=== PATIENT | male | born 1980 | race Caucasian/White ===

== ENCOUNTER 2017-11-12 22:11 | Emergency (ER) | payer MEDICAID, SELFPAY ==
[2017-11-12 22:12] VITALS: BP 121/68; PULSE 80; RESP 17; TEMP 36.8; O2SAT 98; BMI 19.0
--- NOTE | 2017-11-12 23:03 | ED.VISSUMM ---
- ER Visit Summary Date of Service: 11/12/17 Chief Complaint: Redness on hand History of Present Illness: The patient is a 36 M presents to the emergency department with redness on left thumb. The patient states that he works third shift. He states he got home and went to sleep. He states he woke at about 2:00 this afternoon. He had severe itching on his left thumb. He had 3 small areas that look like bites. He denies any fevers or chills. He denies any trauma. He states he is allergic to multiple bites and this feels similar. He states he has never really had anything like this on his hands before. He denies any trauma. He has no history of immunosuppression. Physical Examination: Exam is relatively unremarkable. The patient has 3 small circular areas of erythema the lateral border of the left thumb. There is no streaking. There is no paronychia or felon. There is no evidence of cellulitis. There is no excoriation. Cap refill is less than 2 seconds. Test Results: [] Emergency Department Course and Treatment: It does seem almost allergic this redness that the patient is having. However, as it was acute redness I am going to cover him for both allergic inflammation versus infectious process. The patient was started on prednisone and Benadryl. I will also cover him with Bactrim. He is counseled on concerning symptoms and reasons to return. The patient will be discharged home. Treatment Plan: [] Disposition: Charge Impression: 1. Allergic erythema of left thumb This note was generated with [employer] dictation software. It may contain incorrect words, spelling, and punctuation that were not noted in review of the chart prior to signing ED Disposition - Plan for ED Patient: Chief Complaint: Cellulitis Instructions: ED Bite Sting Insect Local Allergic React Prescriptions: Prednisone 10 mg PO UD #33 tab Smz/Tmp Ds [Bactrim Ds] 1 tab PO BID #14 tab Referrals: Care Physician,No Primary [Primary Care Provider] -
--- NOTE | 2017-11-12 23:09 | ED.DCSUM_ITS ---
- ER Visit Summary Date of Service: 11/12/17 Chief Complaint: Redness on hand History of Present Illness: The patient is a 36 M presents to the emergency department with redness on left thumb. The patient states that he works third shift. He states he got home and went to sleep. He states he woke at about 2: 00 this afternoon. He had severe itching on his left thumb. He had 3 small areas that look like bites. He denies any fevers or chills. He denies any trauma. He states he is allergic to multiple bites and this feels similar. He states he has never really had anything like this on his hands before. He denies any trauma. He has no history of immunosuppression. Physical Examination: Exam is relatively unremarkable. The patient has 3 small circular areas of erythema the lateral border of the left thumb. There is no streaking. There is no paronychia or felon. There is no evidence of cellulitis. There is no excoriation. Cap refill is less than 2 seconds. Test Results: [] Emergency Department Course and Treatment: It does seem almost allergic this redness that the patient is having. However, as it was acute redness I am going to cover him for both allergic inflammation versus infectious process. The patient was started on prednisone and Benadryl. I will also cover him with Bactrim. He is counseled on concerning symptoms and reasons to return. The patient will be discharged home. Treatment Plan: [] Disposition: Charge Impression: 1. Allergic erythema of left thumb This note was generated with [employer] dictation software. It may contain incorrect words, spelling, and punctuation that were not noted in review of the chart prior to signing ED Disposition - Plan for ED Patient: Chief Complaint: Cellulitis Instructions: ED Bite Sting Insect Local Allergic React Prescriptions: Prednisone 10 mg PO UD #33 tab Smz/Tmp Ds [Bactrim Ds] 1 tab PO BID #14 tab Referrals: Care Physician,No Primary [Primary Care Provider] -
[2017-11-12] MEDS: Smz/Tmp Ds Tablet 1 TABLET PO (23:18)
[2017-11-12] MEDS: DiphenhydrAMINE 25 MG Capsule 50 MG PO (23:18)
[2017-11-12] MEDS: predniSONE 20 MG Tablet 60 MG PO (23:19)
== END 2017-11-12 23:22 | disposition home or self-care (01) ==
PROVIDERS: Emergency Provider Emergency Medicine
DX: T78.40XA Allergy, unspecified, initial encounter (principal); X58.XXXA Exposure to other specified factors, initial encounter; Z72.0 Tobacco use
CPT/HCPCS: 99283

== ENCOUNTER 2018-07-10 23:50 | Emergency (ER) | payer OTHER, SELFPAY ==
[2018-07-10 23:52] VITALS: BP 145/82; PULSE 81; RESP 15; TEMP 36.3; O2SAT 100; BMI 19.7
[2018-07-11 00:05] VITALS: BP 145/82; PULSE 81; RESP 18; TEMP 36.3
--- NOTE | 2018-07-11 00:17 | ED.VISSUMM ---
- ER Visit Summary Date of Service: 07/11/18 Chief Complaint: Dental pain History of Present Illness: The patient is a 37 M who presents with dental pain. He has a history of prior dental pain and dental problems but has not actually had any surgeries or procedures such as dental extractions. He does not have a dentist. He states over the past week he has had increased pain particularly in 1 of his right lower molars. Denies heat or cold sensitivity or chest pain shortness of breath nausea vomiting diarrhea. Physical Examination: Afebrile vitals normal Patient has widespread dental decay no focal abscess amenable to incision and drainage here in the emergency department he does have dental tenderness of the right mandibular third molar No trismus uvula midline clear speech Heart regular rate and rhythm Lungs clear Test Results: Not indicated Emergency Department Course and Treatment: Patient was given naproxen and clindamycin here as well as prescriptions for the same. He was given a list of dental resources in the area. He understands to return for new or worsening symptoms. He was discharged. Treatment Plan: [] Disposition: Discharge Impression: Odontalgia This note was generated with [employer] dictation software. It may contain incorrect words, spelling, and punctuation that were not noted in review of the chart prior to signing ED Disposition - Plan for ED Patient: Chief Complaint: Dental Referrals: Care Physician,No Primary [Primary Care Provider] -
--- NOTE | 2018-07-11 00:19 | ED.DEP ---
ED Disposition - Plan for ED Patient: Chief Complaint: Dental Instructions: ED Tooth Pain Prescriptions: Naproxen [Naprosyn] 500 mg PO BID #20 tab Clindamycin HCl 300 mg PO TID #30 cap Referrals: Care Physician,No Primary [Primary Care Provider] -
[2018-07-11] MEDS: Clindamycin HCl 150 MG Capsule 300 MG PO (00:36)
[2018-07-11] MEDS: Naproxen 500 MG Tablet PO (00:36)
--- OUTSIDE RECORDS SUMMARY | 2018-10-14 08:04 | XMS RPT_ITS ---
:1980 Author Organization OHIP Support Name Relationship Address Phone [employer] Unavailable [address] + [address] [place] [address] SHERRI, MARQUIS Unavailable [address] + [place] [address] [employer] Unavailable [address] + [address] [place] [address] SHERRI, MARQUIS Unavailable [address] + [place] [address] [employer] Unavailable [address] + [address] [place] [address] SHERRI, MARQUIS Unavailable [address] + [place] [address] [employer] Unavailable [address] + [address] [place] [address] SHERRI, MARQUIS Unavailable [address] + [place] [address] [employer] Unavailable [address] + [address] [place] [address] SHERRI, MARQUIS Unavailable [address] + [place] [address] [employer] Unavailable [address] + [address] [place] [address] SHERRI, MARQUIS Unavailable [address] + [place] [address] [employer] Unavailable [address] + [address] [place] [address] SHERRI, MARQUIS Unavailable [address] + [place] [address] [employer] Unavailable [address] + [address] [place] [address] MARQUIS POLANCO Unavailable [address] + [place] [address] [employer] Unavailable [address] + [address] [place] [address] MARQUIS POLANCO Unavailable [address] + [place] [address] Care Team Providers Name Role Phone Primay Care Physicia, No Primary Care Unavailable Mark Lux Attending Unavailable Primay Care Physicia, No Primary Care Unavailable Lela Wild Attending Unavailable Primay Care Physicia, No Primary Care Unavailable Thomas, Rainer Admitting Unavailable Taryn, Heron Consulting Unavailable Kittoe, Christiano Attending Unavailable Htomas, Rainer Attending Unavailable Primay Care Physicia, No Primary Care Unavailable Thomas, Rainer Admitting Unavailable Kittoe, Christiano Attending Unavailable Primay Care Physicia, No Primary Care Unavailable Taryn, Heron Consulting Unavailable Kittojaylon, Christiano Consulting Unavailable Thomas, Rainer Admitting Unavailable Kittoe, Christiano Attending Unavailable [place]ay Care Physicia, No Primary Care Unavailable Taryn, Heron Consulting Unavailable Kittoe, Christiano Consulting Unavailable Primay Care Physicia, No Primary Care Unavailable Tyree Dover Attending Unavailable Primay Care Physicia, No Primary Care Unavailable Tyree Dover Attending Unavailable Primay Care Physicia, No Primary Care Unavailable Brian Dorado Attending Unavailable PROBLEMS PROBLEMS No Problem Records FoundPROCEDURES PROCEDURES No Procedure Records FoundRESULTS RESULTS EMERGENCY DEPARTMENT Observed: 08/17/2018 Status: F Source: [place] SUMMARY 3:51 PM [facility] Medical Records Department [address] [place] [address] Emergency Department Summary 08/17/18 1547 MR#: [id number] Acct: [id number] Name: MYLES POLANCO Rep #: [id number] : 1980 37 From: Brian Dorado MD PCP: Care Physician, No Primary Status: REG ER - ER Visit Summary Date of Service: 08/17/18 Chief Complaint: Upper midline abdominal pain with one episode of vomiting. History of Present Illness: The patient is a 37 M who was recently admitted to the hospital and on EGD performed by Dr. Heron Velasco was noted to have a small hiatal hernia and acute gastritis. He was discharged home and prescribed Zofran for his nausea and vomiting and a PPI for his gastritis. Biopsies were taken. He returned several days later and was seen in the emergency room and discharged home. He denies black, maroon colored stool or blood in his stool. He states prior to today the last time he vomited was Friday and only vomited once. He states the fluid was cereal that he just ate. He denies fever, chills night sweats. Denies orthostatic symptoms. He denies cardiac respiratory symptoms. He denies food intolerance. He denies urologic symptoms. Physical Examination: Vital signs noted and normal. He is a thin gentleman. HEENT exam is unremarkable and conjunctive is pink. Lungs are clear to auscultation. Heart is regular without murmur, gallop or rub. Patient has pain to palpation of the upper abdomen. Negative Beth sign. Negative guarding or rebound tenderness. No evidence of umbilical hernia. There is no CVA tenderness noted. Neuro exam is nonfocal. Test Results: NG was placed and there was no blood or coffee- ground gastric fluid. No other tests were done. Emergency Department Course and Treatment: NG was placed to assess for active GI bleeding or recent GI bleed. He was treated with Pepcid and GI cocktail. He reports improvement. Treatment Plan: Discharge to home and follow-up with Dr. Byrd as scheduled Disposition: Discharge in stable condition Impression: 1. Upper abdominal pain secondary to gastritis, acute 2. Nausea and vomiting This note was generated with c3 creations dictation software. It may contain incorrect words, spelling, and punctuation that were not noted in review of the chart prior to signing ED Disposition - Plan for ED Patient: Disposition: Home or Assisted Living Chief Complaint: Abd Pain Instructions: ED Gastritis Referrals: Care Physician,No Primary [Primary Care Provider] - Heron Velasco MD [STAFF PHYSICIAN] - Keep Nagi appointment Additional Instructions: Take Mylanta every 2-4 hours as needed for the next day or 2. Do not question your pills take them as instructed. What to do if you have Problems For any increased pain, shortness of breath, bleeding, nausea or vomiting, chest pain, or any unexpected problems, contact your Primary Care Provider. Call [facility] ([phone]) or report to the closest Emergency Room. Call 911 if necessary. 08/17/18 1551 <Electronically signed by Brian Dorado MD> Date Brian Dorado MD Cosigner Signature (If Indicated): Date CC: No Primary Care Physician; Heron Velasco MD EMERGENCY DEPARTMENT Observed: 08/14/2018 Status: F Source: [place] SUMMARY 3:18 PM [facility] Medical Records Department [address] [place] [address] Emergency Department Summary 08/14/18 1454 MR#: [id number] Acct: [id number] Name: MYLES POLANCO Rep #: [id number] : 1980 37 From: Tyree Dover MD PCP: Care Physician, No Primary Status: REG ER - ER Visit Summary Date of Service: 08/14/18 Chief Complaint: Fatigue History of Present Illness: The patient is a 37 M presents to the emergency department fatigue. The patient was recently admitted a few days ago. He had a Priscila-Horn tear. He underwent endoscopy and was placed on PPI. Patient has been following with Dr. Byrd. He was actually scheduled to start work again tonight, but states he just does not feel like he is strong enough to go back to work. States his pain is markedly improved. He had no further vomiting. He had no bright red blood per rectum. He had no fevers or chills. He states he is just felt mildly fatigued since leaving the hospital. I will just feels like he is improving, but is still mildly uncomfortable. Physical Examination: Vital signs reviewed General: Well-nourished, well-developed Head: Normocephalic, atraumatic Eyes: Pupils equal and reactive, extraocular muscles intact Neck, supple, no lymphadenopathy Heart: Regular rate and rhythm Respiratory: No distress, clear bilaterally Abdomen: Soft, nontender, nondistended, no peritoneal signs Back: Nontender Extremities: Nontender, no edema, no cords Skin: Normal color no rash Neuro: Alert and oriented, no focal or lateralizing deficits Test Results: [] Emergency Department Course and Treatment: The patient presents with fatigue after surgical procedure. He is well-appearing. His vitals are normal. His abdomen is soft and nontender. He states that he does feel like he will be able to go back to surgery on Friday. I do feel that this is reasonable. I am going to write him off for tonight and have him return to work on Friday. He was counseled concerning symptoms and reasons to return. He will be discharged home. Treatment Plan: [] Disposition: Discharge Impression: 1. Fatigue status post surgery This note was generated with c3 creations dictation software. It may contain incorrect words, spelling, and punctuation that were not noted in review of the chart prior to signing ED Disposition - Plan for ED Patient: Chief Complaint: General Illness Instructions: ED Weakness UKO Referrals: Care Physician,No Primary [Primary Care Provider] - What to do if you have Problems For any increased pain, shortness of breath, bleeding, nausea or vomiting, chest pain, or any unexpected problems, contact your Primary Care Provider. Call [facility] ([phone]) or report to the closest Emergency Room. Call 911 if necessary. 08/14/18 1518 <Electronically signed by Tyree Dover MD> Date Tyree Dover MD Cosigner Signature (If Indicated): Date CC: No Primary Care Physician 12 LEAD ELECTROCARDIOGRAM Observed: 08/13/2018 Status: F Source: [place] 4:16 PM [facility] Cardiovascular Services [address] [place] [address] 12 Lead EKG 08/11/18 0504 MR#: [id number] Acct: [id number] Name: MYLES POLANCO Rep #: [id number] : 1980 37 From: Rainer Kee MD Attending Dr: Christiano Singh MD Status: DIS BARRY Ordering Dr: Karen Peterson MD Date: 08/11/18 Location: [facility]3 Sex: M C Admitted: 08/10/18 Test Reason : AM EKG Blood Pressure : / mmHG Vent. Rate : 071 BPM Atrial Rate : 071 BPM P-R Int : 148 ms QRS Dur : 090 ms QT Int : 404 ms P-R-T Axes : 085 066 072 degrees QTc Int : 439 ms Normal sinus rhythm Normal ECG Confirmed by VIDHYA BUTT, RAINER ([id number]), food editor LAWRENCE HAGEN ([id number]) on 08/13/2018 4:16:42 PM Referred By: DAVID Confirmed By:RAINER KEE MD 08/13/18 1616 Date Rainer Kee MD CC: Karen Peterson MD; No Primary Care Physician; Christiano Singh MD Signed PROGRESS Observed: 08/12/2018 Status: COMPLETED Source: [place] 7:07 PM [facility] O ID: [id number] Author: Heron Velasco Service: (none) Author Type: Physician Type: Progress Notes Filed: 08/12/2018 7:10 PM Note Text: OPERATIVE NOTATION FOR [facility] SURGICAL PROCEDURE. August 11, 2018 Myles Polanco 1980 [id number] male PROCEDURE: EGD WITH BIOPSY - [id number] SURGEON: Hawk Velasco M.D. FACS CLERK FUNERAL DETAIL: None DEPT: WQ PROVIDER: [id number] Velasco MD POS: [id number] DIAGNOSIS: (R11.2) Nausea and vomiting, intractability of vomiting not specified, unspecified vomiting type (primary encounter diagnosis) ASA CLASS: 2 - mild FINDINGS: COMPLICATIONS: None PMHx - PAST MEDICAL HISTORY Diagnosis Date - NEGATIVE MEDICAL HISTORY COMORBIDITIES - None Post Op Occurrences - None Wound Classification - Clean Contaminated Operative note dictated in the [facility] dictation system. Heron Velasco MD DISCHARGE SUMMARY Observed: 08/12/2018 Status: F Source: [place] 9:22 AM [facility] Medical Records Department [address] [place] [address] Discharge Summary 08/12/18 0919 MR#: [id number] Acct: [id number] Name: MYLES POLANCO Rep #: [id number] : 1980 37 From: Christiano Singh MD PCP: Care Physician, No Primary Status: ADM BARRY Y Location: [place] [address] Discharge Date and Diagnosis - Problem List Patient Problems: Active and Suspected Problems Priscila-Horn tear (Acute) Hematemesis with nausea (Acute) Abdominal pain (Acute) Date of Admission: 08/10/18 Date of Discharge: 08/12/18 - Primary Discharge Diagnosis Active and Suspected Problems Priscila-Horn tear (Acute) Hematemesis with nausea (Acute) Abdominal pain (Acute) Hospital Course and Treatment Imaging Results: 08/12/18 06:00 Abd Inc Decub and/or Erect [RAD] Routine Summary of Care Provided: Patient is a 37-year-old gentleman who presented with intractable nausea vomiting associated with hematemesis. Admitted to regular nursing floor and consultation placed to Dr. Byrd for possible endoscopic evaluation 1. Suspected gastritis: Patient admitted to a regular nursing floor kept n.p.o. overnight started on PPI and consultation placed to Dr. Byrd for possible endoscopic evaluation. Patient underwent EGD on 08/11/2018 findings included Priscila- Horn tear started on PPI 2. Acute kidney injury secondary to above patient is on IV fluids with monitoring of electrolyte 3. Tobacco dependence counseled on cessation, offered nicotine patch for tobacco cravings 4. DVT prophylaxis low risk did encourage early ambulation Patient Problems: Active and Suspected Problems Priscila-Horn tear (Acute) Hematemesis with nausea (Acute) Abdominal pain (Acute) - Physical Exam General: Alert HEENT: Atraumatic Oral: Moist Mucosa Neck: Supple Lungs: Clear to auscultation Cardiovascular: Regular rate, Regular Rhythm Neurological: Neuro grossly intact Psych/Mental Status: Normal Affect Vital Signs Temp Pulse Resp BP Pulse Ox 97.9 F 73 18 96/58 L 100 08/12/18 08:12 08/12/18 08:12 08/12/18 08:12 08/12/18 08:12 08/12/18 08:12 Oxygen Delivery Method Room Air Weight: 60.5 kg Body Mass Index (BMI) 18.1 Intake and Output for Last 24 Hours Intake Total 2762 / 2762 2082 Output Total 50 / 50 Balance 271 / 2712 2082 Discharge Diet: No Restrictions Discharge Activity: Return to Normal Activity Home Medications: Medications to take at Discharge Ondansetron [Zofran Odt] 4 mg PO Q8H PRN PRN #14 tablet 08/12/18 Pantoprazole Sodium [Protonix] 40 mg PO DAILY #60 tablet 08/12/18 Following Prescrptions Were Given to Patient: Ondansetron [Zofran Odt] 4 mg PO Q8H PRN PRN #14 tablet PRN Reason: Nausea/Vomiting Pantoprazole Sodium [Protonix] 40 mg PO DAILY #60 tablet Primary Care Physician: Care Physician,No Primary [Primary Care Provider] - Please follow up with your Primary Care Physician in: in 1- 2 weeks Please Follow Up With: Heron Velasco MD When: in 1-2 weeks Disposition: Home Minutes spent on discharge:: 35 Patient Condition:: Stable Medical Necessity - Tobacco Use Smoking Status: Current every day smoker Tobacco Use: Cigarettes Meaningful Use Info Meaningful Use Diagnoses (Choose all that apply): None applicable Code Visit OBSV E AND M: 07374 Observation care discharge 08/12/18921 <Electronically signed by Christiano Singh MD> Date Christiano Singh MD Cosigner Signature (if applicable): Date CC: No Primary Care Physician; Christiano Singh MD Signed DISCHARGE INSTRUCTION Observed: 08/12/2018 Status: F Source: [place] 9:19 AM [facility] Medical Records Department [address] [place] [address] Instructions for Home/Discharge Instructions 08/12/18917 MR#: [id number] Acct: [id number] Name: MYLES POLANCO Rep #: [id number] : 1980 37 From: Christiano Singh MD PCP: Care Physician, No Primary Status: ADM BARRY - Discharge Diagnoses Current Active Problems: Current Active and Chronic Problems Hematemesis with nausea (Acute) Abdominal pain (Acute) You will use the following diet at home:: No restrictions Discharge Activity: Return to Normal Activity Allergies/Adverse Reactions: Allergies bee venom protein (honey bee) Allergy (Verified 08/10/18 20:07) Rash clindamycin Allergy (Verified 08/10/18 20:07) Rash Penicillins Allergy (Verified 08/10/18 20:07) Rash GETS A FEVER WELL Medications to take at Discharge Ondansetron [Zofran Odt] 4 mg PO Q8H PRN PRN #14 tablet 08/12/18 Pantoprazole Sodium [Protonix] 40 mg PO DAILY #60 tablet 08/12/18 The following prescriptions were given: Ondansetron [Zofran Odt] 4 mg PO Q8H PRN PRN #14 tablet PRN Reason: Nausea/Vomiting Pantoprazole Sodium [Protonix] 40 mg PO DAILY #60 tablet Primary Care Physician: Care Physician,No Primary [Primary Care Provider] - Please follow up with your Primary Care Physician in: in 1- 2 weeks Test Results: Test results from this visit will be discussed in further detail at your follow-up appointment, if applicable. Please Follow Up With: Heron Velasco MD When: in 1-2 weeks Proposed Discharge Date: 08/12/18 08/12/18918 <Electronically signed by Christiano Singh MD> Date Christiano Singh MD CC: No Primary Care Physician; Heron Velasco MD Signed ABD INC DECUB Observed: 08/12/2018 Status: F Source: [place] AND/OR ERECT 12:00 AM [facility] Imaging Services [address] [place] [address] Abd Inc Decub and/or Erect MR#: [id number] Acct: [id number] Name: MYLES POLANCO T Rep #: [id number] : 1980 M 37 From: Johnnie Rolle PCP: Care Physician, No Primary Status: ADM BARRY Study: Abd Inc Decub and/or Erect Date of Exam: 08/12/18 Exam# [id number] Ordering Dr: Heron Velasco MD STUDY: X-RAY - ABDOMEN/PELVIS REASON FOR EXAM: Male, 37 years old. Hematemesis with nausea and vomiting. TECHNIQUE: AP supine abdomen. COMPARISON: 08/11/2018. FINDINGS: Normal visualized lung bases. Moderate stool throughout the colon. Dilated loop of small bowel left upper quadrant measuring 3.7 cm in transverse dimension. There is no demonstrated free abdominal air. The visualized liver, spleen and kidneys are grossly normal in size and morphology. Normal soft tissue structures. Normal visualized osseous structures. RAD/Abd Inc Decub and/or Erect IMPRESSION: Nonspecific bowel gas pattern. Stool is present throughout the colon which may represent constipation. Isolated dilated loop of proximal small bowel left upper quadrant. Recommend continued follow-up. Consider CT abdomen and pelvis to exclude an early proximal small bowel obstruction. Electronically Signed: Johnnie Rolle MD at 7:23 EST , Service support , CC: No Primary Care Physician; Heron Velasco MD Ic Designer Gate Arrays: Signed ABD INC DECUB Observed: 08/11/2018 Status: F Source: [place] AND/OR ERECT 11:37 AM [facility] Imaging Services [address] [place] [address] Abd Inc Decub and/or Erect MR#: [id number] Acct: [id number] Name: MYLES POLANCO Rep #: [id number] : 1980 M 37 From: Derrick Weems MD PCP: Care Physician, No Primary Status: ADM BARRY Study: Abd Inc Decub and/or Erect Date of Exam: 08/11/18 Exam# [id number] Ordering Dr: Heron Velasco MD STUDY: X-RAY - ABDOMEN/PELVIS REASON FOR EXAM: Male, 37 years old. Abdominal pain post EGD. TECHNIQUE: AP supine and left lateral decubitus views of the abdomen and pelvis on 4 films. COMPARISON: None. FINDINGS: Normal visualized lung bases. There is a nonspecific pattern of gas in nondistended loops of small bowel and colon, including the rectal vault. Moderate stool also seen within the colon to the mid sigmoid. There is no demonstrated free abdominal air. The visualized liver, spleen and kidneys are grossly normal in size and morphology. Normal soft tissue structures. Degenerative changes suggested in the lumbosacral facet joints. RAD/Abd Inc Decub and/or Erect IMPRESSION: Nonspecific bowel gas pattern, as described. No free gas. Electronically Signed: Ortega Weems MD at 16:20 EST , Service support , CC: No Primary Care Physician; Heron Velasco MD Ic Designer Gate Arrays: Signed OPERATIVE REPORT - Observed: 08/11/2018 Status: F Source: [place] ENDOSCOPY 11:12 AM [facility] Medical Records Department [address] [place] [address] Operative Report - Endoscopy MR#: [id number] Acct: [id number] Name: MYLES POLANCO Rep #: [id number] : 1980 37 From: Heron Velasco MD PCP: Care Physician, No Primary Status: ADM BARRY Patient Name: Myles Polanco Procedure Date: 08/11/2018 10:26 AM Date of : 1980 Age: 37 Procedure: Upper GI endoscopy Indications: Hematemesis, Nausea with vomiting Providers: Heron Velasco MD Medicines: Monitored Anesthesia Care Patient Profile: This is a 37 year old male. Refer to note in patient chart for documentation of history and physical. Patient has symptoms. Complications: No immediate complications. Procedure: Pre-Anesthesia Assessment: - Prior to the procedure, a History and Physical was performed, and patient medications and allergies were reviewed. The patient is competent. The risks and benefits of the procedure and the sedation options and risks were discussed with the patient. All questions were answered and informed consent was obtained. Patient identification and proposed procedure were verified by the physician and the nurse in the procedure room. Mental Status Examination: alert and oriented. Airway Examination: normal oropharyngeal airway and neck mobility. Respiratory Examination: clear to auscultation. CV Examination: normal. Prophylactic Antibiotics: The patient does not require prophylactic antibiotics. Prior Anticoagulants: The patient has taken no previous anticoagulant or antiplatelet agents. ASA Grade Assessment: II - A patient with mild systemic disease. After reviewing the risks and benefits, the patient was deemed in satisfactory condition to undergo the procedure. The anesthesia plan was to use moderate sedation / analgesia (conscious sedation). Immediately prior to administration of medications, the patient was re-assessed for adequacy to receive sedatives. The heart rate, respiratory rate, oxygen saturations, blood pressure, adequacy of pulmonary ventilation, and response to care were monitored throughout the procedure. The physical status of the patient was re-assessed after the procedure. After obtaining informed consent, the endoscope was passed under direct vision. Throughout the procedure, the patient's blood pressure, pulse, and oxygen saturations were monitored continuously. The gastroscope was introduced through the mouth, and advanced to the jejunum. The upper GI endoscopy was accomplished without difficulty. The patient tolerated the procedure well. Scope In: 10:57:59 AM Scope Out: 11:04:54 AM Total Procedure Duration Time 0 hours 6 minutes 55 seconds Findings: The examined jejunum was normal. Patchy moderately erythematous mucosa without active bleeding and with no stigmata of bleeding was found in the duodenal bulb. Scattered mild inflammation characterized by erosions, erythema and friability was found in the gastric antrum. Biopsies were taken with a cold forceps for histology. Biopsies were taken with a cold forceps for Helicobacter pylori testing using PyloriTek test. A small hiatal hernia was present. A medium non-bleeding Priscila-Horn tear with stigmata of recent bleeding was found. Non-severe esophagitis with no bleeding was found. Biopsies were taken with a cold forceps for histology. The middle third of the esophagus was normal. Biopsies were taken with a cold forceps for histology. Impression: - Normal examined jejunum. - Erythematous duodenopathy. - Gastritis. Biopsied. - Small hiatal hernia. - Priscila-Horn tear. - Non-severe reflux esophagitis. Biopsied. - Normal middle third of esophagus. Biopsied. Recommendation: - [facility]. - NPO. - Await pathology results. - Continue present medications. Procedure Code(s): --- Professional --- 68816, Esophagogastroduodenoscopy, flexible, transoral; with biopsy, single or multiple CPT copyright 2017 [employer]. All rights reserved. The codes documented in this report are preliminary and upon siebel architect review may be revised to meet current compliance requirements. Heron Velasco MD 08/11/2018 11:12:40 AM This report has been signed electronically. Number of Addenda: 0 Note Initiated On: 08/11/2018 10:26 AM 08/11/18 1112 Date Heron Velasco MD Cosigner Signature: Date (if indicated) CC: No Primary Care Physician; Christinao Singh MD; Heron Velasco MD Date Dictated: 08/11/18 1026 Date Transcribed: Ic Designer Gate Arrays: NEVILLE Signed IMMUNOHISTOCHEMISTRY Observed: 08/11/2018 Status: F Source: [place] 10:45 AM [facility] Patient: MYLES POLANCO : 1980 (37/M) Acct Num: [id number] Phys: Christiano Singh MD Unit Num: [id number] Loc: MS3 [id number] Specimen: [id number] Received: 08/11/18 - 7905 Spec Type: IMMUNO TISSUES 1 TISSUES: A. Stomach, NOS SPECIMEN INFORMATION: Tissue Source: A - Antrum biopsy, B - Distal esophagus biopsy Clinical Info: Nausea and vomiting coffee ground emesis; LUQ pain Specimen Number: [id number] A AND B CPT code: 78927 x2 METHODOLOGY: Deparaffinized sections of prefer/formalin-fixed tissue or PAP/DQ stained slides are incubated with monoclonal/polyclonal antibodies/oligonucleotide probes. Localization is made via biotin free immunoperoxidase method. Appropriate controls are performed and reacted as expected. Results on target cell population are indicated in the following table: RESULTS: ANTIBODY / CLONE RESULT Block A H Pylori (polyclonal) negative Block B P53 (DO-7) negative These tests were developed and their performance characteristics determined by [facility]. They may not have been cleared or approved by the U.S. Food and Drug Administration. The FDA has determined that such clearance or approval is not necessary. INTERPRETATION: A. Antrum, biopsy: Negative for Helicobacter pylori organisms. B. Distal esophagus, biopsy: No evidence of dysplasia. AM:[place] 08/13/18 PHYSICIAN AND INSTITUTION [place] [address] Signed Dillon Wang DO 08/13/18 <signature on file> Performed By: #### PIMM #### [facility] [address] [place] [address]. [place], [address] CONSULTATION Observed: 08/11/2018 Status: F Source: [place] 10:37 AM [facility] Medical Records Department [address] [place] [address] Consultation 08/11/18 1033 MR#: [id number] Acct: [id number] Name: MYLES POLANCO Rep #: [id number] : 1980 37 From: Heron Velasco MD PCP: Care Physician, No Primary Status: ADM BARRY Y Location: [place] [address] Reason for Consult Date of Consultation: 08/11/18 History of Present Illness: The patient is a 37 year old M with a complaint of epigastric pain and nausea. The patient symptoms started approximately 2 days prior to admission. the patient initially felt this was likely the stomach flu. He noted nausea and vomiting. He notes no flatus or bowel movements since Friday. As his symptoms progressed he noted abdominal pain which was more constant in the left upper quadrant. With vomiting, he initially noted just bile and food but later noted a degree of coffee grounds in his vomitus. The patient denies fever or chills. He noted no history of melena prior to this episode. the patient presented to [facility] with these above findings. Due to persistent nausea and vomiting and nasogastric tube was placed. NG aspirate was blood tinged clear fluid without obvious clots or coffee grounds. no additional imaging was performed.laboratory studies were unremarkable. The patient was admitted to the medicine service and I was contacted for upper endoscopy. Past Medical History Allergies bee venom protein (honey bee) Allergy (Verified 08/10/18 20:07) Rash clindamycin Allergy (Verified 08/10/18 20:07) Rash Penicillins Allergy (Verified 08/10/18 20:07) Rash GETS A FEVER WELL Surgical History: no surgical history Smoking Status: Current every day smoker - *Family History Maternal History Items: No pertinent history Review of Systems Constitutional: Reports: Weight Change - 7 pound weight loss over the last few days.. Denies: Chills, Fever HEENT: Denies: Head Aches, Sinus Congestion, Sinus Drainage Cardiovascular: Denies: Chest Pain, Palpitations Respiratory: Denies: Cough, Shortness of breath at rest, Sputum production Gastrointestinal: Reports: Abdominal Pain, Hematemesis, Vomiting. Denies: Nausea Genitourinary: Denies: Dysuria Musculoskeletal: Denies: Joint Pain, Joint Tenderness Skin: Denies: Rash, Wounds Neurological: Denies: Numbness, Tingling, Focal weakness Psychiatric: Denies: Anxiety, Depression, Homicidal Ideations, Suicidal Ideations Hematologic/ Lymphatic: Denies: Easy Bruising, Easy Bleeding Patient Problems: Active and Suspected Problems Hematemesis with nausea (Acute) Abdominal pain (Acute) - Physical Exam General: Alert, Oriented x3, Cooperative HEENT: Atraumatic, PERRLA, EOMI, Normocephalic Neck: Supple, No JVD, Negative Carotid Bruits Lungs: Clear to auscultation, Normal air movement Cardiovascular: Regular rate, No murmurs Abdomen: Bowel Sounds Present, Soft, Tender - mildly so in the left upper quadrant Extremities: No edema, Capillary Refill Less than 3 Seconds Skin: No rashes, No breakdown Musculoskeletal: No Tenderness to Palpation of Joints or Extremities Neurological: Cranial nerves II-XII grossly intact Psych/Mental Status: Normal Affect, Appropriate Vital Signs Temp Pulse Resp BP Pulse Ox 97.8 F 81 18 109/71 100 08/11/18 07:47 08/11/18 07:47 08/11/18 07:47 08/11/18 07:47 08/11/18 07:47 Oxygen Delivery Method Room Air Weight: 60.5 kg Body Mass Index (BMI) 18.1 Intake and Output for Last 24 Hours Intake Total 442 / 442 Output Total 50 / 50 Balance 392 / 392 Laboratory Tests Past 24 Hrs WBC 6.2 5.7 WBC RBC Hgb Hct MCV MCH MCHC RDW RDW Differential Assessment/Plan All Active Problems Hematemesis with nausea (Acute) Abdominal pain (Acute) nausea and vomiting and obstipation, questionable viral gastroenteritis, now with coffee grounds I plan to perform upper endoscopy. The patient understands the risks, benefits, possible complications and alternatives and consents to endoscopy. If there is no significant findings would likely leave the NG tube out. Would also recommend abdominal multiview to assess bowel gas pattern although no specific obstructive pattern was noted with NG placement x-ray. 08/11/18 1037 <Electronically signed by Heron Velasco MD> Date Heron Velasco MD Cosigner Signature (if applicable): Date CC: No Primary Care Physician; Heron Velasco MD Signed CBC W/DIFF, AUTOMATED Collected: 08/11/2018 Status: F Source: [place] 5:02 AM [facility] TYPE CODE TESTS RESULT OUT OF RANGE REFERENCE UNITS LAB L100.1000 4.4-11.0 K/mm3 Normal WBC 5.7 LAB L100.1200 4.6-6.2 M/mm3 Low RBC 4.40 LAB L100.1300 13.0-16.5 g/dl Normal HGB 13.3 LAB L100.1400 40-54 % Low HCT 38.4 LAB L100.1500 80-94 fL Normal MCV 87.3 LAB L100.1600 27.0-32.0 pg Normal MCH 30.2 LAB L100.1700 32-36 g/gl Normal MCHC 34.6 LAB L100.1810 11.6-14.6 % Normal RDW CV 13.0 LAB L100.1820 35.1-43.9 fl Normal RDW SD 40.6 LAB L100.1900 150-450 K/mm3 Normal PLT 182 LAB L100.2000 6.2-12.0 fl Normal MPV 9.1 LAB L100.2100 47-70 % Low NEUT% 46.7 LAB L100.2200 19-41 % Normal LY% 37.4 LAB L100.2300 0-10 % High MONO% 10.9 LAB L100.2400 0-5 % Normal EO% 4.4 LAB L100.2500 0-1 % Normal BASO% 0.4 LAB L100.2550 0.0-0.9 % Normal IM GRAN % 0.200 Result Comment: IG% - Immature Granulocytes (promyelocytes, myelocytes and metamyelocytes) > 1% indicates that a LEFT SHIFT is Present. LAB L100.2620 2.0-7.7 X10 3/uL Normal Absolute Neut 2.7 LAB L100.2720 0.83-4.51 X10 3/ul Normal Absolute Lymph 2.13 Performed By: #### L100.0100 #### [facility] [address] [place], [address] BASIC METABOLIC Collected: 08/11/2018 Status: F Source: [place] PROFILE (BMP) 5:02 AM [facility] TYPE CODE TESTS RESULT OUT OF RANGE REFERENCE UNITS LAB L501.0100 74-106 mg/dL Normal GLU 106 Result Comment: Fasting Glucose result from 100 to 125 mg/dL suggests IMPAIRED HOMEOSTASIS per A.D.A. criteria. Please note revised GLUCOSE reference range effective 2017. LAB L501.1000 7-18 mg/dL High BUN 19 LAB L501.1100 0.70-1.30 mg/dL Normal CREAT,SERUM 1.26 Result Comment: The validity of the calculated GFR AND GFRAA in patients over 70 years has not been determined. Clinical correlation is essential. LAB L501.1110 >60 mL/min Normal EST GFR 68 Result Comment: Non- GFR Calc LAB L501.1115 >60 mL/min Normal EST GFR - AA 83 Result Comment: GFR Calc LAB L501.1255 ml/min Normal Estimated CRCL 68.69 LAB L501.1300 10-20 RATIO Normal BUN/CRE 15.1 LAB L501.2200 8.5-10 mg/dL Low .1 CA 7.5 LAB L501.5300 136-14 mmol/L Normal 5 NA 141 LAB L501.5600 3.5-5. mmol/L Normal 1 K 3.8 LAB L501.5900 98-107 mmol/L High CL 109 LAB L501.6100 21.0-3 mmol/L Normal 2.0 CO2 26.0 LAB L501.6200 5-15 Normal GAP 6 Performed By: #### L500.2500 #### [facility] [address] [place], [address] GASTRIC BIOPSY Observed: 08/11/2018 Status: F Source: [place] 12:00 AM [facility] Patient: MYLES POLANCO : 1980 (37/M) Acct Num: [id number] Phys: Christiano Singh MD Unit Num: [id number] Loc: MS3 [id number] Specimen: [id number] Received: 08/11/18 - 1334 Spec Type: Gastric Bx TISSUES 1 TISSUES: A. Gastric mucous membrane B. Esophagus, NOS C. Esophagus, NOS COMMENT A. The results of immunohistochemistry for Helicobacter pylori will be reported separately ([id number]). B. There is no evidence of dysplasia. Immunohistochemistry ([id number]) supports the above diagnosis. Case has been reviewed in consultation with Dr. Ceron who concurs with the above diagnosis. IDC:SUNG GROSS DESCRIPTION A - Received in fixative is one container labeled with the patient's name and designated antrum biopsy. The specimen consists of one irregular fragment of light doyle soft tissue that measures 0.7 x 0.3 x 0.1 cm. The specimen is totally submitted in one cassette. B - Received in fixative is one container labeled with the patient's name and designated distal esophagus biopsy. The specimen consists of multiple irregular fragments of light doyle soft tissue that in aggregate measure 0.4 x 0.4 x 0.1 cm. The specimen is totally submitted in one cassette. C - Received in fixative is one container labeled with the patient's name and designated mid esophagus biopsy. The specimen consists of multiple irregular fragments of light doyle soft tissue that in aggregate measure 1 x 0.3 x 0.1 cm. The specimen is totally submitted in one cassette. / SJ:[place] 08/11/18 TC:4 CPT: 40752 x3 HEADER OPERATION: EGD ([facility]) PRE-OP DIAGNOSIS: Nausea and vomiting coffee ground emesis, left upper quadrant pain TISSUE SUBMITTED: A - Antrum biopsy for H. pylori and path, B - Distal esophagus biopsy, C - Mid esophagus biopsy MICROSCOPIC DESCRIPTION Slides are reviewed. MICROSCOPIC DIAGNOSIS A. Gastric antrum, biopsy: Minimal chronic inflammation. See comment. B. 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 Squamous mucosa with no pathologic change. See comment. C. Mid esophagus, biopsy: Fragments of benign squamous mucosa. No evidence of inflammation. AM:[place] 08/12/18 Signed Dillon Wang DO 08/12/18 <signature on file> Performed By: #### PGASB #### [facility] [address] [place], [place], [address] CNOP Observed: 08/11/2018 Status: COMPLETED Source: [place] 12:00 AM [facility] Operative Note (Enc) (GENSWS) Progress Notes: Heron Velasco MD 08/12/2018 7:10 PM Signed OPERATIVE NOTATION FOR [facility] SURGICAL PROCEDURE. August 11, 2018 Myles Polanco 1980 [id number] male PROCEDURE: EGD WITH BIOPSY - [id number] SURGEON: Hawk Velasco M.D. FACS CLERK FUNERAL DETAIL: None DEPT: WTeresa PROVIDER: [id number] Velasco MD POS: [id number] DIAGNOSIS: (R11.2) Nausea and vomiting, intractability of vomiting not specified, unspecified vomiting type (primary encounter diagnosis) ASA CLASS: 2 - mild FINDINGS: COMPLICATIONS: None PMHx - PAST MEDICAL HISTORY Diagnosis Date - NEGATIVE MEDICAL HISTORY COMORBIDITIES - None Post Op Occurrences - None Wound Classification - Clean Contaminated Operative note dictated in the [facility] dictation system. Heron Velasco MD Encounter Status:Closed by HERON VELASCO MD on 08/12/18 HISTORY AND PHYSICAL Observed: 08/10/2018 Status: F Source: [place] EXAM 11:57 PM [facility] Medical Records Department [address] [place] [address] History and Physical 08/10/18 2348 MR#: [id number] Acct: [id number] Name: MYLES POLANCO Rep #: [id number] : 1980 37 From: Rainer Thomas MD PCP: Care Physician, No Primary Status: REG ER Y Location: ED Problem List (1) Hematemesis with nausea Status: Acute (2) Abdominal pain Status: Acute Qualifiers: Abdominal location: epigastric Qualified Code(s): R10.13 - Epigastric pain History of Present Illness Date of Admission: 08/10/18 Chief Complaint: abdominal pain, nausea and vomiting The patient is a 37 year old male patient who presents to the ER with nausea and vomiting. Onset of this began on Friday and has progressed. Today he has vomited more than three times and describes some of the emesis to be dark like coffee grounds. In the ER he has received anti-emetics and has had an NG tube placed. He will be admitted for EGD for possible ulcer vs gastritis. He denies previous history of ulcer. No chest pain or shortness of breath. He is uncomfortable with current NG tube. He will be admitted for observation to general medical floor for further management. Past Medical History Allergies bee venom protein (honey bee) Allergy (Verified 08/10/18 20:07) Rash clindamycin Allergy (Verified 08/10/18 20:07) Rash Penicillins Allergy (Verified 08/10/18 20:07) Rash GETS A FEVER WELL Home Medications: Ambulatory Orders Medication Instructions Recorded Naproxen [Naprosyn] 500 mg PO BID #20 tab 07/11/18 Azithromycin [Zithromax Z-Drew] 250 mg PO UD #1 box 07/14/18 Surgical History: no surgical history Smoking Status: Current every day smoker - *Family History Maternal History Items: No pertinent history Review of Systems Constitutional: Denies: Chills, Fever, Weight Change HEENT: Denies: Head Aches, Sinus Congestion, Sinus Drainage Cardiovascular: Denies: Chest Pain, Palpitations Respiratory: Denies: Cough, Shortness of breath at rest, Sputum production Gastrointestinal: Reports: Abdominal Pain, Dyspepsia, Hematemesis, Nausea, Vomiting Genitourinary: Denies: Dysuria Musculoskeletal: Denies: Joint Pain, Joint Tenderness Skin: Denies: Rash, Wounds Neurological: Denies: Numbness, Tingling, Focal weakness Psychiatric: Denies: Anxiety, Depression, Homicidal Ideations, Suicidal Ideations Hematologic/ Lymphatic: Denies: Easy Bruising, Easy Bleeding VTE Information - Inpt Only VTE Present on Admission: No VTE Mechan Device Prophylaxis: SCD's VTE Pharm Prophylaxis ordered?: No Reason prophylaxis not ordered:: Medical Contraindication Patient Problems: Active and Suspected Problems Hematemesis with nausea (Acute) Abdominal pain (Acute) - Physical Exam General: Alert, Oriented x3, Cooperative HEENT: Atraumatic, Normocephalic Neck: Supple Lungs: Clear to auscultation, Normal air movement, No rhonchi, No wheeze, No rales Cardiovascular: Regular rate, Regular Rhythm, Normal S1, Normal S2, No murmurs Abdomen: Non-Distended, Hypoactive Bowel Sounds, Tender - epigastrium, No hernias noted Extremities: No edema Skin: No rashes Musculoskeletal: No Tenderness to Palpation of Joints or Extremities Neurological: Neuro grossly intact Psych/Mental Status: Normal Affect, Appropriate Vital Signs Temp Pulse Resp BP Pulse Ox 97.4 F L 95 18 113/79 100 08/10/18 20:07 08/10/18 23:05 08/10/18 23:05 08/10/18 23:05 08/10/18 23:05 Oxygen Delivery Method Room Air Weight: 133 lb 6.075 oz Body Mass Index (BMI) 18.1 Laboratory Tests Past 24 Hrs WBC 6.2 RBC 4.75 Hgb 14.4 Hct 41.4 MCV 87.2 Assessment/Plan All Active Problems Hematemesis with nausea (Acute) Abdominal pain (Acute) Plan 1. Nausea and vomiting with hematemesis- admit to general medical floor. Protonix 40mg IV BID, Consult Dr Velasco for EGD, continue NG to low intermittent suction. phenergan 12.5mg IVq 6hrs, zofran 8mg q 8hrs prn, morphine 4 mg IV q 2 hrs prn pain. NPO, IV D51/2 normal saline with 20meq KCl at 125 cc/hr. CBC, BMP in am, NPO. 2. SCDs for DVT prophylaxis Code Visit OBSV E AND M: [id number] Initial observation care L2 08/10/18 0808 <Electronically signed by Rainer Thomas MD> Date Rainer Thomas MD Cosigner Signature: Date (if applicable) CC: No Primary Care Physician; Rainer Thomas MD Signed EMERGENCY DEPARTMENT Observed: 08/10/2018 Status: F Source: [place] SUMMARY 11:50 PM [facility] Medical Records Department [address] [place] [address] Emergency Department Summary 08/10/18 2151 MR#: [id number] Acct: [id number] Name: MYLES POLANCO Rep #: [id number] : 1980 37 From: Alexsandra Christopher MD PCP: Care Physician, No Primary Status: REG ER - ER Visit Summary Date of Service: 08/10/18 Chief Complaint: Vomiting History of Present Illness: The patient is a 37 M presenting with vomiting since Friday. He states he has had 2-3 episodes of vomiting today. He denies diarrhea. He states he has been constipated. He complains of diffuse abdominal pain. He denies fever. He states he vomited black stuff today, denies bright red blood. Denies other complaints. Physical Examination: Vitals are stable. Heart rate 104. Patient is afebrile. Alert no acute distress. HEENT exam dry mucous membranes Neck is supple. Lungs are clear and equal bilaterally. Heart is regular rate and tachycardic Abdomen is soft diffuse tenderness with no rebound or guarding Extremities are unremarkable. Skin is warm and dry. Remainder of exam is unremarkable. Emergency Department Course and Treatment: Patient given IV fluids, morphine, Zofran. CBC, chemistries unremarkable other than BUN 22, creatinine 1.34. AST 48, lipase is 102. Due to his complaint of black emesis, NG tube was placed. Coffee- ground emesis returned. He was given Protonix IV. Discussed with Dr. Thomas for admission. Disposition: Admission Impression: Upper GI bleed This note was generated with c[employer] creations dictation software. It may contain incorrect words, spelling, and punctuation that were not noted in review of the chart prior to signing ED Disposition - Plan for ED Patient: Chief Complaint: Nausea/Vomiting Referrals: Care Physician,No Primary [Primary Care Provider] - What to do if you have Problems For any increased pain, shortness of breath, bleeding, nausea or vomiting, chest pain, or any unexpected problems, contact your Primary Care Provider. Call [facility] ([phone]) or report to the closest Emergency Room. Call 911 if necessary. 08/10/18 0040 <Electronically signed by Alexsandra Christopher MD> Date Alexsandra Christopher MD Cosigner Signature (If Indicated): Date CC: No Primary Care Physician ABDOMEN SINGLE VIEW Observed: 08/10/2018 Status: F Source: [place] (PORTABLE) 9:50 PM [facility] Imaging Services [facility] [place] [address] Abdomen Single View (Portable) MR#: [id number] Acct: [id number] Name: MYLES POLANCO Rep #: [id number] : 1980 M 37 From: Sam Reveles MD PCP: Care Physician, No Primary Status: REG ER Study: Abdomen Single View (Portable) Date of Exam: 08/10/18 Exam# [id number] Ordering Dr: Alexsandra Christopher MD STUDY: X-RAY - ABDOMEN/PELVIS REASON FOR EXAM: Male, 37 years old. Status post nasogastric placement. TECHNIQUE: Single AP view of the abdomen / pelvis. COMPARISON: None. FINDINGS: There is a nasogastric tube with its tip in the region of the gastric fundus. There are nonspecific gaseous bowel loops. The pelvic region is not included on this examination. RAD/Abdomen Single View (Portable) IMPRESSION: Nasogastric tube with the tip in the region of the gastric fundus. Electronically Signed: Sam Reveles MD at 23:15 EST Tel , Service support , CC: No Primary Care Physician; Alexsandra Christopher MD Ic Designer Gate Arrays: Signed BASIC METABOLIC Collected: 08/10/2018 Status: F Source: [place] PROFILE (BMP) 9:00 PM [facility] TYPE CODE TESTS RESULT OUT OF RANGE REFERENCE UNITS LAB L501.0100 74-106 mg/dL Normal GLU 98 Result Comment: Please note revised GLUCOSE reference range effective 2017. LAB L501.1000 7-18 mg/dL High BUN 22 LAB L501.1100 0.70-1.30 mg/dL High CREAT,SERUM 1.34 Result Comment: The validity of the calculated GFR AND GFRAA in patients over 70 years has not been determined. Clinical correlation is essential. LAB L501.1110 >60 mL/min Normal EST GFR 64 Result Comment: Non- GFR Calc LAB L501.1115 >60 mL/min Normal EST GFR - AA 77 Result Comment: GFR Calc LAB L501.1255 ml/min Normal Estimated CRCL 64.59 LAB L501.1300 10-20 RATIO Normal BUN/CRE 16.4 LAB L501.2200 8.5-10 mg/dL Low .1 CA 8.4 LAB L501.5300 136-14 mmol/L Normal 5 NA 139 LAB L501.5600 3.5-5. mmol/L Normal 1 K 3.7 LAB L501.5900 98-107 mmol/L Normal CL 103 LAB L501.6100 21.0-3 mmol/L Normal 2.0 CO2 26.0 LAB L501.6200 5-15 Normal GAP 10 Performed By: #### L500.2500, L500.3400, L501.2450 #### [facility] [address] [place], [address] LIVER PROFILE Collected: 08/10/2018 Status: F Source: [place] 9:00 [facility] [place] [facility] TYPE CODE TESTS RESULT OUT OF RANGE REFERENCE UNITS LAB L501.1500 6.4-8.2 g/dL Normal T PROT 7.6 LAB L501.1800 3.2-5.0 g/dL Normal ALB 4.3 LAB L501.1950 2.2-4.2 g/dL Normal GLOB 3.3 LAB L501.4100 15-37 U/L High AST 48 LAB L501.4305 45-117 U/L Normal ALK P 71 LAB L501.4405 16-61 U/L Normal ALT 43 LAB L501.4600 0.20-1.00 mg/dL Normal T BILI 0.80 LAB L501.4700 0.00-0.30 mg/dL Normal D BILI 0.21 Performed By: #### L500.2500, L500.3400, L501.2450 #### [facility] [address] [place], [place], [id number] LIPASE Collected: 08/10/2018 Status: F Source: [place] 9:00 PM [facility] TYPE CODE TESTS RESULT OUT OF RANGE REFERENCE UNITS LAB L501.2450 73-393 U/L Normal LIPASE 102 Performed By: #### L500.2500, L500.3400, L501.2450 #### [facility] [address] [facility] [address] [place], [place], [address] CBC W/DIFF, AUTOMATED Collected: 08/10/2018 Status: F Source: [place] 9:00 PM [facility] TYPE CODE TESTS RESULT OUT OF RANGE REFERENCE UNITS LAB L100.1000 4.4-11.0 K/mm3 Normal WBC 6.2 LAB L100.1200 4.6-6.2 M/mm3 Normal RBC 4.75 LAB L100.1300 13.0-16.5 g/dl Normal HGB 14.4 LAB L100.1400 40-54 % Normal HCT 41.4 LAB L100.1500 80-94 fL Normal MCV 87.2 LAB L100.1600 27.0-32.0 pg Normal MCH 30.3 LAB L100.1700 32-36 g/gl Normal MCHC 34.8 LAB L100.1810 11.6-14.6 % Normal RDW CV 13.1 LAB L100.1820 35.1-43.9 fl Normal RDW SD 41.7 LAB L100.1900 150-450 K/mm3 Normal PLT 197 LAB L100.2000 6.2-12.0 fl Normal MPV 9.3 LAB L100.2100 47-70 % Normal NEUT% 57.6 LAB L100.2200 19-41 % Normal LY% 31.0 LAB L100.2300 0-10 % Normal MONO% 9.6 LAB L100.2400 0-5 % Normal EO% 1.6 LAB L100.2500 0-1 % Normal BASO% 0.2 LAB L100.2550 0.0-0.9 % Normal IM GRAN % 0.000 Result Comment: IG% - Immature Granulocytes (promyelocytes, myelocytes and metamyelocytes) > 1% indicates that a LEFT SHIFT is Present. LAB L100.2620 2.0-7.7 X10 3/uL Normal Absolute Neut 3.6 LAB L100.2720 0.83-4.51 X10 3/ul Normal Absolute Lymph 1.91 Performed By: #### L100.0100 #### [facility] [address] [facility] [place], [address] EMERGENCY DEPARTMENT Observed: 07/15/2018 Status: F Source: [place] SUMMARY 11:37 PM [facility] Medical Records Department [address] [place] [address] Emergency Department Summary 07/14/18 1131 MR#: [id number] Acct: [id number] Name: MYLES POLANCO Rep #: [id number] : 1980 37 From: Lela Wild MD PCP: Care Physician, No Primary Status: DEP ER - ER Visit Summary Date of Service: 07/14/18 Chief Complaint: [] Concern for reaction to clindamycin History of Present Illness: The patient is a 37 M [] for dental pain for weeks he was seen in the emergency department recently, started on clindamycin due to allergy to penicillin Take clindamycin for a few days and believes it made him sick with nonspecific sense of skin changes, GI issues so he stopped the clindamycin a few days ago and all the symptoms went away, his dental pain is well controlled with Naprosyn and he has had no fever no facial swelling no drainage, he is not follow-up with a dentist as instructed, denies other complaints Physical Examination: [] 151/88 afebrile General, no distress resting comfortably HEENT is generally unremarkable kept he does have cavities to the right upper mouth other diffuse dental decay, there is no abscess no swelling anywhere gingival gumline is normal no drainage no odor opening closing the mouth is normal tongue is flat no signs of dental abscess infection or other acute gross abnormalities, airway is entirely normal The neck is supple no adenopathy Cardiovascular, regular rate and rhythm Lungs, clear bilateral Abdomen, soft nontender Extremities, no clubbing cyanosis or edema Neurologic, awake alert answering questions appropriately moving all 4 extremities Patient stop the clindamycin his complaints from that have resolved his dental complaints also have resolved I explained to him I am not sure if these are really related to clindamycin or other conditions he believes he still requires antibiotics I explained to him he might want to consider just taking and continue the Naprosyn until he seen by dental services as to his insistence for the antibiotics he is given azithromycin Z- Drew which have asked him to hold for a few days follow-up with dental services and return for change in symptoms, I further explained to him that his dental problem will not go away until he sees a dentist Test Results: [] Emergency Department Course and Treatment: [] Treatment Plan: [] Disposition: [] Home stable Impression: [] Dental pain, dental decay This note was generated with c3 creations dictation software. It may contain incorrect words, spelling, and punctuation that were not noted in review of the chart prior to signing ED Disposition - Plan for ED Patient: Chief Complaint: Dental Referrals: Care Physician,No Primary [Primary Care Provider] - What to do if you have Problems For any increased pain, shortness of breath, bleeding, nausea or vomiting, chest pain, or any unexpected problems, contact your Primary Care Provider. Call [facility] ([phone]) or report to the closest Emergency Room. Call 911 if necessary. 07/15/18 2337 <Electronically signed by Lela Wild MD> Date Lela Wild MD Cosigner Signature (If Indicated): Date CC: No Primary Care Physician DISCHARGE INSTRUCTION Observed: 07/14/2018 Status: F Source: [place] 11:35 AM [facility] Medical Records Department [address] [place] [address] Discharge Instruction 07/14/18 1134 MR#: [id number] Acct: [id number] Name: MYLES POLANCO Rep #: [id number] : 1980 37 From: Lela Wild MD PCP: Irene Boss, No Primary Status: PRE ER ED Disposition - Plan for ED Patient: Chief Complaint: Dental Instructions: ED Tooth Pain, ED Cavity Dental Prescriptions: Azithromycin [Zithromax Z-Drew] 250 mg PO UD #1 box Referrals: Irene Physician,No Primary [Primary Care Provider] - What to do if you have Problems For any increased pain, shortness of breath, bleeding, nausea or vomiting, chest pain, or any unexpected problems, contact your Primary Care Provider. Call [facility] ([phone]) or report to the closest Emergency Room. Call 911 if necessary. 07/14/18 1135 <Electronically signed by Lela Wild MD> Date Lela Wild MD Cosigner Signature (If Indicated): Date CC: No Primary Care Physician DISCHARGE INSTRUCTION Observed: 07/11/2018 Status: F Source: [place] 12:21 AM [facility] Medical Records Department [address] [place] [address] Discharge Instruction 07/11/18 0019 MR#: [id number] Acct: [id number] Name: MYLES POLANCO Rep #: [id number] : 1980 37 From: Mark Lux MD PCP: Irene Physician, [place] Primary Status: PRE ER ED Disposition - Plan for ED Patient: Chief Complaint: Dental Instructions: ED Tooth Pain Prescriptions: Naproxen [Naprosyn] 500 mg PO BID #20 tab Clindamycin HCl 300 mg PO TID #30 cap Referrals: Care Physician,No Primary [Primary Care Provider] - What to do if you have Problems For any increased pain, shortness of breath, bleeding, nausea or vomiting, chest pain, or any unexpected problems, contact your Primary Care Provider. Call [facility] ([phone]) or report to the closest Emergency Room. Call 911 if necessary. 07/11/18 0021 <Electronically signed by Mark Lux MD> Date Mark Jose J MD Cosigner Signature (If Indicated): Date CC: No Primary Care Physician EMERGENCY DEPARTMENT Observed: 07/11/2018 Status: F Source: [place] SUMMARY 12:19 AM [facility] Medical Records Department [address] [place] [address] Emergency Department Summary 07/11/18 0017 MR#: [id number] Acct: [id number] Name: MYLES POLANCO Rep #: [id number] : 1980 37 From: Mark Lux MD PCP: Care Physician, No Primary Status: PRE ER - ER Visit Summary Date of Service: 07/11/18 Chief Complaint: Dental pain History of Present Illness: The patient is a 37 M who presents with dental pain. He has a history of prior dental pain and dental problems but has not actually had any surgeries or procedures such as dental extractions. He does not have a dentist. He states over the past week he has had increased pain particularly in 1 of his right lower molars. Denies heat or cold sensitivity or chest pain shortness of breath nausea vomiting diarrhea. Physical Examination: Afebrile vitals normal Patient has widespread dental decay no focal abscess amenable to incision and drainage here in the emergency department he does have dental tenderness of the right mandibular third molar No trismus uvula midline clear speech Heart regular rate and rhythm Lungs clear Test Results: Not indicated Emergency Department Course and Treatment: Patient was given naproxen and clindamycin here as well as prescriptions for the same. He was given a list of dental resources in the area. He understands to return for new or worsening symptoms. He was discharged. Treatment Plan: [] Disposition: Discharge Impression: Odontalgia This note was generated with c3 creations dictation software. It may contain incorrect words, spelling, and punctuation that were not noted in review of the chart prior to signing ED Disposition - Plan for ED Patient: Chief Complaint: Dental Referrals: Care Physician,No Primary [Primary Care Provider] - What to do if you have Problems For any increased pain, shortness of breath, bleeding, nausea or vomiting, chest pain, or any unexpected problems, contact your Primary Care Provider. Call [facility] ([phone]) or report to the closest Emergency Room. Call 911 if necessary. 07/11/18 0019 <Electronically signed by Mark Lux MD> Date Mark Lux MD Cosigner Signature (If Indicated): Date CC: No Primary Care Physician PROGRESS Observed: 05/11/2018 Status: COMPLETED Source: [place] 1:37 PM [facility] [place] REPOSITORY HNO ID: [id number] Author: Gerson Miller Service: (none) Author Type: Physician Type: Progress Notes Filed: 05/11/2018 4:18 PM Note Text: Patient presents with: Vomiting: diarrhea, chills, loss of appetite, x 4 days HPI: Feeling sick for 4 days. Vomiting resolved, diarrhea remains. Positive symptoms: Chills, fever (up to 102.2, none today), Vomiting, Diarrhea, low energy, light-headed, sick co-workers, abdominal cramps Negative symptoms: blood in stool, hematemesis, OTC: theraflu PAST MEDICAL HISTORY Diagnosis Date - NEGATIVE MEDICAL HISTORY PAST SURGICAL HISTORY Procedure Laterality Date - TONSILLECTOMY HX MEDICATIONS: No current outpatient prescriptions on file. No current facility-administered medications for this visit. ALLERGIES: ALLERGIES Allergen Reactions - Penicillins Rash, Hives VITALS: BP 102/62 Pulse 64 Temp 36.1 ?C (96.9 ?F) (Tympanic) Resp 16 Wt 63 kg (139 lb) PHYSICAL EXAM: GEN: mildly ill appearing HEENT: PERRL, EOMI, conjunctiva clear Throat: moist mucous membranes, mild erythema, no exudate Neck: supple, no thyromegaly, no lymphadenopathy HEART: regular rate and rhythm, no murmurs LUNGS: clear to auscultation, no wheezes or crackles, no increased WOB ABD: Soft, non-distended, diffusely uncomfortable, no masses ASSESSMENT/PLAN: 1. Gastroenteritis - ICD9: 558.9, ICD10: K52.9 Hydration encouraged. Resume normal solid intake as tolerated. Hand hygiene to reduce transmission discussed. Follow up in the ER with signs of dehydration, increasing abdominal pain, high fever, or blood in vomit or stool. Gerson Miller MD CNOV Observed: 05/11/2018 Status: COMPLETED Source: [place] 1:30 PM [facility] Office Visit (WSTR) MYLES POLANCO ([id number]) 1980 M Date Time Provider Department 05/11/18 1:30 PM GERSON MILLER [facility] During your visit today, we recorded the following information about you: Temperature Pulse Respiration Blood pressure 96.9 degrees 64/minute 16/minute 102/62 Weight 63 kg Gerson Miller MD 05/11/2018 4:18 PM Signed Patient presents with: Vomiting: diarrhea, chills, loss of appetite, x 4 days HPI: Feeling sick for 4 days. Vomiting resolved, diarrhea remains. Positive symptoms: Chills, fever (up to 102.2, none today), Vomiting, Diarrhea, low energy, light-headed, sick co-workers, abdominal cramps Negative symptoms: blood in stool, hematemesis, OTC: theraflu PAST MEDICAL HISTORY Diagnosis Date - NEGATIVE MEDICAL HISTORY PAST SURGICAL HISTORY Procedure Laterality Date - TONSILLECTOMY HX MEDICATIONS: No current outpatient prescriptions on file. No current facility-administered medications for this visit. ALLERGIES: ALLERGIES Allergen Reactions - Penicillins Rash, Hives VITALS: BP 102/62 Pulse 64 Temp 36.1 ?C (96.9 ?F) (Tympanic) Resp 16 Wt 63 kg (139 lb) PHYSICAL EXAM: GEN: mildly ill appearing HEENT: PERRL, EOMI, conjunctiva clear Throat: moist mucous membranes, mild erythema, no exudate Neck: supple, no thyromegaly, no lymphadenopathy HEART: regular rate and rhythm, no murmurs LUNGS: clear to auscultation, no wheezes or crackles, no increased WOB ABD: Soft, non-distended, diffusely uncomfortable, no masses ASSESSMENT/PLAN: 1. Gastroenteritis - ICD9: 558.9, ICD10: K52.9 Hydration encouraged. Resume normal solid intake as tolerated. Hand hygiene to reduce transmission discussed. Follow up in the ER with signs of dehydration, increasing abdominal pain, high fever, or blood in vomit or stool. Gerson Miller MD Referring Provider: SELF [200] Allergies As of Date: 05/11/2018 Noted Allergy Reaction PENICILLINS 05/11/2018 2 - Rash 4 - Hives Date Reviewed: Never Reviewed Reason for Visit: Vomiting [120] Cmt: diarrhea, chills, loss of appetite, x 4 days Primary Visit Diagnosis:Gastroenteritis [K52.9] Problem List As Of Date: 05/11/2018 (None) Letter Text [facility] [address] [place], [place] [address] 05/11/2018 Myles Modi Sherri CCF# [id number] 07/[address] [place] [address] TO WHOM IT MAY CONCERN: This is to confirm that Myles Modi Sherri had an appointment and was seen at the [facility] in the Department of Urgent Care by Gerson Miller MD on 05/11/2018 for illness and should be excused from work today. Sincerely, Gerson Miller MD Encounter Status:Closed by GERSON MILLER MD on 05/11/18 EMERGENCY DEPARTMENT Observed: 11/12/2017 Status: F Source: [place] SUMMARY 11:48 PM [facility] Medical Records Department [address] [place] [address] Emergency Department Summary 11/12/17 2303 MR#: [id number] Acct: [id number] Name: MYLES POLANCO Rep #: [id number] : 1980 36 From: Tyree Dover MD PCP: Care Physician, No Primary Status: DEP ER - ER Visit Summary Date of Service: 11/12/17 Chief Complaint: Redness on hand History of Present Illness: The patient is a 36 M presents to the emergency department with redness on left thumb. The patient states that he works third shift. He states he got home and went to sleep. He states he woke at about 2:00 this afternoon. He had severe itching on his left thumb. He had 3 small areas that look like bites. He denies any fevers or chills. He denies any trauma. He states he is allergic to multiple bites and this feels similar. He states he has never really had anything like this on his hands before. He denies any trauma. He has no history of immunosuppression. Physical Examination: Exam is relatively unremarkable. The patient has 3 small circular areas of erythema the lateral border of the left thumb. There is no streaking. There is no paronychia or felon. There is no evidence of cellulitis. There is no excoriation. Cap refill is less than 2 seconds. Test Results: [] Emergency Department Course and Treatment: It does seem almost allergic this redness that the patient is having. However, as it was acute redness I am going to cover him for both allergic inflammation versus infectious process. The patient was started on prednisone and Benadryl. I will also cover him with Bactrim. He is counseled on concerning symptoms and reasons to return. The patient will be discharged home. Treatment Plan: [] Disposition: Charge Impression: 1. Allergic erythema of left thumb This note was generated with c3 creations dictation software. It may contain incorrect words, spelling, and punctuation that were not noted in review of the chart prior to signing ED Disposition - Plan for ED Patient: Chief Complaint: Cellulitis Instructions: ED Bite Sting Insect Local Allergic React Prescriptions: Prednisone 10 mg PO UD #33 tab Smz/Tmp Ds [Bactrim Ds] 1 tab PO BID #14 tab Referrals: Care Physician,No Primary [Primary Care Provider] - What to do if you have Problems For any increased pain, shortness of breath, bleeding, nausea or vomiting, chest pain, or any unexpected problems, contact your Primary Care Provider. Call [facility] ([phone]) or report to the closest Emergency Room. Call 911 if necessary. 11/12/17 5033 <Electronically signed by Tyree Dover MD> Date Tyree Lizama Signature (If Indicated): Date CC: No Primary Care Physician ALLERGIES ALLERGIES DATE TYPE / CODE NAME / CODE REACTION SEVERITY SOURCE 08/17/2018 Drug Penicillins/F0 Rash Unknown [facility] Allergy/4160 [id number]([place] 1814702(SNOMED M) Repository CT) 08/17/2018 Drug bee venom Rash Unknown [facility] Allergy/4160 protein ([place] [address](OMED bee)/[id number] Repository CT) 5(RXNORM) 08/17/2018 Drug clindamycin/F0 Rash Unknown [facility] Allergy/4160 [id number]([place] [address](SNOMED M) Repository CT) ENCOUNTERS ENCOUNTERS ADMIT/DISCHARGE ACCOUNT ADMITTING ENCOUNTER LOCATION SOURCE NUMBER CLASS 08/17/2018/08/17/19 [id number] Emergency [address] ing:ED Repository 08/14/2018/08/14/19 [id number] Emergency [address] ing:ED Repository 08/10/2018/08/12/19 [id number] [facility] [address] ing:LF2Gvse: Repository EQ472Rro: 1 08/10/2018 [id number] [facility] BMSBuilding:[facility] Repository 08/10/2018 [id number] [facility]MS[facility] Repository 08/10/2018 [id number] Ambulatory BMSBuilding:[facility] Repository 07/14/2018/07/14/20 [id number] Emergency [address] ing:ED Repository 07/10/2018/07/11/20 [id number] Emergency [address] ing:ED Repository 05/11/2018/05/12/20 [id number] Ambulatory [address] Repository 11/12/2017/11/13/19 [id number] Emergency [address] ing:ED Repository PAYERS PAYERS ENCOUNTER GUARANTOR PAYER SUBSCRIBER SOURCE 08/17/2018 MYLES Modi Primary MYLES Mohan [id number] 1/2 E Insurance:MEDICAL BEACHYDOB: [facility] [id number], Number: Repository [place] [address]Nhn: [id number] Date:8887-41-05AX BOX (HP) [address] [address]LO: 08/17/2018 Secondary NOT GIVENUNK [place] Insurance:SELF PAY [facility] Number: Effective Repository Date:2018-08-17 08/14/2018 MYLES T Primary MYLES Mohan [id number] [address] Insurance:MEDICAL BEACHYDOB: [facility] [id number], Number: Repository [place] [id number]: [id number] Date:8693-46-31JO BOX () [address] [address]GP: 08/14/2018 Secondary NOT GIVENUNK [place] Insurance:SELF PAY [facility] Number: Effective Repository Date:2018-08-14 08/10/2018 MYLES T Primary MYLES Mohan [id number] 1/2 E Insurance:MEDICAL BEACHYDOB: [facility] [id number], Number: Repository [place] [address]Mbz: [id number] Date:4500-56-19DC B[address] () [address] [address]XH: 08/10/2018 Secondary NOT GIVENUNK [place] Insurance:SELF PAY [facility] Number: Effective Repository Date:2018-08-10 08/10/2018 MYLES T Primary MYLES Mohan [id number] 1/2 E Insurance:MEDICAL BEACHYDOB: Community MAIN [facility] [id number], Number: Repository [place] [address]Jiz: [id number] Date:6472-86-43WS BOX (HP) [address] [address]UW: 08/10/2018 Secondary NOT GIVENUNK [place] Insurance:SELF PAY [facility] Number: Effective Repository Date:2018-08-10 08/10/2018 MYLES Modi Primary MYLES Modi [place] [id number] 07/29 E Insurance:MEDICAL BEACHYDOB: Community MAIN [facility] [id number], Number: Repository [place] [address]Cbk: [id number] Date:4046-31-81GJ B[address] () [address] [address]NF: 08/10/2018 Secondary NOT GIVENUNK [place] Insurance:SELF PAY [facility] Number: Effective Repository Date:2018-08-10 08/10/2018 MYLES Primary MYLES Modi [place] [id number] 07/29 E Insurance:MEDICAL BEACHYDOB: Community MAIN [facility] [id number], Number: Repository [place] [address]Ytv: [id number] Date:4695-18-82HZ B[address] () [address] [address]ZL: 08/10/2018 Secondary NOT GIVENUNK [place] Insurance:SELF PAY [facility] Number: Effective Repository Date:2018-08-10 07/14/2018 MYLES Modi Primary MYLES Modi [place] [id number] E Insurance:MEDICAL BEACHYDOB: [facility] [id number], Number: Repository [place] [address]Lfh: [id number] Date:0139-81-83QM BOX (HP) [address] [address]AX: 07/14/2018 Secondary NOT GIVENUNK [place] Insurance:SELF PAY [facility] Number: Effective Repository Date:2018-07-14 07/10/2018 MYLES T Primary MYLES Modi [place] [id number] 1 E Insurance:MEDICAL BEACH[place]DOB: [facility] [id number] Repository [id number]: (062) [id number] [phone] () Date:0964-88-75[address] [address]FL: 07/10/2018 Secondary NOT GIVENUNK [place] Insurance:SELF PAY [facility] Number: Effective Repository Date:2018-07-10 11/12/2017 MYLES Modi Primary Insurance:[facility] MYLES Modi [place] [id number] 07/29 E [facility] BEACHYDOB: [facility] MAIN Number: [id number] [id number] Repository [address]Ayb: 330) Date:8959-85-08TK [phone] () [address] [place] [address]DJ: 11/12/2017 Secondary NOT GIVENUNK [place] Insurance:SELF PAY [facility] Number: Effective Repository Date:2017-11-12
== END 2018-07-11 00:38 | disposition home or self-care (01) ==
LOC: ED 07-11 00:31
PROVIDERS: Emergency Provider Emergency Medicine
DX: K08.89 Other specified disorders of teeth and supporting structures (principal); K02.9 Dental caries, unspecified; Z72.0 Tobacco use
CPT/HCPCS: 99283

== ENCOUNTER 2018-07-14 11:19 | Emergency (ER) | payer OTHER, SELFPAY ==
[2018-07-14 11:21] VITALS: BP 151/88; PULSE 85; RESP 16; TEMP 36.2; O2SAT 100; BMI 19.0
--- NOTE | 2018-07-14 11:34 | ED.DCSUM_ITS ---
- ER Visit Summary Date of Service: 07/14/18 Chief Complaint: [] Concern for reaction to clindamycin History of Present Illness: The patient is a 37 M [] for dental pain for weeks he was seen in the emergency department recently, started on clindamycin due to allergy to penicillin Take clindamycin for a few days and believes it made him sick with nonspecific sense of skin changes, GI issues so he stopped the clindamycin a few days ago and all the symptoms went away, his dental pain is well controlled with Naprosyn and he has had no fever no facial swelling no drainage, he is not follow-up with a dentist as instructed, denies other complaints Physical Examination: [] 151/88 afebrile General, no distress resting comfortably HEENT is generally unremarkable kept he does have cavities to the right upper mouth other diffuse dental decay, there is no abscess no swelling anywhere gingival gumline is normal no drainage no odor opening closing the mouth is normal tongue is flat no signs of dental abscess infection or other acute gross abnormalities, airway is entirely normal The neck is supple no adenopathy Cardiovascular, regular rate and rhythm Lungs, clear bilateral Abdomen, soft nontender Extremities, no clubbing cyanosis or edema Neurologic, awake alert answering questions appropriately moving all 4 extremities Patient stop the clindamycin his complaints from that have resolved his dental complaints also have resolved I explained to him I am not sure if these are really related to clindamycin or other conditions he believes he still requires antibiotics I explained to him he might want to consider just taking and continue the Naprosyn until he seen by dental services as to his insistence for the antibiotics he is given azithromycin Z-Drew which have asked him to hold for a few days follow-up with dental services and return for change in symptoms, I further explained to him that his dental problem will not go away until he sees a dentist Test Results: [] Emergency Department Course and Treatment: [] Treatment Plan: [] Disposition: [] Home stable Impression: [] Dental pain, dental decay This note was generated with [employer] dictation software. It may contain incorrect words, spelling, and punctuation that were not noted in review of the chart prior to signing ED Disposition - Plan for ED Patient: Chief Complaint: Dental Referrals: Care Physician,No Primary [Primary Care Provider] -
--- NOTE | 2018-07-14 11:34 | ED.DEP ---
ED Disposition - Plan for ED Patient: Chief Complaint: Dental Instructions: ED Tooth Pain, ED Cavity Dental Prescriptions: Azithromycin [Zithromax Z-Drew] 250 mg PO UD #1 box Referrals: Care Physician,No Primary [Primary Care Provider] -
--- OUTSIDE RECORDS SUMMARY | 2018-10-15 20:47 | XMS RPT_ITS ---
:1980 Author Organization OHIP Support Name Relationship Address Phone [employer] Unavailable [address] + [address] [place] [address] SHERRI, MARQUIS Unavailable [address] + [place] [address] [employer] Unavailable [address] + [address] [place] [address] SHERRI, MARQUIS Unavailable [address] + [place] [address] [employer] Unavailable [address] + [address] [place] [address] SHERRI, MARQUIS Unavailable [address] + [place] [address] [employer] Unavailable [address] + [address] [place] [address] SHERRI, MARQUIS Unavailable [address] + [place] [address] [employer] Unavailable [address] + [address] [place] [address] SHERRI, MARQUIS Unavailable [address] + [place] [address] [employer] Unavailable [address] + [address] [place] [address] SHERRI, MARQUIS Unavailable [address] + [place] [address] [employer] Unavailable [address] + [address] [place] [address] SHERRI, MARQUIS Unavailable [address] + [place] [address] [employer] Unavailable [address] + [address] [place] [address] MARQUIS POLANCO Unavailable [address] + [place] [address] [employer] Unavailable [address] + [address] [place] [address] MARQUIS POLANCO Unavailable [address] + [place] [address] Care Team Providers Name Role Phone Primay Care Physicia, No Primary Care Unavailable Mark Lux Attending Unavailable Primay Care Physicia, No Primary Care Unavailable Lela Wild Attending Unavailable Primay Care Physicia, No Primary Care Unavailable Thomas, Rainer Admitting Unavailable Taryn, Heron Consulting Unavailable Kittoe, Christiano Attending Unavailable Thomas, Rainer Attending Unavailable Primay Care Physicia, No [...] Primary Care Unavailable Brian Dorado Attending Unavailable Primay Care Physicia, No Primary Care Unavailable Tyree Dover Attending Unavailable PROBLEMS PROBLEMS No Problem Records FoundPROCEDURES PROCEDURES No Procedure Records FoundRESULTS RESULTS EMERGENCY DEPARTMENT Observed: 08/17/2018 Status: F Source: [place] SUMMARY 3:51 PM [facility] REPOSITORY [facility] Medical Records Department [address] [place] [address] Emergency Department Summary 08/17/18 1547 MR#: [id number] Acct: [id number] Name: MYLES POLANCO Rep #: [id number] : 1980 37 From: Brian Dorado MD [...] and vomiting This note was generated with [employer] dictation software. It may contain incorrect words, [...] problems, contact your Primary Care Provider. Call [facility] ([phone]) or report to the closest Emergency Room. Call 911 if necessary. 08/17/18 1551 <Electronically signed by Brian Dorado MD> Date Brian Dorado MD Cosigner Signature (If Indicated): Date CC: No Primary Care Physician; Heron Velasco MD EMERGENCY DEPARTMENT Observed: 08/14/2018 Status: F Source: [place] SUMMARY 3:18 PM [facility] REPOSITORY [facility] Medical Records Department [address] [place] [address] Emergency Department Summary 08/14/18 1454 MR#: [id number] Acct: [id number] Name: MYLES POLANCO Rep #: [id number] : 1980 37 From: Tyree Dover MD [...] post surgery This note was generated with [employer] dictation software. It may contain incorrect words, [...] your Primary Care Provider. Call [facility] ([phone]) or report to the closest Emergency Room. Call 911 if necessary. 08/14/18 1518 <Electronically signed by Tyree Dover MD> Date Tyree Dover MD Cosigner Signature (If Indicated): Date CC: No Primary Care Physician 12 LEAD ELECTROCARDIOGRAM Observed: 08/13/2018 Status: F Source: [place] 4:16 PM [facility] REPOSITORY [facility] Cardiovascular Services [address] [place] [address] 12 Lead EKG 08/11/18 0504 MR#: [id number] Acct: [id number] Name: MYLES POLANCO Rep #: [id number] : 1980 37 From: Rainer Kee MD [...] Normal ECG Confirmed by VIDHYA BUTT, RAINER ([id number]), commercial production editor LAWRENCE HAGEN ([id number]) on 08/13/2018 4:16:42 PM Referred By: DAVID Confirmed By:RAINER KEE MD 08/13/18 1616 Date Rainer Kee MD CC: Karen Peterson MD; No Primary Care Physician; Christiano Singh MD Signed PROGRESS Observed: 08/12/2018 Status: COMPLETED Source: [place] 7:07 PM [facility] REPOSITORY O ID: [id number] Author: Heron Velasco Service: (none) Author Type: Physician Type: Progress Notes Filed: 08/12/2018 7:10 PM Note Text: OPERATIVE NOTATION FOR [facility] SURGICAL PROCEDURE. August 11, 2018 Myles Polanco 1980 [id number] male PROCEDURE: EGD WITH BIOPSY - 04706-483 SURGEON: Hawk Velasco M.D. FACS LOCATION DIRECTOR: None DEPT: WQ PROVIDER: [id number] Velasco MD POS: [id number]=[id number] DIAGNOSIS: (R11.2) Nausea and vomiting, intractability of vomiting not specified, unspecified vomiting type (primary encounter diagnosis) ASA CLASS: 2 - mild FINDINGS: COMPLICATIONS: None PMHx - PAST MEDICAL HISTORY Diagnosis Date - NEGATIVE MEDICAL HISTORY COMORBIDITIES - None Post Op Occurrences - None Wound Classification - Clean Contaminated Operative note dictated in the [facility] dictation system. Heron Velasco MD DISCHARGE SUMMARY Observed: 08/12/2018 Status: F Source: [place] 9:22 AM [facility] REPOSITORY [facility] Medical Records Department [address] [place] [address] Discharge Summary 08/12/18 0919 MR#: [id number] Acct: [id number] Name: MYLES POLANCO Rep #: [id number] : 1980 37 From: Christiano Singh MD PCP: Care Physician, No Primary Status: ADM BARRY Y Location: [place] [address] Discharge Date and Diagnosis - Problem List [...] applicable Code Visit OBSV E AND M: 00221 Observation care discharge 08/12/18921 <Electronically signed by Christiano Singh MD> Date Christiano Singh MD Cosigner Signature (if applicable): Date CC: No Primary Care Physician; Christiano Singh MD Signed DISCHARGE INSTRUCTION Observed: 08/12/2018 Status: F Source: [place] 9:19 AM [facility] REPOSITORY [facility] Medical Records Department [address] [place] [address] Instructions for Home/Discharge Instructions 08/12/18917 MR#: [id number] Acct: [id number] Name: MYLES POLANCO Rep #: [id number] : 1980 37 From: Christiano Singh MD [...] F Source: [place] AND/OR ERECT 12:00 AM [facility] REPOSITORY [facility] Imaging Services [address] [place] [address] Abd Inc Decub and/or Erect MR#: [id number] Acct: [id number] Name: MYLES POLANCO T Rep #: [id number] : 1980 M 37 From: Johnnie Rolle PCP: Care Physician, No Primary Status: ADM BARRY Study: Abd Inc Decub and/or Erect Date of Exam: 08/12/18 Exam# [id number] Ordering Dr: Heron Velasco MD STUDY: X-RAY [...] No Primary Care Physician; Heron Velasco MD Aircraft Dispatcher: Signed ABD INC DECUB Observed: 08/11/2018 Status: F Source: [place] AND/OR ERECT 11:37 AM [facility] REPOSITORY [facility] Imaging Services [address] [place] [address] Abd Inc Decub and/or Erect MR#: [id number] Acct: [id number] Name: MYLES POLANCO Rep #: [id number] : 1980 M 37 From: Derrick Weems MD PCP: Care Physician, No Primary Status: ADM BARRY Study: Abd Inc Decub and/or Erect Date of Exam: 08/11/18 Exam# [id number] Ordering Dr: Heron Velasco MD STUDY: X-RAY [...] No Primary Care Physician; Heron Velasco MD Aircraft Dispatcher: Signed OPERATIVE REPORT - Observed: 08/11/2018 Status: F Source: [place] ENDOSCOPY 11:12 AM [facility] REPOSITORY [facility] Medical Records Department [address] [place] [address] Operative Report - Endoscopy MR#: [id number] Acct: [id number] Name: MYLES POLANCO Rep #: [id number] : 1980 37 From: Heron Velasco MD [...] present medications. Procedure Code(s): --- Professional --- 87248, Esophagogastroduodenoscopy, flexible, transoral; with biopsy, single or multiple CPT copyright 2017 [employer]. All rights reserved. The codes documented in this report are preliminary and upon electroslag welding machine operator review may be revised to meet current compliance requirements. Heron Velasco MD 08/11/2018 11:12:40 AM This report has been signed electronically. Number of Addenda: 0 Note Initiated On: 08/11/2018 10:26 AM 08/11/18 1112 Date Heron Velasco MD Cosigner Signature: Date (if indicated) CC: No Primary Care Physician; Christiano Singh MD; Heron Velasco MD Date Dictated: 08/11/18 1026 Date Transcribed: Aircraft Dispatcher: NEVILLE Signed IMMUNOHISTOCHEMISTRY Observed: 08/11/2018 Status: F Source: [place] 10:45 AM [facility] REPOSITORY Patient: MYLES POLANCO : 1980 (37/M) Acct Num: [id number] Phys: Christiano Singh MD Unit Num: [id number] Loc: MS3 [id number] Specimen: [id number] Received: 08/11/18 - 6775 Spec Type: IMMUNO TISSUES 1 TISSUES: A. Stomach, NOS SPECIMEN INFORMATION: Tissue Source: A - Antrum biopsy, B - Distal esophagus biopsy Clinical Info: Nausea and vomiting coffee ground emesis; LUQ pain Specimen Number: [id number] A AND B CPT code: 56144 x2 METHODOLOGY: Deparaffinized sections of prefer/formalin-fixed tissue [...] developed and their performance characteristics determined by [facility]. They may not have been cleared or approved by the U.S. Food and Drug Administration. The FDA has determined that such clearance or approval is not necessary. INTERPRETATION: A. Antrum, biopsy: Negative for Helicobacter pylori organisms. B. Distal esophagus, biopsy: No evidence of dysplasia. AM:[place] 08/13/18 PHYSICIAN AND INSTITUTION [place] [address] Signed Dillon Wang DO 08/13/18 <signature on file> Performed By: #### PIMM #### [facility] [address] [place] [address]. [place], [address] CONSULTATION Observed: 08/11/2018 Status: F Source: [place] 10:37 AM [facility] REPOSITORY [facility] Medical Records Department [address] [place] [address] Consultation 08/11/18 1033 MR#: [id number] Acct: [id number] Name: MYLES POLANCO Rep #: [id number] : 1980 37 From: Heron Velasco MD PCP: Care Physician, No Primary Status: ADM BARRY Y Location: [place] [address] Reason for Consult Date of Consultation: 08/11/18 [...] this episode. the patient presented to [facility] with these above findings. Due to [...] 08/11/2018 Status: F Source: [place] 5:02 AM [facility] REPOSITORY TYPE CODE TESTS RESULT OUT OF [...] Lymph 2.13 Performed By: #### L100.0100 #### [facility] [address] [place], [address] BASIC METABOLIC Collected: 08/11/2018 Status: F Source: [place] PROFILE (BMP) 5:02 AM [facility] REPOSITORY TYPE CODE TESTS RESULT OUT OF [...] GAP 6 Performed By: #### L500.2500 #### [facility] [place], [address] CNOP Observed: 08/11/2018 Status: COMPLETED Source: [place] 12:00 AM [facility] REPOSITORY Operative Note (Enc) (GENSWS) Progress Notes: Heron Velasco MD 08/12/2018 7:10 PM Signed OPERATIVE NOTATION FOR [facility] SURGICAL PROCEDURE. August 11, 2018 Myles Polanco 1980 [id number] male PROCEDURE: EGD WITH BIOPSY - 63708-042 SURGEON: Hawk Velasco M.D. FACS LOCATION DIRECTOR: None DEPT: JOSSELIN PROVIDER: [id number]=BguunqmHeron Velasco MD POS: [id number]=[id number] DIAGNOSIS: (R11.2) Nausea and vomiting, intractability of vomiting not specified, unspecified vomiting type (primary encounter diagnosis) ASA CLASS: 2 - mild FINDINGS: COMPLICATIONS: None PMHx - PAST MEDICAL HISTORY Diagnosis Date - NEGATIVE MEDICAL HISTORY COMORBIDITIES - None Post Op Occurrences - None Wound Classification - Clean Contaminated Operative note dictated in the [facility] dictation system. Heron Velasco MD Encounter Status:Closed by HERON VELASCO MD on 08/12/18 GASTRIC BIOPSY Observed: 08/11/2018 Status: F Source: [place] 12:00 AM [facility] REPOSITORY Patient: MYLES POLANCO : 1980 (37/M) Acct Num: [id number] Phys: Francisco BUTT,Christiano Unit Num: [id number] Loc: MS3 [id number] Specimen: [id number] Received: 08/11/18 - 1334 Spec [...] is totally submitted in one cassette. / SUNG:[place] 08/11/18 TC:4 CPT: 85962 x3 HEADER OPERATION: EGD ([facility]) PRE-OP DIAGNOSIS: Nausea and vomiting coffee ground [...] on file> Performed By: #### PGASB #### [facility] [address] [place], [address] HISTORY AND PHYSICAL Observed: 08/10/2018 Status: F Source: [place] EXAM 11:57 PM [facility] REPOSITORY [facility] Medical Records Department [address] [place] [address] History and Physical 08/10/18 2348 MR#: [id number] Acct: [id number] Name: MYLES POLANCO Rep #: [id number] : 1980 37 From: Rainer Thomas MD [...] prophylaxis Code Visit OBSV E AND M: 20118 Initial observation care L2 08/10/18 2158 <Electronically signed by Rainer Thomas MD> Date Rainer Thomas MD Cosigner Signature: Date (if applicable) CC: No Primary Care Physician; Rainer Thomas MD Signed EMERGENCY DEPARTMENT Observed: 08/10/2018 Status: F Source: [place] SUMMARY 11:50 PM [facility] REPOSITORY [facility] Medical Records Department [address] [place] [address] Emergency Department Summary 08/10/18 2151 MR#: [id number] Acct: [id number] Name: MYLES POLANCO Rep #: [id number] : 1980 37 From: Alexsandra Christopher MD [...] GI bleed This note was generated with [employer] dictation software. It may contain incorrect words, [...] your Primary Care Provider. Call [facility] ([phone]) or report to the closest Emergency Room. Call 911 if necessary. 08/10/18 7250 <Electronically signed by Alexsandra Christopher MD> Date Alexsandra Christopher MD Cosigner Signature (If Indicated): Date CC: No Primary Care Physician ABDOMEN SINGLE VIEW Observed: 08/10/2018 Status: F Source: [place] (PORTABLE) 9:50 PM [facility] REPOSITORY [facility] Imaging Services [employer] [place] [address] Abdomen Single View (Portable) MR#: [id number] Acct: [id number] Name: MYLES POLANCO Rep #: [id number] : 1980 M 37 From: Sam Reveles MD PCP: Care Physician, No Primary Status: REG ER Study: Abdomen Single View (Portable) Date of Exam: 08/10/18 Exam# [id number] Ordering Dr: Alexsandra Christopher MD STUDY: X-RAY [...] No Primary Care Physician; Alexsandra Christopher MD Aircraft Dispatcher: Signed BASIC METABOLIC Collected: 08/10/2018 Status: F Source: [place] PROFILE (BMP) 9:00 PM [facility] REPOSITORY TYPE CODE TESTS RESULT OUT OF [...] Performed By: #### L500.2500, L500.3400, L501.2450 #### [facility] [address] [place], [address] LIVER PROFILE Collected: 08/10/2018 Status: F Source: [place] 9:00 [facility] REPOSITORY TYPE CODE TESTS RESULT OUT OF [...] Performed By: #### L500.2500, L500.3400, L501.2450 #### [facility] [address] [place], [place], [address] LIPASE Collected: 08/10/2018 Status: F Source: [place] 9:00 PM [facility] REPOSITORY TYPE CODE TESTS RESULT OUT OF RANGE REFERENCE UNITS LAB L501.2450 73-393 U/L Normal LIPASE 102 Performed By: #### L500.2500, L500.3400, L501.2450 #### [facility] [address] [facility] [address] [place], [place], [address] CBC W/DIFF, AUTOMATED Collected: 08/10/2018 Status: F Source: [place] 9:00 PM [facility] REPOSITORY TYPE CODE TESTS RESULT OUT OF [...] Lymph 1.91 Performed By: #### L100.0100 #### [facility] [address] [place], [address] EMERGENCY DEPARTMENT Observed: 07/15/2018 Status: F Source: [place] SUMMARY 11:37 PM [facility] REPOSITORY [facility] Medical Records Department [address] [place] [address] Emergency Department Summary 07/14/18 1131 MR#: [id number] Acct: [id number] Name: MYLES POLANCO Rep #: [id number] : 1980 37 From: Lela Wild MD [...] dental decay This note was generated with [employer] dictation software. It may contain incorrect words, [...] problems, contact your Primary Care Provider. Call [facility] ([phone]) or report to the closest Emergency Room. Call 911 if necessary. 07/15/18 2337 <Electronically signed by Lela Wild MD> Date Lela Wild MD Cosigner Signature (If Indicated): Date CC: No Primary Care Physician DISCHARGE INSTRUCTION Observed: 07/14/2018 Status: F Source: [place] 11:35 AM [facility] REPOSITORY [facility] Medical Records Department [address] [place] [address] Discharge Instruction 07/14/18 1134 MR#: [id number] Acct: [id number] Name: MYLES POLANCO Rep #: [id number] : 1980 37 From: Lela Wild MD [...] your Primary Care Provider. Call [facility] ([phone]) or report to the closest Emergency Room. Call 911 if necessary. 07/14/18 1135 <Electronically signed by Lela Wild MD> Date Lela Wild MD Cosigner Signature (If Indicated): Date CC: No Primary Care Physician DISCHARGE INSTRUCTION Observed: 07/11/2018 Status: F Source: [place] 12:21 AM [facility] REPOSITORY [facility] Medical Records Department [address] [place] [address] Discharge Instruction 07/11/18 0019 MR#: [id number] Acct: [id number] Name: MYLES POLANCO Rep #: [id number] : 1980 37 From: Mark Lux MD [...] your Primary Care Provider. Call [facility] ([phone]) or report to the closest Emergency Room. Call 911 if necessary. 07/11/18 0021 <Electronically signed by Mark Lux MD> Date Mark Jose J MD Cosigner Signature (If Indicated): Date CC: No Primary Care Physician EMERGENCY DEPARTMENT Observed: 07/11/2018 Status: F Source: [place] SUMMARY 12:19 AM [facility] REPOSITORY [facility] Medical Records Department [address] [place] [address] Emergency Department Summary 07/11/18 0017 MR#: [id number] Acct: [id number] Name: MYLES POLANCO Rep #: [id number] : 1980 37 From: Mark Lux MD [...] Impression: Odontalgia This note was generated with [employer] dictation software. It may contain incorrect words, [...] your Primary Care Provider. Call [facility] ([phone]) or report to the closest Emergency Room. Call 911 if necessary. 07/11/18 0019 <Electronically signed by Mark Lux MD> Date Mark Lux MD Cosigner Signature (If Indicated): Date CC: No Primary Care Physician PROGRESS Observed: 05/11/2018 Status: COMPLETED Source: [place] 1:37 PM [facility] REPOSITORY HNO ID: [id number] Author: Gerson Miller Service: (none) Author Type: [...] MD CNOV Observed: 05/11/2018 Status: COMPLETED Source: [place] 1:30 PM [facility] REPOSITORY Office Visit (WSTR) MYLES POLANCO ([id number]) 1980 M Date Time Provider Department 05/11/18 1:30 PM GERSON MILLER [facility] During your visit today, we recorded [...] As Of Date: 05/11/2018 (None) Letter Text [place] Department of Urgent Care [address] [place], [place] [address] 05/11/2018 Myles Modi Sherri CCF# [id number] 07/29 [place] [address] TO WHOM IT MAY CONCERN: This is to confirm that Myles Modi Sherri had an appointment and was seen at the [facility] in the Department of Urgent Care by Gerson Miller MD on 05/11/2018 for illness and should be excused from work today. Sincerely, Gerson Miller MD Encounter Status:Closed by GERSON MILLER MD on 05/11/18 EMERGENCY DEPARTMENT Observed: 11/12/2017 Status: F Source: [place] SUMMARY 11:48 PM [facility] REPOSITORY [facility] Medical Records Department [address] [place] [address] Emergency Department Summary 11/12/17 2303 MR#: [id number] Acct: [id number] Name: MYLES POLANCO Rep #: [id number] : 1980 36 From: Tyree Dover MD [...] left thumb This note was generated with [employer] dictation software. It may contain incorrect words, [...] your Primary Care Provider. Call [facility] ([phone]) or report to the closest Emergency Room. Call 911 if necessary. 11/12/17 4542 <Electronically signed by Tyree Dover MD> Date Tyree Lizama Signature (If Indicated): Date CC: No Primary Care Physician ALLERGIES ALLERGIES DATE TYPE / CODE NAME / CODE REACTION SEVERITY SOURCE 08/17/2018 Drug Penicillins/F0 Rash Unknown [facility] Allergy/4160 [id number]([place] 7970602(SNOMED M) Repository CT) 08/17/2018 Drug bee venom Rash Unknown [facility] Allergy/4160 protein ([place] [address](OMED bee)/[id number] Repository CT) 5(RXNORM) 08/17/2018 Drug clindamycin/F0 Rash Unknown [facility] Allergy/4160 69370700([place] [address](SNOMED M) Repository CT) ENCOUNTERS ENCOUNTERS ADMIT/DISCHARGE ACCOUNT ADMITTING ENCOUNTER LOCATION SOURCE NUMBER CLASS 08/17/2018/08/17/19 [id number] Emergency [address] ing:ED Repository 08/14/2018/08/14/19 [id number] Emergency [address] ing:ED Repository 08/10/2018/08/12/19 [id number] Rainer Thomas Ambulatory [address] ing:IV1Ndpk: Repository EQ691Uiu: 1 08/10/2018 [id number] Rainer Thomas Ambulatory BMSBuilding:Cherie Mohan MS.[facility] Repository 08/10/2018 [id number] Rainer Thomas Ambulatory BMSBuilding:Cherie Mohan MS.[facility] Repository 08/10/2018 [id number] Ambulatory BMSBuilding:Cherie Mohan MS.[facility] Repository 07/14/2018/07/14/20 [id number] Emergency [address] ing:ED Repository 07/10/2018/07/11/20 [id number] Emergency [address] ing:ED Repository 05/11/2018/05/12/20 [id number] Ambulatory [address] Repository 11/12/2017/11/13/19 [id number] Emergency [address] ing:ED Repository PAYERS PAYERS ENCOUNTER GUARANTOR PAYER SUBSCRIBER SOURCE 08/17/2018 MYLES Modi Primary MYLES Mohan [id number] 1/2 E Insurance:MEDICAL BEACHYDOB: [facility] [id number], Number: [place]ository [place] [id number]: [id number] Date:1789-52-55YE BOX (HP) [address], [place] [address]SL: 08/17/2018 Secondary NOT GIVENUNK [place] Insurance:SELF PAY [facility] Number: Effective Repository Date:2018-08-17 08/14/2018 MYLES T Primary MYLES Mohan [id number] 12 E Insurance:MEDICAL BEACHYDOB: [facility] [id number], Number: [place] [address]Ypg: [id number] Date:3404-79-48XZ BOX () [address], [place] [address]HY: 08/14/2018 Secondary NOT GIVENUNK [place] Insurance:SELF PAY [facility] Number: Effective Repository Date:2018-08-14 08/10/2018 MYLES T Primary MYLES Mohan [id number] 1/2 E Insurance:MEDICAL BEACHYDOB: [facility] [id number], Number: [place]ository [place] [address]Cuk: [id number] Date:6869-26-64KO BOX () [address], [place] [address]PX: 08/10/2018 Secondary NOT GIVENUNK [place] Insurance:SELF PAY [facility] Number: Effective Repository Date:2018-08-10 08/10/2018 MYLES T Primary MYLES Mohan [id number] 1/2 E Insurance:MEDICAL BEACHYDOB: Community [facility] [id number], Number: Repository [place] [address]Dcb: [id number] Date:2124-69-87AF BOX (HP) [address], [place] [address]NU: 08/10/2018 Secondary NOT GIVENUNK [place] Insurance:SELF PAY [facility] Number: Effective Repository Date:2018-08-10 08/10/2018 MYLES Modi Primary MYLES Modi [place] [id number] 07/29 E Insurance:MEDICAL BEACHYDOB: Community MAIN [facility] [id number], Number: [place]ository [place] [address]Vqo: [id number] Date:3804-32-83MY BOX () [address], [place] [address]DL: 08/10/2018 Secondary NOT GIVENUNK Marques Insurance:SELF PAY [facility] Number: Effective Repository Date:2018-08-10 08/10/2018 MYLES Primary MYLES Modi Marques [id number] 07/29 E Insurance:MEDICAL BEACHYDOB: Community MAIN [facility] [id number], Number: Repository [place] [address]Emu: [id number] Date:[id number] () [address], [place] [address]NK: 08/10/2018 Secondary NOT GIVENUNK Marques Insurance:SELF PAY [facility] Number: Effective Repository Date:2018-08-10 07/14/2018 MYLES Modi Primary MYLES Modi [place] [id number] Insurance:MEDICAL BEACHYDOB: Community [facility] [id number], Number: [place]ository [place] [address]Wtd: [id number] Date:8615-30-14LH [address] ([address]) [address], [place] [address]JW: 07/14/2018 Secondary NOT GIVENUNK Marques Insurance:SELF PAY [facility] Number: Effective Repository Date:2018-07-14 07/10/2018 MYLES T Primary MYLES Modi [place] [id number] Insurance:MEDICAL BEACHYDOB: Community MAIN [facility] [id number] Number: Repository [id number]: [phone] [id number] [phone] Date:[id number], [place] [address]EL: 07/10/2018 Secondary NOT GIVENUNK Marques Insurance:SELF PAY [facility] Number: Effective Repository Date:2018-07-10 11/12/2017 MYLES Modi Primary Insurance:[facility] MYLES Modi Marques [id number] 07/[facility] [place]D[facility] MAIN Number: [id number] [place], [place] [id number] Repository [address]Chm: [phone]) Date:[phone] () [address] [place] [address]CD: 11/12/2017 Secondary NOT GIVENUNK [place] Insurance:SELF PAY [facility] Number: Effective Repository Date:2017-11-12
== END 2018-07-14 12:05 | disposition home or self-care (01) ==
LOC: ED 11:40
PROVIDERS: Emergency Provider Emergency Medicine
DX: K08.89 Other specified disorders of teeth and supporting structures (principal); K02.9 Dental caries, unspecified; Z88.0 Allergy status to penicillin
CPT/HCPCS: 99282

== ENCOUNTER 2018-08-10 20:06 | Observation (INO) | payer OTHER, SELFPAY ==
[2018-08-10 20:07] VITALS: BP 156/96; PULSE 104; RESP 18; TEMP 36.3; O2SAT 99; BMI 18.1
--- NOTE | 2018-08-10 21:53 | ED.DCSUM_ITS ---
- ER Visit Summary Date of Service: 08/10/18 Chief Complaint: Vomiting History of Present Illness: The patient is a 37 M presenting with vomiting since Friday. He states he has had 2-3 episodes of vomiting today. He denies diarrhea. He states he has been constipated. He complains of diffuse abdominal pain. He denies fever. He states he vomited black stuff today, denies bright red blood. Denies other complaints. Physical Examination: Vitals are stable. Heart rate 104. Patient is afebrile. Alert no acute distress. HEENT exam dry mucous membranes Neck is supple. Lungs are clear and equal bilaterally. Heart is regular rate and tachycardic Abdomen is soft diffuse tenderness with no rebound or guarding Extremities are unremarkable. Skin is warm and dry. Remainder of exam is unremarkable. Emergency Department Course and Treatment: Patient given IV fluids, morphine, Zofran. CBC, chemistries unremarkable other than BUN 22, creatinine 1.34. AST 48, lipase is 102. Due to his complaint of black emesis, NG tube was placed. Coffee-ground emesis returned. He was given Protonix IV. Discussed with Dr. Thomas for admission. Disposition: Admission Impression: Upper GI bleed This note was generated with [employer] dictation software. It may contain incorrect words, spelling, and punctuation that were not noted in review of the chart prior to signing ED Disposition - Plan for ED Patient: Chief Complaint: Nausea/Vomiting Referrals: Care Physician,No Primary [Primary Care Provider] -
[2018-08-10] MEDS: 0.9% Normal Saline 1,000 ML 1000 ML IV ×2 (22:02)
[2018-08-10] MEDS: Morphine 4 MG/ML Syringe IV (22:02)
[2018-08-10] MEDS: Ondansetron 4 MG/2 ML Vial IV (22:02)
[2018-08-10 22:03] LABS: Absolute Lymphocyte Count 1.91 X10^3/ul (0.83-4.51); Absolute Neutrophil Count 3.6 X10^3/uL (2.0-7.7); Basophil# 0.01 X10^3/uL; Basophil% 0.2 % (0-1); Eosinophils% 1.6 % (0-5); Hematocrit 41.4 % (40-54); Hemoglobin 14.4 g/dl (13.0-16.5); Lymphocyte # 1.91 X10^3/ul (4.0); Mean Corp Hgb Conc 34.8 g/gl (32-36); Mean Corpuscular Hgb 30.3 pg (27.0-32.0); Mean Corpuscular Volume 87.2 fL (80-94); Mean Platelet Vol. 9.3 fl (6.2-12.0); Monocyte# 0.59 X10^3/uL; Monocyte% 9.6 % (0-10); Neutrophil # 3.56 X10^3/uL (2.7-7.7); Neutrophil % 57.6 % (47-70); Platelet Count 197 K/mm3 (150-450); RBC Distribution Width CV 13.1 % (11.6-14.6); RBC Distribution Width SD 41.7 fl (35.1-43.9); Red Blood Count 4.75 M/mm3 (4.6-6.2); White Blood Count 6.2 K/mm3 (4.4-11.0)
[2018-08-10 22:15] LABS: AST(SGOT) 48 U/L (15-37); Alanine Aminotransfer ALT/SGPT 43 U/L (16-61); Albumin, Serum 4.3 g/dL (3.2-5.0); Alkaline Phosphatase 71 U/L (45-117); Anion Gap 10 (5-15); BUN 22 mg/dL (7-18); BUN/Creat Ratio 16.4 RATIO (10-20); Bilirubin, Direct 0.21 mg/dL (0.00-0.30); Calcium,Total 8.4 mg/dL (8.5-10.1); Chloride 103 mmol/L (98-107); Creatinine, Serum 1.34 mg/dL (0.70-1.30); EST Glomerular Filtration Rate 64 mL/min (>60); Est Glom Filt Rate - Afr Amer 77 mL/min (>60); Estimated Creatinine Clearance 64.59 ml/min; Globulin 3.3 g/dL (2.2-4.2); Glucose 98 mg/dL (74-106); Lipase 102 U/L (73-393); Potassium 3.7 mmol/L (3.5-5.1); Protein, Total 7.6 g/dL (6.4-8.2); Sodium Level 139 mmol/L (136-145)
[2018-08-10 22:27] LABS: POSITIVE COUNT NO; POSITIVE DIFFERENTIAL NO; POSITIVE MORPHOLOGY NO
--- NOTE | 2018-08-10 23:00 | RAD_ITS ---
STUDY: X-RAY - ABDOMEN/PELVIS REASON FOR EXAM: Male, 37 years old. Status post nasogastric placement. TECHNIQUE: Single AP view of the abdomen / pelvis. COMPARISON: None. FINDINGS: There is a nasogastric tube with its tip in the region of the gastric fundus. There are nonspecific gaseous bowel loops. The pelvic region is not included on this examination. RAD/Abdomen Single View (Portable) IMPRESSION: Nasogastric tube with the tip in the region of the gastric fundus. Electronically Signed: Sam Reveles MD at 23:15 EST Tel , Service support ,
[2018-08-10] MEDS: Lidocaine 4% 5 ML Ampul 2 ML INHALATION (23:04)
[2018-08-10 23:05] VITALS: BP 113/79; PULSE 95; RESP 18; O2SAT 100
--- NOTE | 2018-08-10 23:19 | ED.RN ---
NG IRRIGATED WITH 80 CC STERILE WATER.
--- NOTE | 2018-08-10 23:53 | HP.PCM_ITS ---
Problem List (1) Hematemesis with nausea Status: Acute (2) Abdominal pain Status: Acute Qualifiers: Abdominal location: epigastric Qualified Code(s): R10.13 - Epigastric pain History of Present Illness Date of Admission: 08/10/18 Chief Complaint: abdominal pain, nausea and vomiting The patient is a 37 year old male patient who presents to the ER with nausea and vomiting. Onset of this began on Friday and has progressed. Today he has vomited more than three times and describes some of the emesis to be dark like coffee grounds. In the ER he has received anti-emetics and has had an NG tube placed. He will be admitted for EGD for possible ulcer vs gastritis. He denies previous history of ulcer. No chest pain or shortness of breath. He is uncomfor table with current NG tube. He will be admitted for observation to general medical floor for further management. Past Medical History Allergies bee venom protein (honey bee) Allergy (Verified 08/10/18 20:07) Rash clindamycin Allergy (Verified 08/10/18 20:07) Rash Penicillins Allergy (Verified 08/10/18 20:07) Rash GETS A FEVER WELL Home Medications: Ambulatory Orders Medication Instructions Recorded Naproxen [Naprosyn] 500 mg PO BID #20 tab 07/11/18 Azithromycin [Zithromax Z-Derw] 250 mg PO UD #1 box 07/14/18 Surgical History: no surgical history Smoking Status: Current every day smoker - *Family History Maternal History Items: No pertinent history Review of Systems Constitutional: Denies: Chills, Fever, Weight Change HEENT: Denies: Head Aches, Sinus Congestion, Sinus Drainage Cardiovascular: Denies: Chest Pain, Palpitations Respiratory: Denies: Cough, Shortness of breath at rest, Sputum production Gastrointestinal: Reports: Abdominal Pain, Dyspepsia, Hematemesis, Nausea, Vomiting Genitourinary: Denies: Dysuria Musculoskeletal: Denies: Joint Pain, Joint Tenderness Skin: Denies: Rash, Wounds Neurological: Denies: Numbness, Tingling, Focal weakness Psychiatric: Denies: Anxiety, Depression, Homicidal Ideations, Suicidal Ideations Hematologic/ Lymphatic: Denies: Easy Bruising, Easy Bleeding VTE Information - Inpt Only VTE Present on Admission: No VTE Mechan Device Prophylaxis: SCD's VTE Pharm Prophylaxis ordered?: No Reason prophylaxis not ordered:: Medical Contraindication Patient Problems: Active and Suspected Problems Hematemesis with nausea (Acute) Abdominal pain (Acute) - Physical Exam General: Alert, Oriented x3, Cooperative HEENT: Atraumatic, Normocephalic Neck: Supple Lungs: Clear to auscultation, Normal air movement, No rhonchi, No wheeze, No rales Cardiovascular: Regular rate, Regular Rhythm, Normal S1, Normal S2, No murmurs Abdomen: Non-Distended, Hypoactive Bowel Sounds, Tender - epigastrium, No hernias noted Extremities: No edema Skin: No rashes Musculoskeletal: No Tenderness to Palpation of Joints or Extremities Neurological: Neuro grossly intact Psych/Mental Status: Normal Affect, Appropriate Vital Signs Temp Pulse Resp BP Pulse Ox 97.4 F L 95 18 113/79 100 08/10/18 20:07 08/10/18 23:05 08/10/18 23:05 08/10/18 23:05 08/10/18 23:05 Oxygen Delivery Method Room Air Weight: 133 lb 6.075 oz Body Mass Index (BMI) 18.1 Laboratory Tests Past 24 Hrs 08/10/18 08/10/18 21:00 21:00 WBC 6.2 RBC 4.75 Hgb 14.4 Hct 41.4 MCV 87.2 MCH 30.3 MCHC 34.8 RDW 13.1 RDW Differential 41.7 Plt Count 197 MPV 9.3 Immature Gran % (Auto) 0.000 Neut % (Auto) 57.6 Lymph % (Auto) 31.0 [place] % (Auto) 9.6 Eos % (Auto) 1.6 Baso % (Auto) 0.2 Absolute Neuts (auto) 3.6 Absolute Lymphs (auto) 1.91 Total Counted Not Reportable Sodium 139 Potassium 3.7 Chloride 103 Carbon Dioxide 26.0 Anion Gap 10 BUN 22 H Creatinine 1.34 H Estim Creat Clear Calc 64.59 Est GFR (MDRD) Af Amer 77 Est GFR (MDRD) Non-Af 64 BUN/Creatinine Ratio 16.4 Glucose 98 Calcium 8.4 L Total Bilirubin 0.80 Direct Bilirubin 0.21 AST 48 H ALT 43 Alkaline Phosphatase 71 Total Protein 7.6 Albumin 4.3 Globulin 3.3 Lipase 102 Assessment/Plan All Active Problems Hematemesis with nausea (Acute) Abdominal pain (Acute) Plan 1. Nausea and vomiting with hematemesis- admit to general medical floor. Protonix 40mg IV BID, Consult Dr Centeno for EGD, continue NG to low intermittent suction. phenergan 12.5mg IVq 6hrs, zofran 8mg q 8hrs prn, morphine 4 mg IV q 2 hrs prn pain. NPO, IV D51/2 normal saline with 20meq KCl at 125 cc/hr. CBC, BMP in am, NPO. 2. SCDs for DVT prophylaxis Code Visit OBSV E&M: 11946 Initial observation care L2
[2018-08-11] VITALS (8 sets, daily range): BP systolic 103–115; BP diastolic 62–74; PULSE 61–87; RESP 16–20; TEMP 36.1–37; O2SAT 94–100; BMI 18.1
--- NOTE | 2018-08-11 | GASB_PTH ---
PATIENT: NETTIE MULLIGAN LOC: [facility]3 U#:[id number] AGE/SX: 37/M ROOM: MS305 RE08/10/[address]: Dr. Christiano Singh MD : 1980 BED: 1 DIS: 08/12/2018 SPEC #: [id number] RECD: 08/11/18 13:34 STATUS: SAIRA REQ #: [id number] ANABEL: 08/11/18 00:[address]: Heron Centeno DEPT: SURGICAL PATHOLOGY RECD BY: Ian Hill ENTERED: 08/11/18 13:35 SP TYPE: Gastric Bx OTHR DR: MD Dr. Rainer Edwards MD Dr. Richard Guttman, MD No Primary Care Phys Tissues: A - Gastric mucous membrane B - Esophagus, NOS C - Esophagus, NOS Procedures: Surgery Specimen Level IV Comments: @ Ordering doctor for SUIV edited from to @ by MARCELO at 08/12/18 0755 @ Submitting doctor edited from to @ by ZENYOD at 08/12/18 0755 HEADER OPERATION: EGD ([facility] [place]) PRE-OP DIAGNOSIS: Nausea and vomiting coffee ground emesis, left upper quadrant pain TISSUE SUBMITTED: A - Antrum biopsy for H. pylori and path, B - Distal esophagus biopsy, C - Mid esophagus biopsy MICROSCOPIC DIAGNOSIS A. Gastric antrum, biopsy: Minimal chronic inflammation. See comment. B. 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 Squamous mucosa with no pathologic change. See comment. C. Mid esophagus, biopsy: Fragments of benign squamous mucosa. No evidence of inflammation. AM:[place] 08/12/18 COMMENT A. The results of immunohistochemistry for Helicobacter pylori will be reported separately ([id number]). B. There is no evidence of dysplasia. Immunohistochemistry ([id number]) supports the above diagnosis. Case has been reviewed in consultation with Dr. Ceron who concurs with the above diagnosis. IDC:SJ MICROSCOPIC DESCRIPTION Slides are reviewed. GROSS DESCRIPTION A - Received in fixative is one container labeled with the patient's name and designated antrum biopsy. The specimen consists of one irregular fragment of light doyle soft tissue that measures 0.7 x 0.3 x 0.1 cm. The specimen is totally submitted in one cassette. B - Received in fixative is one container labeled with the patient's name and designated distal esophagus biopsy. The specimen consists of multiple irregular fragments of light doyle soft tissue that in aggregate measure 0.4 x 0.4 x 0.1 cm. The specimen is totally submitted in one cassette. C - Received in fixative is one container labeled with the patient's name and designated mid esophagus biopsy. The specimen consists of multiple irregular fragments of light doyle soft tissue that in aggregate measure 1 x 0.3 x 0.1 cm. The specimen is totally submitted in one cassette. / SJ:rg 08/11/18 TC:4 CPT: 50308 x3
[2018-08-11] MEDS: Morphine 4 MG/ML Syringe IV ×3 (00:09→07:56)
[2018-08-11] MEDS: proMETHazine 25 MG/ML Syringe 12.5 MG IV (02:19)
[2018-08-11 05:55] LABS: Absolute Lymphocyte Count 2.13 X10^3/ul (0.83-4.51); Absolute Neutrophil Count 2.7 X10^3/uL (2.0-7.7); Basophil# 0.02 X10^3/uL; Basophil% 0.4 % (0-1); Eosinophil# 0.25 X10^3/uL; Eosinophils% 4.4 % (0-5); Hematocrit 38.4 % (40-54); Hemoglobin 13.3 g/dl (13.0-16.5); Lymphocyte # 2.13 X10^3/ul (4.0); Lymphocyte % 37.4 % (19-41); Mean Corp Hgb Conc 34.6 g/gl (32-36); Mean Corpuscular Hgb 30.2 pg (27.0-32.0); Mean Corpuscular Volume 87.3 fL (80-94); Mean Platelet Vol. 9.1 fl (6.2-12.0); Monocyte# 0.62 X10^3/uL; Monocyte% 10.9 % (0-10); Neutrophil # 2.66 X10^3/uL (2.7-7.7); Neutrophil % 46.7 % (47-70); Platelet Count 182 K/mm3 (150-450); RBC Distribution Width SD 40.6 fl (35.1-43.9); White Blood Count 5.7 K/mm3 (4.4-11.0)
[2018-08-11 05:56] LABS: POSITIVE COUNT NO; POSITIVE DIFFERENTIAL NO; POSITIVE MORPHOLOGY NO
--- NOTE | 2018-08-11 06:00 | EKG12_ITS ---
Test Reason : AM EKG Blood Pressure : / mmHG Vent. Rate : 071 BPM Atrial Rate : 071 BPM P-R Int : 148 ms QRS Dur : 090 ms QT Int : 404 ms P-R-T Axes : 085 066 072 degrees QTc Int : 439 ms Normal sinus rhythm Normal ECG Confirmed by VIDHYA BUTT, MAEGAN ([id number]), content editor LAWRENCE HAGEN ([id number]) on 08/13/2018 4:16:42 PM Referred By: DAVID Confirmed By:MAEGAN KEE MD
[2018-08-11 06:13] LABS: Anion Gap 6 (5-15); BUN 19 mg/dL (7-18); BUN/Creat Ratio 15.1 RATIO (10-20); Calcium,Total 7.5 mg/dL (8.5-10.1); Chloride 109 mmol/L (98-107); Creatinine, Serum 1.26 mg/dL (0.70-1.30); EST Glomerular Filtration Rate 68 mL/min (>60); Est Glom Filt Rate - Afr Amer 83 mL/min (>60); Estimated Creatinine Clearance 68.69 ml/min; Glucose 106 mg/dL (74-106); Potassium 3.8 mmol/L (3.5-5.1); Sodium Level 141 mmol/L (136-145)
--- NOTE | 2018-08-11 07:34 | PN_ITS ---
Patient Problems: Active and Suspected Problems Hematemesis with nausea (Acute) Abdominal pain (Acute) Subjective: Patient is a 37-year-old gentleman who presented with intractable nausea vomiting associated with hematemesis. Admitted to regular nursing floor and consultation placed to Dr. Byrd for possible endoscopic evaluation Objective: GENERAL: cooperative HEENT: Atraumatic; NG tube in place EYES; Anicteric, Normal Conjunctiva NECK; supple, normal thyroid, no distended JVD. RESPIRATORY: Diminished to auscultation bilaterally, CARDIOVASCULAR: Regular S1 S2, no audible murmurs GI: soft, non-tender, normoactive bowel sounds, : No Renal angle tenderness; EXTREMITIES: No edema, no clubbing, no cyanosis. MUSCULOSKELETAL: No Joint Tenderness; no muscle waisting NEURO: Awake; no lateralizing signs. SKIN: No Rash PSYCH; Normal affect Vitals/I&O's: Vital Signs Temp Pulse Resp BP Pulse Ox 98.5 F 80 20 H 115/72 100 08/11/18 01:33 08/11/18 01:33 08/11/18 01:33 08/11/18 01:33 08/11/18 01:33 Oxygen Delivery Method Room Air Weight: 60.5 kg Body Mass Index (BMI) 18.1 Intake and Output for Last 24 Hours 08/09/18 08/10/18 08/11/18 23:59 23:59 23:59 Intake Total 442 / 442 Output Total 50 / 50 Balance 392 / 392 Laboratory Results 08/10/18 21:00: WBC 6.2, RBC 4.75, Hgb 14.4, Hct 41.4, MCV 87.2, MCH 30.3, MCHC 34.8, RDW 13.1, RDW Differential 41.7, Plt Count 197, MPV 9.3, Immature Gran % (Auto) 0.000, Neut % (Auto) 57.6, Lymph % (Auto) 31.0, [place] % (Auto) 9.6, Eos % (Auto) 1.6, Baso % (Auto) 0.2, Absolute Neuts (auto) 3.6, Absolute Lymphs (auto) 1.91, Total Counted Not Reportable 08/10/18 21:00: Sodium 139, Potassium 3.7, Chloride 103, Carbon Dioxide 26.0, Anion Gap 10, BUN 22 H, Creatinine 1.34 H, Estim Creat Clear Calc 64.59, Est GFR (MDRD) Af Amer 77, Est GFR (MDRD) Non-Af 64, BUN/Creatinine Ratio 16.4, Glucose 98, Calcium 8.4 L, Total Bilirubin 0.80, Direct Bilirubin 0.21, AST 48 H, ALT 43, Alkaline Phosphatase 71, Total Protein 7.6, Albumin 4.3, Globulin 3.3, Lipase 102 08/11/18 05:02: WBC 5.7, RBC 4.40 L, Hgb 13.3, Hct 38.4 L, MCV 87.3, MCH 30.2, MCHC 34.6, RDW 13.0, RDW Differential 40.6, Plt Count 182, MPV 9.1, Immature Gran % (Auto) 0.200, Neut % (Auto) 46.7 L, Lymph % (Auto) 37.4, [place] % (Auto) 10.9 H, Eos % (Auto) 4.4, Baso % (Auto) 0.4, Absolute Neuts (auto) 2.7, Absolute Lymphs (auto) 2.13, Total Counted Not Reportable 08/11/18 05:02: Sodium 141, Potassium 3.8, Chloride 109 H, Carbon Dioxide 26.0, Anion Gap 6, BUN 19 H, Creatinine 1.26, Estim Creat Clear Calc 68.69, Est GFR (MDRD) Af Amer 83, Est GFR (MDRD) Non-Af 68, BUN/Creatinine Ratio 15.1, Glucose 106, Calcium 7.5 L Current Medications Potassium Chloride/Dextrose/Sod Cl (Kcl 20meq In D5.45ns 1000ml) 1,000 mls @ 125 mls/hr IV .Q8H PEDRO LUIS Last Admin: 08/11/18 02:19 Dose: 125 mls/hr Pantoprazole Sodium 40 mg/ (Sodium Chloride) 110 mls @ 330 mls/hr IV Q12 PEDRO LUIS Magnesium Hydroxide (Milk Of Magnesia) 30 ml PO DAILY PRN PRN PRN Reason: Constipation Morphine Sulfate () 4 mg IV Q2H PRN PRN PRN Reason: SEVERE PAIN (6-10/10) Last Admin: 08/11/18 02:19 Dose: 4 mg Ondansetron HCl (Zofran) 8 mg IV Q8H PRN PRN PRN Reason: NAUSEA Promethazine HCl (Phenergan) 12.5 mg IV Q6H PRN PRN PRN Reason: NAUSEA/VOMITING Last Admin: 08/11/18 02:19 Dose: 12.5 mg Sodium Chloride () 5 - 15 ml IV UD PRN PRN Reason: SALINE FLUSH Medical Necessity - Tobacco Use Smoking Status: Current every day smoker Assessment/Plan All Active Problems Hematemesis with nausea (Acute) Abdominal pain (Acute) Patient is a 37-year-old gentleman who presented with intractable nausea vomiting associated with hematemesis. Admitted to regular nursing floor and consultation placed to Dr. Byrd for possible endoscopic evaluation 1. Suspected gastritis: Patient admitted to a regular nursing floor kept n.p.o. overnight started on PPI and consultation placed to Dr. Byrd for possible endoscopic evaluation 2. Acute kidney injury secondary to above patient is on IV fluids with monitoring of electrolyte 3. Tobacco dependence counseled on cessation, offered nicotine patch for tobacco cravings 4. DVT prophylaxis low risk did encourage early ambulation Code Visit OBSV E&M: 68162 Subsequent observation care L3
--- NOTE | 2018-08-11 10:33 | PCM.CONS.GEN ---
Reason for Consult Date of Consultation: 08/11/18 History of Present Illness: The patient is a 37 year old M with a complaint of epigastric pain and nausea. The patient symptoms started approximately 2 days prior to admission. the patient initially felt this was likely the stomach flu. He noted nausea and vomiting. He notes no flatus or bowel movements since Friday. As his symptoms progressed he noted abdominal pain which was more constant in the left upper quadrant. With vomiting, he initially noted just bile and food but later noted a degree of coffee grounds in his vomitus. The patient denies fever or chills. He noted no history of melena prior to this episode. the patient presented to [facility] with these above findings. Due to persistent nausea and vomiting and nasogastric tube was placed. NG aspirate was blood tinged clear fluid without obvious clots or coffee grounds. no additional imaging was performed.laboratory studies were unremarkable. The patient was admitted to the medicine service and I was contacted for upper endoscopy. Past Medical History Allergies bee venom protein (honey bee) Allergy (Verified 08/10/18 20:07) Rash clindamycin Allergy (Verified 08/10/18 20:07) Rash Penicillins Allergy (Verified 08/10/18 20:07) Rash GETS A FEVER WELL Surgical History: no surgical history Smoking Status: Current every day smoker - *Family History Maternal History Items: No pertinent history Review of Systems Constitutional: Reports: Weight Change - 7 pound weight loss over the last few days.. Denies: Chills, Fever HEENT: Denies: Head Aches, Sinus Congestion, Sinus Drainage Cardiovascular: Denies: Chest Pain, Palpitations Respiratory: Denies: Cough, Shortness of breath at rest, Sputum production Gastrointestinal: Reports: Abdominal Pain, Hematemesis, Vomiting. Denies: Nausea Genitourinary: Denies: Dysuria Musculoskeletal: Denies: Joint Pain, Joint Tenderness Skin: Denies: Rash, Wounds Neurological: Denies: Numbness, Tingling, Focal weakness Psychiatric: Denies: Anxiety, Depression, Homicidal Ideations, Suicidal Ideations Hematologic/ Lymphatic: Denies: Easy Bruising, Easy Bleeding Patient Problems: Active and Suspected Problems Hematemesis with nausea (Acute) Abdominal pain (Acute) - Physical Exam General: Alert, Oriented x3, Cooperative HEENT: Atraumatic, PERRLA, EOMI, Normocephalic Neck: Supple, No JVD, Negative Carotid Bruits Lungs: Clear to auscultation, Normal air movement Cardiovascular: Regular rate, No murmurs Abdomen: Bowel Sounds Present, Soft, Tender - mildly so in the left upper quadrant Extremities: No edema, Capillary Refill Less than 3 Seconds Skin: No rashes, No breakdown Musculoskeletal: No Tenderness to Palpation of Joints or Extremities Neurological: Cranial nerves II-XII grossly intact Psych/Mental Status: Normal Affect, Appropriate Vital Signs Temp Pulse Resp BP Pulse Ox 97.8 F 81 18 109/71 100 08/11/18 07:47 08/11/18 07:47 08/11/18 07:47 08/11/18 07:47 08/11/18 07:47 Oxygen Delivery Method Room Air Weight: 60.5 kg Body Mass Index (BMI) 18.1 Intake and Output for Last 24 Hours 08/09/18 08/10/18 08/11/18 23:59 23:59 23:59 Intake Total 442 / 442 Output Total 50 / 50 Balance 392 / 392 Laboratory Tests Past 24 Hrs 08/10/18 08/10/18 08/11/18 21:00 21:00 05:02 WBC 6.2 5.7 RBC 4.75 4.40 L Hgb 14.4 13.3 Hct 41.4 38.4 L MCV 87.2 87.3 MCH 30.3 30.2 MCHC 34.8 34.6 RDW 13.1 13.0 RDW Differential 41.7 40.6 Plt Count 197 182 MPV 9.3 9.1 Immature Gran % (Auto) 0.000 0.200 Neut % (Auto) 57.6 46.7 L Lymph % (Auto) 31.0 37.4 Howell % (Auto) 9.6 10.9 H Eos % (Auto) 1.6 4.4 Baso % (Auto) 0.2 0.4 Absolute Neuts (auto) 3.6 2.7 Absolute Lymphs (auto) 1.91 2.13 Total Counted Not Reportable Not Reportable Sodium 139 Potassium 3.7 Chloride 103 Carbon Dioxide 26.0 Anion Gap 10 BUN 22 H Creatinine 1.34 H Estim Creat Clear Calc 64.59 Est GFR (MDRD) Af Amer 77 Est GFR (MDRD) Non-Af 64 BUN/Creatinine Ratio 16.4 Glucose 98 Calcium 8.4 L Total Bilirubin 0.80 Direct Bilirubin 0.21 AST 48 H ALT 43 Alkaline Phosphatase 71 Total Protein 7.6 Albumin 4.3 Globulin 3.3 Lipase 102 08/11/18 05:02 WBC RBC Hgb Hct MCV MCH MCHC RDW RDW Differential Plt Count MPV Immature Gran % (Auto) Neut % (Auto) Lymph % (Auto) Howell % (Auto) Eos % (Auto) Baso % (Auto) Absolute Neuts (auto) Absolute Lymphs (auto) Total Counted Sodium 141 Potassium 3.8 Chloride 109 H Carbon Dioxide 26.0 Anion Gap 6 BUN 19 H Creatinine 1.26 Estim Creat Clear Calc 68.69 Est GFR (MDRD) Af Amer 83 Est GFR (MDRD) Non-Af 68 BUN/Creatinine Ratio 15.1 Glucose 106 Calcium 7.5 L Total Bilirubin Direct Bilirubin AST ALT Alkaline Phosphatase Total Protein Albumin Globulin Lipase Assessment/Plan All Active Problems Hematemesis with nausea (Acute) Abdominal pain (Acute) nausea and vomiting and obstipation, questionable viral gastroenteritis, now with coffee grounds I plan to perform upper endoscopy. The patient understands the risks, benefits, possible complications and alternatives and consents to endoscopy. If there is no significant findings would likely leave the NG tube out. Would also recommend abdominal multiview to assess bowel gas pattern although no specific obstructive pattern was noted with NG placement x-ray.
--- NOTE | 2018-08-11 10:45 | IMM_PTH ---
PATIENT: NETTIE MULLIGAN LOC: MS3 U#:[id number] AGE/SX: 37/M ROOM: MS305 RE08/10/[address]: Dr. Christiano Singh MD : 1980 BED: 1 DIS: 08/12/2018 SPEC #: [id number] RECD: 08/11/18 15:35 STATUS: SOUT REQ #: [id number] ANABEL: 08/11/18 10:[address]: Heron Centeno DEPT: IMMUNOHISTOCHEMISTRY RECD BY: Lorna Borjas ENTERED: 08/11/18 15:36 SP TYPE: IMMUNO OTHR DR: MD Dr. Rainer Edwards MD No Primary Care Phys Tissues: A - Stomach, NOS Procedures: H Pylori (initial) P53 (initial) Comments: @ Ordering doctor for H.PYLORI edited from to @ by MARCELO at 08/11/18 1536 @ Submitting doctor edited from to @ by ZENYOD at 08/11/18 1536 PHYSICIAN & INSTITUTION [place] [id number] SPECIMEN INFORMATION: Tissue Source: A - Antrum biopsy, B - Distal esophagus biopsy Clinical Info: Nausea and vomiting coffee ground emesis; LUQ pain Specimen Number: [id number] A & B CPT code: 48212 x2 METHODOLOGY: Deparaffinized sections of prefer/formalin-fixed tissue or PAP/DQ stained slides are incubated with monoclonal/polyclonal antibodies/oligonucleotide probes. Localization is made via biotin free immunoperoxidase method. Appropriate controls are performed and reacted as expected. Results on target cell population are indicated in the following table: RESULTS: ANTIBODY / CLONE RESULT Block A H Pylori (polyclonal) negative Block B P53 (DO-7) negative These tests were developed and their performance characteristics determined by [facility]. They may not have been cleared or approved by the U.S. Food and Drug Administration. The FDA has determined that such clearance or approval is not necessary. INTERPRETATION: A. Antrum, biopsy: Negative for Helicobacter pylori organisms. B. Distal esophagus, biopsy: No evidence of dysplasia. AM:neville 08/13/18
--- NOTE | 2018-08-11 11:12 | OP.ENDO_ITS ---
Patient Name: Myles Polanco Procedure Date: 08/11/2018 10:26 AM Date of : 1980 Age: 37 Procedure: Upper GI endoscopy Indications: Hematemesis, Nausea with vomiting Providers: Heron Centeno MD Medicines: Monitored Anesthesia Care Patient Profile: This is a 37 year old male. Refer to note in patient chart for documentation of history and physical. Patient has symptoms. Complications: No immediate complications. Procedure: Pre-Anesthesia Assessment: - Prior to the procedure, a History and Physical was performed, and patient medications and allergies were reviewed. The patient is competent. The risks and benefits of the procedure and the sedation options and risks were discussed with the patient. All questions were answered and informed consent was obtained. Patient identification and proposed procedure were verified by the physician and the nurse in the procedure room. Mental Status Examination: alert and oriented. Airway Examination: normal oropharyngeal airway and neck mobility. Respiratory Examination: clear to auscultation. CV Examination: normal. Prophylactic Antibiotics: The patient does not require prophylactic antibiotics. Prior Anticoagulants: The patient has taken no previous anticoagulant or antiplatelet agents. ASA Grade Assessment: II - A patient with mild systemic disease. After reviewing the risks and benefits, the patient was deemed in satisfactory condition to undergo the procedure. The anesthesia plan was to use moderate sedation / analgesia (conscious sedation). Immediately prior to administration of medications, the patient was re-assessed for adequacy to receive sedatives. The heart rate, respiratory rate, oxygen saturations, blood pressure, adequacy of pulmonary ventilation, and response to care were monitored throughout the procedure. The physical status of the patient was re-assessed after the procedure. After obtaining informed consent, the endoscope was passed under direct vision. Throughout the procedure, the patient's blood pressure, pulse, and oxygen saturations were monitored continuously. The gastroscope was introduced through the mouth, and advanced to the jejunum. The upper GI endoscopy was accomplished without difficulty. The patient tolerated the procedure well. Scope In: 10:57:59 AM Scope Out: 11:04:54 AM Total Procedure Duration Time 0 hours 6 minutes 55 seconds Findings: The examined jejunum was normal. Patchy moderately erythematous mucosa without active bleeding and with no stigmata of bleeding was found in the duodenal bulb. Scattered mild inflammation characterized by erosions, erythema and friability was found in the gastric antrum. Biopsies were taken with a cold forceps for histology. Biopsies were taken with a cold forceps for Helicobacter pylori testing using PyloriTek test. A small hiatal hernia was present. A medium non-bleeding Priscila-Horn tear with stigmata of recent bleeding was found. Non-severe esophagitis with no bleeding was found. Biopsies were taken with a cold forceps for histology. The middle third of the esophagus was normal. Biopsies were taken with a cold forceps for histology. Impression: - Normal examined jejunum. - Erythematous duodenopathy. - Gastritis. Biopsied. - Small hiatal hernia. - Priscila-Horn tear. - Non-severe reflux esophagitis. Biopsied. - Normal middle third of esophagus. Biopsied. Recommendation: - [facility]. - NPO. - Await pathology results. - Continue present medications. Procedure Code(s): --- Professional --- 63221, Esophagogastroduodenoscopy, flexible, transoral; with biopsy, single or multiple CPT copyright 2017 [employer]. All rights reserved. The codes documented in this report are preliminary and upon cardiograph operator review may be revised to meet current compliance requirements. Heron Centeno MD 08/11/2018 11:12:40 AM This report has been signed electronically. Number of Addenda: 0 Note Initiated On: 08/11/2018 10:26 AM
--- NOTE | 2018-08-11 11:36 | RAD_ITS ---
STUDY: X-RAY - ABDOMEN/PELVIS REASON FOR EXAM: Male, 37 years old. Abdominal pain post EGD. TECHNIQUE: AP supine and left lateral decubitus views of the abdomen and pelvis on 4 films. COMPARISON: None. FINDINGS: Normal visualized lung bases. There is a nonspecific pattern of gas in nondistended loops of small bowel and colon, including the rectal vault. Moderate stool also seen within the colon to the mid sigmoid. There is no demonstrated free abdominal air. The visualized liver, spleen and kidneys are grossly normal in size and morphology. Normal soft tissue structures. Degenerative changes suggested in the lumbosacral facet joints. RAD/Abd Inc Decub and/or Erect IMPRESSION: Nonspecific bowel gas pattern, as described. No free gas. Electronically Signed: Ortega Weems MD at 16:20 EST , Service support ,
--- NOTE | 2018-08-11 11:46 | PCA ---
pt off floor
[2018-08-11] MEDS: BENZOCAINE/MENTHOL 1 LOZENGE MUCOUS MEM ×2 (16:31→21:48)
[2018-08-12 03:00] VITALS: BP 102/52; PULSE 65; RESP 16; TEMP 36.6; O2SAT 99
--- NOTE | 2018-08-12 06:00 | RAD_ITS ---
STUDY: X-RAY - ABDOMEN/PELVIS REASON FOR EXAM: Male, 37 years old. Hematemesis with nausea and vomiting. TECHNIQUE: AP supine abdomen. COMPARISON: 08/11/2018. FINDINGS: Normal visualized lung bases. Moderate stool throughout the colon. Dilated loop of small bowel left upper quadrant measuring 3.7 cm in transverse dimension. There is no demonstrated free abdominal air. The visualized liver, spleen and kidneys are grossly normal in size and morphology. Normal soft tissue structures. Normal visualized osseous structures. RAD/Abd Inc Decub and/or Erect IMPRESSION: Nonspecific bowel gas pattern. Stool is present throughout the colon which may represent constipation. Isolated dilated loop of proximal small bowel left upper quadrant. Recommend continued follow-up. Consider CT abdomen and pelvis to exclude an early proximal small bowel obstruction. Electronically Signed: Johnnie Rolle MD at 7:23 EST , Service support ,
--- NOTE | 2018-08-12 07:26 | PN_ITS ---
Patient Problems: Active and Suspected Problems Hematemesis with nausea (Acute) Abdominal pain (Acute) Subjective: Patient underwent EGD findings included Priscila-Horn tear started on PPI seen this a.m. tolerating oral diet Objective: GENERAL: cooperative HEENT: Atraumatic; NG tube in place EYES; Anicteric, Normal Conjunctiva NECK; supple, normal thyroid, no distended JVD. RESPIRATORY: Diminished to auscultation bilaterally, CARDIOVASCULAR: Regular S1 S2, no audible murmurs GI: soft, non-tender, normoactive bowel sounds, : No Renal angle tenderness; EXTREMITIES: No edema, no clubbing, no cyanosis. MUSCULOSKELETAL: No Joint Tenderness; no muscle waisting NEURO: Awake; no lateralizing signs. SKIN: No Rash PSYCH; Normal affect Vitals/I&O's: Vital Signs Temp Pulse Resp BP Pulse Ox 97.9 F 65 16 102/52 L 99 08/12/18 03:00 08/12/18 03:00 08/12/18 03:00 08/12/18 03:00 08/12/18 03:00 Oxygen Delivery Method Room Air Weight: 60.5 kg Body Mass Index (BMI) 18.1 Intake and Output for Last 24 Hours 08/10/18 08/11/18 08/12/18 23:59 23:59 23:59 Intake Total 2762 / 2762 2082 Output Total 50 / 50 Balance 2712 / 2712 2082 Current Medications Pantoprazole Sodium 40 mg/ (Sodium Chloride) 110 mls @ 330 mls/hr IV Q12 [facility] Last Admin: 08/11/18 21:03 Dose: 330 mls/hr Potassium Chloride/Dextrose/Sod Cl (Kcl 20meq In D5.45ns 1000ml) 1,000 mls @ 125 mls/hr IV .Q8H PEDRO [facility]IS Last Admin: 08/12/18 06:27 Dose: 125 mls/hr Magnesium Hydroxide (Milk Of Magnesia) 30 ml PO DAILY PRN PRN PRN Reason: Constipation Morphine Sulfate () 4 mg IV Q2H PRN PRN PRN Reason: SEVERE PAIN (6-10/10) Last Admin: 08/11/18 07:56 Dose: 4 mg Ondansetron HCl (Zofran) 8 mg IV Q8H PRN PRN PRN Reason: NAUSEA Promethazine HCl (Phenergan) 12.5 mg IV Q6H PRN PRN PRN Reason: NAUSEA/VOMITING Last Admin: 08/11/18 02:19 Dose: 12.5 mg Sodium Chloride () 5 - 15 ml IV UD PRN PRN Reason: SALINE FLUSH Throat Lozenges (Cepacol Sore Throat Lozenge) 1 lozenge MUCOUS MEM Q2H PRN PRN PRN Reason: SORE THROAT Last Admin: 08/11/18 21:48 Dose: 1 lozenge Medical Necessity - Tobacco Use Smoking Status: Current every day smoker Assessment/Plan All Active Problems Hematemesis with nausea (Acute) Abdominal pain (Acute) Patient is a 37-year-old gentleman who presented with intractable nausea vomiting associated with hematemesis. Admitted to regular nursing floor and consultation placed to Dr. Byrd for possible endoscopic evaluation 1. Suspected gastritis: Patient admitted to a regular nursing floor kept n.p.o. overnight started on PPI and consultation placed to Dr. Byrd for possible endoscopic evaluation. Patient underwent EGD on 08/11/2018 findings included Priscila-Horn tear started on PPI 2. Acute kidney injury secondary to above patient is on IV fluids with monitoring of electrolyte 3. Tobacco dependence counseled on cessation, offered nicotine patch for tobacco cravings 4. DVT prophylaxis low risk did encourage early ambulation
[2018-08-12 08:12] VITALS: BP 96/58; PULSE 73; RESP 18; TEMP 36.6; O2SAT 100
--- NOTE | 2018-08-12 09:19 | DCINST_ITS ---
- Discharge Diagnoses Current Active Problems: Current Active and Chronic Problems Hematemesis with nausea (Acute) Abdominal pain (Acute) You will use the following diet at home:: No restrictions Discharge Activity: Return to Normal Activity Allergies/Adverse Reactions: Allergies bee venom protein (honey bee) Allergy (Verified 08/10/18 20:07) Rash clindamycin Allergy (Verified 08/10/18 20:07) Rash Penicillins Allergy (Verified 08/10/18 20:07) Rash GETS A FEVER WELL Medications to take at Discharge Ondansetron [Zofran Odt] 4 mg PO Q8H PRN PRN #14 tablet 08/12/18 Pantoprazole Sodium [Protonix] 40 mg PO DAILY #60 tablet 08/12/18 The following prescriptions were given: Ondansetron [Zofran Odt] 4 mg PO Q8H PRN PRN #14 tablet PRN Reason: Nausea/Vomiting Pantoprazole Sodium [Protonix] 40 mg PO DAILY #60 tablet Primary Care Physician: Care Physician,No Primary [Primary Care Provider] - Please follow up with your Primary Care Physician in: in 1-2 weeks Test Results: Test results from this visit will be discussed in further detail at your follow- up appointment, if applicable. Please Follow Up With: Heron Centeno MD When: in 1-2 weeks Proposed Discharge Date: 08/12/18
--- NOTE | 2018-08-12 09:19 | PCM.DC.SUM ---
Discharge Date and Diagnosis - Problem List Patient Problems: Active and Suspected Problems Priscila-Horn tear (Acute) Hematemesis with nausea (Acute) Abdominal pain (Acute) Date of Admission: 08/10/18 Date of Discharge: 08/12/18 - Primary Discharge Diagnosis Active and Suspected Problems Priscila-Horn tear (Acute) Hematemesis with nausea (Acute) Abdominal pain (Acute) Hospital Course and Treatment Imaging Results: 08/12/18 06:00 Abd Inc Decub and/or Erect [RAD] Routine Summary of Care Provided: Patient is a 37-year-old gentleman who presented with intractable nausea vomiting associated with hematemesis. Admitted to regular nursing floor and consultation placed to Dr. Byrd for possible endoscopic evaluation 1. Suspected gastritis: Patient admitted to a regular nursing floor kept n.p.o. overnight started on PPI and consultation placed to Dr. Byrd for possible endoscopic evaluation. Patient underwent EGD on 08/11/2018 findings included Priscila-Horn tear started on PPI 2. Acute kidney injury secondary to above patient is on IV fluids with monitoring of electrolyte 3. Tobacco dependence counseled on cessation, offered nicotine patch for tobacco cravings 4. DVT prophylaxis low risk did encourage early ambulation Patient Problems: Active and Suspected Problems Priscila-Horn tear (Acute) Hematemesis with nausea (Acute) Abdominal pain (Acute) - Physical Exam General: Alert HEENT: Atraumatic Oral: Moist Mucosa Neck: Supple Lungs: Clear to auscultation Cardiovascular: Regular rate, Regular Rhythm Neurological: Neuro grossly intact Psych/Mental Status: Normal Affect Vital Signs Temp Pulse Resp BP Pulse Ox 97.9 F 73 18 96/58 L 100 08/12/18 08:12 08/12/18 08:12 08/12/18 08:12 08/12/18 08:12 08/12/18 08:12 Oxygen Delivery Method Room Air Weight: 60.5 kg Body Mass Index (BMI) 18.1 Intake and Output for Last 24 Hours 08/10/18 08/11/18 08/12/18 23:59 23:59 23:59 Intake Total 6402 / 2762 2082 Output Total 50 / 50 Balance 2712 / 2712 2082 Discharge Diet: No Restrictions Discharge Activity: Return to Normal Activity Home Medications: Medications to take at Discharge Ondansetron [Zofran Odt] 4 mg PO Q8H PRN PRN #14 tablet 08/12/18 Pantoprazole Sodium [Protonix] 40 mg PO DAILY #60 tablet 08/12/18 Following Prescrptions Were Given to Patient: Ondansetron [Zofran Odt] 4 mg PO Q8H PRN PRN #14 tablet PRN Reason: Nausea/Vomiting Pantoprazole Sodium [Protonix] 40 mg PO DAILY #60 tablet Primary Care Physician: Care Physician,No Primary [Primary Care Provider] - Please follow up with your Primary Care Physician in: in 1-2 weeks Please Follow Up With: Heron Centeno MD When: in 1-2 weeks Disposition: Home Minutes spent on discharge:: 35 Patient Condition:: Stable Medical Necessity - Tobacco Use Smoking Status: Current every day smoker Tobacco Use: Cigarettes Meaningful Use Info Meaningful Use Diagnoses (Choose all that apply): None applicable Code Visit OBSV E&M: 25597 Observation care discharge
== END 2018-08-12 12:50 | disposition home or self-care (01) ==
LOC: ED 21:12 → MS3 08-11 00:37
PROVIDERS: Surgery; Admitting Provider Family Medicine; Emergency Provider Emergency Medicine; Visit Provider Internal Medicine
PROC: 0DJ08ZZ Inspection of Upper Intestinal Tract, Via Natural or Artificial Opening Endoscopic (ICD-10-PCS; CPT 43235; principal; 2018-08-11 10:40)
DX: K22.6 Gastro-esophageal laceration-hemorrhage syndrome (principal); N17.9 Acute kidney failure, unspecified; F17.210 Nicotine dependence, cigarettes, uncomplicated; K44.9 Diaphragmatic hernia without obstruction or gangrene; K21.0 Gastro-esophageal reflux disease with esophagitis
CPT/HCPCS: 43239; 36415; 74018; 74019; 80048; 80076; 83690; 85025; 88305; 88342; 93005; 96361; 96365; 96366; 96375; 96376; 99218; 99284; 99406; J7030; A4216; G0378; J2405; J3490

== ENCOUNTER 2018-08-14 13:42 | Emergency (ER) | payer OTHER, SELFPAY ==
[2018-08-11 01:33] VITALS: BMI 18.1
[2018-08-14 13:43] VITALS: BP 113/62; PULSE 80; RESP 14; TEMP 37.1; O2SAT 100; BMI 18.0
[2018-08-14 14:54] VITALS: BP 122/80; PULSE 83; RESP 15; O2SAT 100
--- NOTE | 2018-08-14 14:56 | ED.DCSUM_ITS ---
- ER Visit Summary Date of Service: 08/14/18 Chief Complaint: Fatigue History of Present Illness: The patient is a 37 M presents to the emergency department fatigue. The patient was recently admitted a few days ago. He had a Priscila-Horn tear. He underwent endoscopy and was placed on PPI. Patient has been following with Dr. Byrd. He was actually scheduled to start work again tonight, but states he just does not feel like he is strong enough to go back to work. States his pain is markedly improved. He had no further vomiting. He had no bright red blood per rectum. He had no fevers or chills. He states he is just felt mildly fatigued since leaving the hospital. I will just feels like he is improving, but is still mildly uncomfortable. Physical Examination: Vital signs reviewed General: Well-nourished, well-developed Head: Normocephalic, atraumatic Eyes: Pupils equal and reactive, extraocular muscles intact Neck, supple, no lymphadenopathy Heart: Regular rate and rhythm Respiratory: No distress, clear bilaterally Abdomen: Soft, nontender, nondistended, no peritoneal signs Back: Nontender Extremities: Nontender, no edema, no cords Skin: Normal color no rash Neuro: Alert and oriented, no focal or lateralizing deficits Test Results: [] Emergency Department Course and Treatment: The patient presents with fatigue after surgical procedure. He is well-appearing. His vitals are normal. His ab domen is soft and nontender. He states that he does feel like he will be able to go back to surgery on Friday. I do feel that this is reasonable. I am going to write him off for tonight and have him return to work on Friday. He was counseled concerning symptoms and reasons to return. He will be discharged home. Treatment Plan: [] Disposition: Discharge Impression: 1. Fatigue status post surgery This note was generated with [employer] dictation software. It may contain incorrect words, spelling, and punctuation that were not noted in review of the chart prior to signing ED Disposition - Plan for ED Patient: Chief Complaint: General Illness Instructions: ED Weakness [facility] Referrals: Care Physician,No Primary [Primary Care Provider] -
--- OUTSIDE RECORDS SUMMARY | 2018-10-19 05:10 | XMS RPT_ITS ---
:1980 Author Organization OHIP Support Name Relationship Address Phone [employer] Unavailable [address] + [address] [place] [address] SHERRI, MARQUIS Unavailable [address] + [place] [address] [employer] Unavailable [address] + [address] [place] [address] SHERRI, MARQUIS Unavailable [address] + [place] [address] [employer] Unavailable [address] + [address] [place] [address] SHERRI, MARQUIS Unavailable [address] + [place] [address] [employer] Unavailable [address] + [address] [place] [address] SHERRI, MARQUIS Unavailable [address] + [place] [address] [employer] Unavailable [address] + [address] [place] [address] SHERRI, MARQUIS Unavailable [address] + [place] [address] [employer] Unavailable [address] + [address] [place] [address] SHERRI, MARQUIS Unavailable [address] + [place] [address] [employer] Unavailable [address] + [address] [place] [address] SHERRI, MARQUIS Unavailable [address] + [place] [address] [employer] Unavailable [address] + [address] [place] [address] MARQUIS POLANCO Unavailable [address] + [place] [address] [employer] Unavailable [address] + [address] [place] [address] MARQUIS POLANCO Unavailable [address] + [place] [address] Care Team Providers Name Role Phone Primay Care Physicia, No Primary Care Unavailable Lela Wild Attending Unavailable Thomas, Rainer Admitting Unavailable Kittoe, Christiano Attending Unavailable Primay Care Physicia, No Primary Care Unavailable Taryn, Heron Consulting Unavailable Kittoe, Christiano Consulting Unavailable Thomas, Rainer Admitting Unavailable Kittoe, Christiano Attending Unavailable Primay Care Physicia, No Primary Care Unavailable Taryn, Heron Consulting Unavailable Kittoe, Christiano Consulting Unavailable Primay Care Physicia, No Primary Care Unavailable Tyree Dover Attending Unavailable Primay Care Physicia, No Primary Care Unavailable Tyree Dover Attending Unavailable Thomas, Rainer Attending Unavailable Primay Care Physicia, No Primary Care Unavailable Primay Care Physicia, No Primary Care Unavailable Rainer Thomas Admitting Unavailable Taryn, Heron Consulting Unavailable Kittoe, Christiano Attending Unavailable Primay Care Physicia, No Primary Care Unavailable Mark Lux Attending Unavailable Primay Care Physicia, No Primary Care Unavailable Brian Dorado Attending Unavailable PROBLEMS PROBLEMS No Problem Records FoundPROCEDURES PROCEDURES No Procedure Records FoundRESULTS RESULTS EMERGENCY DEPARTMENT Observed: 08/17/2018 Status: F Source: QUINTER SUMMARY 3:51 PM [facility] REPOSITORY [facility] Medical Records Department [address] [place] [address] Emergency Department Summary 08/17/18 1547 MR#: [id number] Acct: [id number] Name: MYLES POLANCO Rep #: [id number] : 1980 37 From: Brian Dorado MD [...] and vomiting This note was generated with HuTerra dictation software. It may contain incorrect words, [...] problems, contact your Primary Care Provider. Call [email or web address] Registry ([phone]) or report to the closest Emergency Room. Call 911 if necessary. 08/17/18 1551 <Electronically signed by Brian Dorado MD> Date Brian Dorado MD Cosigner Signature (If Indicated): Date CC: No Primary Care Physician; Heron Velasco MD EMERGENCY DEPARTMENT Observed: 08/14/2018 Status: F Source: QUINTER SUMMARY 3:18 PM [facility] REPOSITORY [facility] Medical Records Department [address] [place] [address] Emergency Department Summary 08/14/18 1454 MR#: [id number] Acct: [id number] Name: MYLES POLANCO Rep #: [id number] : 1980 37 From: Tyree Dover MD [...] post surgery This note was generated with HuTerra dictation software. It may contain incorrect words, [...] your Primary Care Provider. Call [facility] ([phone]) or report to the closest Emergency Room. Call 911 if necessary. 08/14/18 1518 <Electronically signed by Tyree Dover MD> Date Tyree Dover MD Cosigner Signature (If Indicated): Date CC: No Primary Care Physician 12 LEAD ELECTROCARDIOGRAM Observed: 08/13/2018 Status: F Source: [place] 4:16 PM [facility] REPOSITORY [facility] Cardiovascular Services [address] [place] [address] 12 Lead EKG 08/11/18 0504 MR#: [id number] Acct: [id number] Name: MYLES POLANCO Rep #: [id number] : 1980 37 From: Rainer Kee MD [...] Normal ECG Confirmed by VIDHYA BUTT, RAINER ([id number]), assistant editor LAWRENCE HAGEN ([id number]) on 08/13/2018 4:16:42 PM Referred By: DAVID Confirmed By:RAINER KEE MD 08/13/18 1616 Date Rainer Kee MD CC: Karen Peterson MD; No Primary Care Physician; Christiano Singh MD Signed PROGRESS Observed: 08/12/2018 Status: COMPLETED Source: [place] 7:07 PM [facility] REPOSITORY O ID: [id number] Author: Heron Velasco Service: (none) Author Type: Physician Type: Progress Notes Filed: 08/12/2018 7:10 PM Note Text: OPERATIVE NOTATION FOR [facility] SURGICAL PROCEDURE. August 11, 2018 yMles Polanco 1980 [id number] male PROCEDURE: EGD WITH BIOPSY - 70775-379 SURGEON: Hawk Velasco M.D. FACS INDUSTRIAL ECOLOGY TECHNICIAN: None DEPT: WQ PROVIDER: A69=XxpuxghHeron Velasco MD POS: 8P7=ILRGSHYWV DIAGNOSIS: (R11.2) Nausea and vomiting, intractability of vomiting not specified, unspecified vomiting type (primary encounter diagnosis) ASA CLASS: 2 - mild FINDINGS: COMPLICATIONS: None PMHx - PAST MEDICAL HISTORY Diagnosis Date - NEGATIVE MEDICAL HISTORY COMORBIDITIES - None Post Op Occurrences - None Wound Classification - Clean Contaminated Operative note dictated in the [facility] dictation system. Heron Velasco MD DISCHARGE SUMMARY Observed: 08/12/2018 Status: F Source: [place] 9:22 AM [facility] REPOSITORY [facility] Medical Records Department [address] [place] [address] Discharge Summary 08/12/18 0919 MR#: [id number] Acct: [id number] Name: MYLES POLANCO Rep #: [id number] : 1980 37 From: Christiano Singh MD PCP: Care Physician, No Primary Status: ADM BARRY Y Location: [place] [address] Discharge Date and Diagnosis - Problem List [...] applicable Code Visit OBSV E AND M: 07797 Observation care discharge 08/12/18921 <Electronically signed by Christiano Singh MD> Date Christiano Singh MD Cosigner Signature (if applicable): Date CC: No Primary Care Physician; Christiano Singh MD Signed DISCHARGE INSTRUCTION Observed: 08/12/2018 Status: F Source: [place] 9:19 AM [facility] REPOSITORY [facility] Medical Records Department [address] [place] [address] Instructions for Home/Discharge Instructions 08/12/18917 MR#: [id number] Acct: [id number] Name: MYLES POLANCO Rep #: [id number] : 1980 37 From: Christiano Singh MD [...] F Source: [place] AND/OR ERECT 12:00 AM [facility] REPOSITORY [facility] Imaging Services [address] [place] [address] Abd Inc Decub and/or Erect MR#: [id number] Acct: [id number] Name: MYLES POLANCO T Rep #: [id number] : 1980 M 37 From: Johnnie Rolle PCP: Care Physician, No Primary Status: ADM BARRY Study: Abd Inc Decub and/or Erect Date of Exam: 08/12/18 Exam# [id number] Ordering Dr: Heron Velasco MD STUDY: X-RAY [...] No Primary Care Physician; Heron Velasco MD Pharmaceutical Analyst: Signed ABD INC DECUB Observed: 08/11/2018 Status: F Source: [place] AND/OR ERECT 11:37 AM [facility] REPOSITORY [facility] Imaging Services [address] [place] [address] Abd Inc Decub and/or Erect MR#: [id number] Acct: [id number] Name: MYLES POLANCO Rep #: [id number] : 1980 M 37 From: Derrick Weems MD PCP: Care Physician, No Primary Status: ADM BARRY Study: Abd Inc Decub and/or Erect Date of Exam: 08/11/18 Exam# [id number] Ordering Dr: Heron Velasco MD STUDY: X-RAY [...] No Primary Care Physician; Heron Velasco MD Pharmaceutical Analyst: Signed OPERATIVE REPORT - Observed: 08/11/2018 Status: F Source: QUINTER ENDOSCOPY 11:12 AM [facility] REPOSITORY [facility] Medical Records Department [address] [place] [address] Operative Report - Endoscopy MR#: [id number] Acct: [id number] Name: MYLES POLANCO Rep #: [id number] : 1980 37 From: Heron Velasco MD [...] present medications. Procedure Code(s): --- Professional --- 33166, Esophagogastroduodenoscopy, flexible, transoral; with biopsy, single or multiple CPT copyright 2017 [employer]. All rights reserved. The codes documented in this report are preliminary and upon grizzly worker review may be revised to meet current compliance requirements. Heron Velasco MD 08/11/2018 11:12:40 AM This report has been signed electronically. Number of Addenda: 0 Note Initiated On: 08/11/2018 10:26 AM 08/11/18 1112 Date Heron Velasco MD Cosigner Signature: Date (if indicated) CC: No Primary Care Physician; Christiano Singh MD; Heron Velasco MD Date Dictated: 08/11/18 1026 Date Transcribed: Pharmaceutical Analyst: NEVILLE Signed IMMUNOHISTOCHEMISTRY Observed: 08/11/2018 Status: F Source: [place] 10:45 AM [facility] REPOSITORY Patient: MYLES POLANCO : 1980 (37/M) Acct Num: [id number] Phys: Christiano Singh MD Unit Num: [id number] Loc: MS3 SW008-6 Specimen: [id number] Received: 08/11/18 - 7615 Spec Type: IMMUNO TISSUES 1 TISSUES: A. Stomach, NOS SPECIMEN INFORMATION: Tissue Source: A - Antrum biopsy, B - Distal esophagus biopsy Clinical Info: Nausea and vomiting coffee ground emesis; LUQ pain Specimen Number: [id number] A AND B CPT code: 59178 x2 METHODOLOGY: Deparaffinized sections of prefer/formalin-fixed tissue [...] developed and their performance characteristics determined by [facility]. They may not have been cleared or approved by the U.S. Food and Drug Administration. The FDA has determined that such clearance or approval is not necessary. INTERPRETATION: A. Antrum, biopsy: Negative for Helicobacter pylori organisms. B. Distal esophagus, biopsy: No evidence of dysplasia. AM:[place] 08/13/18 PHYSICIAN AND INSTITUTION [place] [address] Signed Dillon Wang DO 08/13/18 <signature on file> Performed By: #### PIMM #### [facility] [address] [place] [address]. [place], [address] CONSULTATION Observed: 08/11/2018 Status: F Source: QUINTER 10:37 AM [facility] REPOSITORY [facility] Medical Records Department [address] [place] [address] Consultation 08/11/18 1033 MR#: [id number] Acct: [id number] Name: MYLES POLANCO Rep #: [id number] : 1980 37 From: Heron Velasco MD PCP: Care Physician, No Primary Status: ADM BARRY Y Location: [place] [address] Reason for Consult Date of Consultation: 08/11/18 [...] to this episode. the patient presented to [facility] with these above findings. Due to [...] 08/11/2018 Status: F Source: [place] 5:02 AM [facility] REPOSITORY TYPE CODE TESTS RESULT OUT OF [...] Lymph 2.13 Performed By: #### L100.0100 #### [facility] [address] [place], [address] BASIC METABOLIC Collected: 08/11/2018 Status: F Source: QUINTER PROFILE (BMP) 5:02 AM [facility] REPOSITORY TYPE CODE TESTS RESULT OUT OF [...] GAP 6 Performed By: #### L500.2500 #### [facility] [place], [address] CNOP Observed: 08/11/2018 Status: COMPLETED Source: [place] 12:00 AM [facility] REPOSITORY Operative Note (Enc) (GENSWS) Progress Notes: Heron Velasco MD 08/12/2018 7:10 PM Signed OPERATIVE NOTATION FOR [facility] SURGICAL PROCEDURE. August 11, 2018 Myles Polanco 1980 [id number] male PROCEDURE: EGD WITH BIOPSY - 42818-670 SURGEON: Hawk Velasco M.D. FACS INDUSTRIAL ECOLOGY TECHNICIAN: None DEPT: JOSSELIN PROVIDER: N72=IcahvsvHeron Velasco MD POS: 6V2=TQGSAORGC DIAGNOSIS: (R11.2) Nausea and vomiting, intractability of vomiting not specified, unspecified vomiting type (primary encounter diagnosis) ASA CLASS: 2 - mild FINDINGS: COMPLICATIONS: None PMHx - PAST MEDICAL HISTORY Diagnosis Date - NEGATIVE MEDICAL HISTORY COMORBIDITIES - None Post Op Occurrences - None Wound Classification - Clean Contaminated Operative note dictated in the [facility] dictation system. Heron Velasco MD Encounter Status:Closed by HERON VELASCO MD on 08/12/18 GASTRIC BIOPSY Observed: 08/11/2018 Status: F Source: QUINTER 12:00 AM [facility] REPOSITORY Patient: MYLES POLANCO : 1980 (37/M) Acct Num: [id number] Phys: Francisco BUTT,Christiano Unit Num: [id number] Loc: MS3 [id number] Specimen: [id number] Received: 08/11/18 - 1334 Spec [...] one cassette. / SUNG:[place] 08/11/18 TC:4 CPT: 19332 x3 HEADER OPERATION: EGD ([facility]) PRE-OP DIAGNOSIS: Nausea and vomiting coffee ground [...] on file> Performed By: #### PGASB #### [facility] [address] [place], [address] HISTORY AND PHYSICAL Observed: 08/10/2018 Status: F Source: QUINTER EXAM 11:57 PM [facility] REPOSITORY [facility] Medical Records Department [address] [place] [address] History and Physical 08/10/18 2348 MR#: [id number] Acct: [id number] Name: MYLES POLANCO Rep #: [id number] : 1980 37 From: Rainer Thomas MD [...] prophylaxis Code Visit OBSV E AND M: 24045 Initial observation care L2 08/10/18 4806 <Electronically signed by Rainer Thomas MD> Date Rainer Thomas MD Cosigner Signature: Date (if applicable) CC: No Primary Care Physician; Rainer Thomas MD Signed EMERGENCY DEPARTMENT Observed: 08/10/2018 Status: F Source: QUINTER SUMMARY 11:50 PM [facility] REPOSITORY [facility] Medical Records Department [address] [place] [address] Emergency Department Summary 08/10/18 2151 MR#: [id number] Acct: [id number] Name: MYLES POLANCO Rep #: [id number] : 1980 37 From: Alexsandra Christopher MD [...] GI bleed This note was generated with HuTerra dictation software. It may contain incorrect words, [...] your Primary Care Provider. Call [facility] ([phone]) or report to the closest Emergency Room. Call 911 if necessary. 08/10/18 6080 <Electronically signed by Alexsandra Christopher MD> Date Alexsandra Christopher MD Cosigner Signature (If Indicated): Date CC: No Primary Care Physician ABDOMEN SINGLE VIEW Observed: 08/10/2018 Status: F Source: QUINTER (PORTABLE) 9:50 PM [facility] REPOSITORY [facility] Imaging Services [facility] [place] [address] Abdomen Single View (Portable) MR#: [id number] Acct: [id number] Name: MYLES POLANCO Rep #: [id number] : 1980 M 37 From: Sam Reveles MD PCP: Care Physician, No Primary Status: REG ER Study: Abdomen Single View (Portable) Date of Exam: 08/10/18 Exam# [id number] Ordering Dr: Alexsandra Christopher MD STUDY: X-RAY [...] No Primary Care Physician; Alexsandra Christopher MD Pharmaceutical Analyst: Signed BASIC METABOLIC Collected: 08/10/2018 Status: F Source: QUINTER PROFILE (BMP) 9:00 PM [facility] REPOSITORY TYPE CODE TESTS RESULT OUT OF [...] Performed By: #### L500.2500, L500.3400, L501.2450 #### [facility] [address] [place], [address] LIVER PROFILE Collected: 08/10/2018 Status: F Source: QUINTER 9:00 [facility] REPOSITORY TYPE CODE TESTS RESULT OUT OF [...] Performed By: #### L500.2500, L500.3400, L501.2450 #### [facility] [address] [place], [place], [address] LIPASE Collected: 08/10/2018 Status: F Source: QUINTER 9:00 PM [facility] REPOSITORY TYPE CODE TESTS RESULT OUT OF RANGE REFERENCE UNITS LAB L501.2450 73-393 U/L Normal LIPASE 102 Performed By: #### L500.2500, L500.3400, L501.2450 #### [facility] [address] [facility] [address] [place], [place], [address] CBC W/DIFF, AUTOMATED Collected: 08/10/2018 Status: F Source: QUINTER 9:00 PM [facility] REPOSITORY TYPE CODE TESTS RESULT OUT OF [...] Lymph 1.91 Performed By: #### L100.0100 #### [facility] [address] [facility] [place], [address] EMERGENCY DEPARTMENT Observed: 07/15/2018 Status: F Source: QUINTER SUMMARY 11:37 PM [facility] REPOSITORY [facility] Medical Records Department [address] [place] [address] Emergency Department Summary 07/14/18 1131 MR#: [id number] Acct: [id number] Name: MYLES POLANCO Rep #: [id number] : 1980 37 From: Lela Wild MD [...] dental decay This note was generated with HuTerra dictation software. It may contain incorrect words, [...] problems, contact your Primary Care Provider. Call [email or web address] Registry ([phone]) or report to the closest Emergency Room. Call 911 if necessary. 07/15/18 2337 <Electronically signed by Lela Wild MD> Date Lela Wild MD Cosigner Signature (If Indicated): Date CC: No Primary Care Physician DISCHARGE INSTRUCTION Observed: 07/14/2018 Status: F Source: [place] 11:35 AM [facility] REPOSITORY [facility] Medical Records Department [address] [place] [address] Discharge Instruction 07/14/18 1134 MR#: [id number] Acct: [id number] Name: MYLES POLANCO Rep #: [id number] : 1980 37 From: Lela Wild MD [...] your Primary Care Provider. Call [facility] ([phone]) or report to the closest Emergency Room. Call 911 if necessary. 07/14/18 1135 <Electronically signed by Lela Wild MD> Date Lela Wild MD Cosigner Signature (If Indicated): Date CC: No Primary Care Physician DISCHARGE INSTRUCTION Observed: 07/11/2018 Status: F Source: QUINTER 12:21 AM [facility] REPOSITORY [facility] Medical Records Department [address] [place] [address] Discharge Instruction 07/11/18 0019 MR#: [id number] Acct: [id number] Name: MYLES POLANCO Rep #: [id number] : 1980 37 From: Mark Lux MD [...] your Primary Care Provider. Call [facility] ([phone]) or report to the closest Emergency Room. Call 911 if necessary. 07/11/18 0021 <Electronically signed by Mark Lux MD> Date Mark Jose J MD Cosigner Signature (If Indicated): Date CC: No Primary Care Physician EMERGENCY DEPARTMENT Observed: 07/11/2018 Status: F Source: QUINTER SUMMARY 12:19 AM [facility] REPOSITORY [facility] Medical Records Department [address] [place] [address] Emergency Department Summary 07/11/18 0017 MR#: [id number] Acct: [id number] Name: MYLES POLANCO Rep #: [id number] : 1980 37 From: Mark Lux MD [...] Impression: Odontalgia This note was generated with HuTerra dictation software. It may contain incorrect words, [...] your Primary Care Provider. Call [facility] ([phone]) or report to the closest Emergency Room. Call 911 if necessary. 07/11/18 0019 <Electronically signed by Mark Lux MD> Date Mark Lux MD Cosigner Signature (If Indicated): Date CC: No Primary Care Physician PROGRESS Observed: 05/11/2018 Status: COMPLETED Source: [place] 1:37 PM [facility] REPOSITORY HNO ID: [id number] Author: Gerson Miller Service: (none) Author Type: [...] MD CNOV Observed: 05/11/2018 Status: COMPLETED Source: [place] 1:30 PM [facility] REPOSITORY Office Visit (WSTR) MYLES POLANCO ([id number]) 1980 M Date Time Provider Department 05/11/18 1:30 PM GERSON MILLER [facility] During your visit today, we [...] As Of Date: 05/11/2018 (None) Letter Text [facility] [address] [place], [place] [address] 05/11/2018 Myles Modi Sherri CCF# [id number] 07/29 [place] [address] TO WHOM IT MAY CONCERN: This is to confirm that Myles Modi Sherri had an appointment and was seen at the [facility] in the Department of Urgent Care by Gerson Miller MD on 05/11/2018 for illness and should be excused from work today. Sincerely, Gerson Miller MD Encounter Status:Closed by GERSON MILLER MD on 05/11/18 EMERGENCY DEPARTMENT Observed: 11/12/2017 Status: F Source: QUINTER SUMMARY 11:48 PM [facility] REPOSITORY [facility] Medical Records Department [address] [place] [address] Emergency Department Summary 11/12/17 2303 MR#: [id number] Acct: [id number] Name: MYLES POLANCO Rep #: [id number] : 1980 36 From: Tyree Dover MD [...] left thumb This note was generated with HuTerra dictation software. It may contain incorrect words, [...] your Primary Care Provider. Call [facility] ([phone]) or report to the closest Emergency Room. Call 911 if necessary. 11/12/17 9683 <Electronically signed by Tyree Dover MD> Date Tyree Lizama Signature (If Indicated): Date CC: No Primary Care Physician ALLERGIES ALLERGIES DATE TYPE / CODE NAME / CODE REACTION SEVERITY SOURCE 08/17/2018 Drug Penicillins/F0 Rash Unknown [facility] Allergy/4160 30699503([place] 7115002(SNOMED M) Repository CT) 08/17/2018 Drug clindamycin/F0 Rash Unknown [facility] Allergy/4160 11456789([place] 7115002(SNOMED M) Repository CT) 08/17/2018 Drug bee venom Rash Unknown [facility] Allergy/4160 protein ([place] [address](SNOMED bee)/[id number] Repository CT) 5(RXNORM) ENCOUNTERS ENCOUNTERS ADMIT/DISCHARGE ACCOUNT ADMITTING ENCOUNTER LOCATION SOURCE NUMBER CLASS 08/17/2018/08/17/19 [id number] Emergency [address] ing:ED Repository 08/14/2018/08/14/19 [id number] Emergency [address] ing:ED Repository 08/10/2018 [id number] Rainer Thomas Ambulatory BMSBuilding:Cherie Mohan [facility] Repository 08/10/2018 [id number] Rainer Thomas Ambulatory BMSBuilding:[place]rie [place].[facility] Repository 08/10/2018/08/12/19 [id number] Rainer Thomas Ambulatory [address] ing:FZ3Xrjy: Repository ZI231Xol: 1 08/10/2018 [id number] Ambulatory BMSBuilding:Cherie [place]an MS.[facility] Repository 07/14/2018/07/14/20 [id number] Emergency [address] ing:ED Repository 07/10/2018/07/11/20 [id number] Emergency [address] ing:ED Repository 05/11/2018/05/12/20 [id number] Ambulatory [address] Repository 11/12/2017/11/13/19 [id number] Emergency [address] ing:ED Repository PAYERS PAYERS ENCOUNTER GUARANTOR PAYER SUBSCRIBER SOURCE 08/17/2018 MYLES Modi Primary MYLES Mohan [id number] 1/2 E Insurance:MEDICAL BEACHYDOB: [facility] [id number], Number: Repository [place] [address]Kzb: [id number] Date:1603-27-01QQ [address] ([address]) [address] [address]AY: 08/17/2018 Secondary NOT GIVENUNK [place] Insurance:SELF PAY [facility] Number: Effective Repository Date:2018-08-17 08/14/2018 MYLES T Primary MYLES Mohan [id number] E Insurance:MEDICAL BEACHYDOB: [facility] [id number], Number: Repository [place] [address]Ciq: [id number] Date:5257-57-93BG [address] () [address], [place] [address]YQ: 08/14/2018 Secondary NOT GIVENUNK [place] Insurance:SELF PAY [facility] Number: Effective Repository Date:2018-08-14 08/10/2018 MYLES T Primary MYLES Mohan [id number] 1/2 E Insurance:MEDICAL BEACHYDOB: [facility] [id number], Number: Repository [place] [address]Ucj: [id number] Date:3978-76-71EL [address] () [address] [address]BZ: 08/10/2018 Secondary NOT GIVENUNK [place] Insurance:SELF PAY [facility] Number: Effective Repository Date:2018-08-10 08/10/2018 MYLES T Primary MYLES Mohan [id number] 1/2 E Insurance:MEDICAL BEACHYDOB: Community [facility]IN [facility] [id number], Number: Repository [place] [address]Vgv: [id number] Date:[id number] [address] ([address]) [address], [place] [address]BZ: 08/10/2018 Secondary NOT GIVENUNK [place] Insurance:SELF PAY [facility] Number: Effective Repository Date:2018-08-10 08/10/2018 MYLES Modi Primary MYLES Modi [place] [id number] 07/29 E Insurance:MEDICAL BEACHYDOB: Community MAIN [facility] [id number], Number: Repository [place] [address]Puu: [id number] Date:6109-25-13[address] () [address] [address]PI: 08/10/2018 Secondary NOT GIVENUNK Marques Insurance:SELF PAY [facility] Number: Effective Repository Date:2018-08-10 08/10/2018 MYLES Primary MYLES Modi Marques [id number] 07/29 E Insurance:MEDICAL BEACHYDOB: Community MAIN [facility] [id number], Number: Repository [place] [address]Axw: [id number] Date:4200-06-41[address] () [address] [address]RI: 08/10/2018 Secondary NOT GIVENUNK Marques Insurance:SELF PAY [facility] Number: Effective Repository Date:2018-08-10 07/14/2018 MYLES Modi Primary MYLES Modi [place] [id number] Insurance:MEDICAL BEACHYDOB: Community [facility] [id number], Number: Repository [place] [address]Zut: [id number] Date:6502-85-55MG [address] ([address]) [address] [address]HN: 07/14/2018 Secondary NOT GIVENUNK Marques Insurance:SELF PAY [facility] Number: Effective Repository Date:2018-07-14 07/10/2018 MYLES T Primary MYLES Modi [place] [id number] Insurance:MEDICAL [place]DOB: Community [facility] [place] [facility] [id number] Number: Repository [id number]: ([phone]) [id number] [phone] () Date:9591-55-79[address] [address]RT: 07/10/2018 Secondary NOT GIVENUNK Marques Insurance:SELF PAY [facility] Number: Effective Repository Date:2018-07-10 11/12/2017 MYLES Modi Primary Insurance:[facility] MYLES Modi Marques [id number] 07/29 E [facility] [place] MA[facility] Number: [id number] [id number] Repository [id number]: [phone]) Date:2606-72-68[phone] () [address] [place] [address]PT: 11/12/2017 Secondary NOT GIVENUNK [place] Insurance:SELF PAY [facility] Number: Effective Repository Date:2017-11-12
== END 2018-08-14 15:19 | disposition home or self-care (01) ==
LOC: ED 15:01
PROVIDERS: Emergency Provider Emergency Medicine
DX: R53.83 Other fatigue (principal); Z98.890 Other specified postprocedural states; K21.9 Gastro-esophageal reflux disease without esophagitis
CPT/HCPCS: 99282

== ENCOUNTER 2018-08-17 14:18 | Emergency (ER) | payer OTHER, SELFPAY ==
[2018-08-17 14:21] VITALS: BP 125/101; PULSE 85; RESP 16; TEMP 37; O2SAT 100; BMI 19.3
[2018-08-17] MEDS: Ondansetron 4 MG/2 ML Vial IV (15:10)
--- NOTE | 2018-08-17 15:39 | ED.RN ---
NG PLACED IN LEFT NARE, ATTACHED TO SUCTION IMMEDIATELY TO SEE IF BLOOD IN STOMACH PER MD ORDERS, 200ML CLEAR LIQUID SUCTIONED, PT DRANK WATER DURING INSERTION. NG IMMEDIATELY REMOVED AGAIN.
--- NOTE | 2018-08-17 15:47 | ED.VISSUMM ---
- ER Visit Summary Date of Service: 08/17/18 Chief Complaint: Upper midline abdominal pain with one episode of vomiting. History of Present Illness: The patient is a 37 M who was recently admitted to the hospital and on EGD performed by Dr. Heron Centeno was noted to have a small hiatal hernia and acute gastritis. He was discharged home and prescribed Zofran for his nausea and vomiting and a PPI for his gastritis. Biopsies were taken. He returned several days later and was seen in the emergency room and discharged home. He denies black, maroon colored stool or blood in his stool. He states prior to today the last time he vomited was Friday and only vomited once. He states the fluid was cereal that he just ate. He denies fever, chills night sweats. Denies orthostatic symptoms. He denies cardiac respiratory symptoms. He denies food intolerance. He denies urologic symptoms. Physical Examination: Vital signs noted and normal. He is a thin gentleman. HEENT exam is unremarkable and conjunctive is pink. Lungs are clear to auscultation. Heart is regular without murmur, gallop or rub. Patient has pain to palpation of the upper abdomen. Negative Beth sign. Negative guarding or rebound tenderness. No evidence of umbilical hernia. There is no CVA tenderness noted. Neuro exam is nonfocal. Test Results: NG was placed and there was no blood or coffee-ground gastric fluid. No other tests were done. Emergency Department Course and Treatment: NG was placed to assess for active GI bleeding or recent GI bleed. He was treated with Pepcid and GI cocktail. He reports improvement. Treatment Plan: Discharge to home and follow-up with Dr. Byrd as scheduled Disposition: Discharge in stable condition Impression: 1. Upper abdominal pain secondary to gastritis, acute 2. Nausea and vomiting This note was generated with [employer] dictation software. It may contain incorrect words, spelling, and punctuation that were not noted in review of the chart prior to signing ED Disposition - Plan for ED Patient: Disposition: Home or Assisted Living Chief Complaint: Abd Pain Instructions: ED Gastritis Referrals: Care Physician,No Primary [Primary Care Provider] - Heron Centeno MD [STAFF PHYSICIAN] - Keep Nagi appointment Additional Instructions: Take Mylanta every 2-4 hours as needed for the next day or 2. Do not question your pills take them as instructed.
--- NOTE | 2018-08-17 15:51 | ED.DCSUM_ITS ---
- ER Visit Summary Date of Service: 08/17/18 Chief Complaint: Upper midline abdominal pain with one episode of vomiting. History of Present Illness: The patient is a 37 M who was recently admitted to the hospital and on EGD performed by Dr. Heron Centeno was noted to have a small hiatal hernia and acute gastritis. He was discharged home and prescribed Zofran for his nausea and vomiting and a PPI for his gastritis. Biopsies were taken. He returned several days later and was seen in the emergency room and discharged home. He denies black, maroon colored stool or blood in his stool. He states prior to today the last time he vomited was Friday and only vomited once. He states the fluid was cereal that he just ate. He denies fever, chills night sweats. Denies orthostatic symptoms. He denies cardiac respiratory symptoms. He denies food intolerance. He denies urologic symptoms. Physical Examination: Vital signs noted and normal. He is a thin gentleman. HEENT exam is unremarkable and conjunctive is pink. Lungs are clear to auscultation. Heart is regular without murmur, gallop or rub. Patient has pain to palpation of the upper abdomen. Negative Beth sign. Negative guarding or rebound tenderness. No evidence of umbilical hernia. There is no CVA tende rness noted. Neuro exam is nonfocal. Test Results: NG was placed and there was no blood or coffee-ground gastric fluid. No other tests were done. Emergency Department Course and Treatment: NG was placed to assess for active GI bleeding or recent GI bleed. He was treated with Pepcid and GI cocktail. He reports improvement. Treatment Plan: Discharge to home and follow-up with Dr. Byrd as scheduled Disposition: Discharge in stable condition Impression: 1. Upper abdominal pain secondary to gastritis, acute 2. Nausea and vomiting This note was generated with [employer] dictation software. It may contain incorrect words, spelling, and punctuation that were not noted in review of the chart prior to signing ED Disposition - Plan for ED Patient: Disposition: Home or Assisted Living Chief Complaint: Abd Pain Instructions: ED Gastritis Referrals: Care Physician,No Primary [Primary Care Provider] - Heron Centeno MD [STAFF PHYSICIAN] - Keep Nagi appointment Additional Instructions: Take Mylanta every 2-4 hours as needed for the next day or 2. Do not question your pills take them as instructed.
[2018-08-17] MEDS: Mag Hydrox/Al Hydrox/Simeth 30 ML UDC PO (16:06)
--- OUTSIDE RECORDS SUMMARY | 2018-10-20 03:43 | XMS RPT_ITS ---
:1980 Author Organization OHIP Support Name Relationship Address Phone [employer] Unavailable [address] + [address] [place] [address] SHERRI, MARQUIS Unavailable [address] + [place] [address] [employer] Unavailable [address] + [address] [place] [address] SHERRI, MARQUIS Unavailable [address] + [place] [address] [employer] Unavailable [address] + [address] [place] [address] SHERRI, MARQUIS Unavailable [address] + [place] [address] [employer] Unavailable [address] + [address] [place] [address] SHERRI, MARQUIS Unavailable [address] + [place] [address] [employer] Unavailable [address] + [address] [place] [address] SHERRI, MARQUIS Unavailable [address] + [place] [address] [employer] Unavailable [address] + [address] [place] [address] SHERRI, MARQUIS Unavailable [address] + [place] [address] [employer] Unavailable [address] + [address] [place] [address] SHERRI, MARQUIS Unavailable [address] + [place] [address] [employer] Unavailable [address] + [address] [place] [address] MARQUIS POLANCO Unavailable [address] + [place] [address] [employer] Unavailable [address] + [address] [place] [address] MARQUIS POLANCO Unavailable [address] + [place] [address] Care Team Providers Name Role Phone Primay [...] Care Physicia, No Primary Care Unavailable Tyree Dvoer Attending Unavailable Primay Care Physicia, No Primary Care Unavailable Tyree Dover Attending Unavailable Primay Care Physicia, No Primary Care Unavailable Brian Dorado Attending Unavailable PROBLEMS PROBLEMS No Problem Records FoundPROCEDURES PROCEDURES No Procedure Records FoundRESULTS RESULTS EMERGENCY DEPARTMENT Observed: 08/17/2018 Status: F Source: [place] SUMMARY 3:51 PM [facility] REPOSITORY [facility] Medical Records Department [address] [place] [address] Emergency Department Summary 08/17/18 1547 MR#: [id number] Acct: [id number] Name: MYLES POLANCO Rep #: [id number] : 1980 37 From: Brian Dorado MD [...] and vomiting This note was generated with Bantr dictation software. It may contain incorrect words, [...] problems, contact your Primary Care Provider. Call [facility] ([phone]) or report to the closest Emergency Room. Call 911 if necessary. 08/17/18 1551 <Electronically signed by Brian Dorado MD> Date Brian Dorado MD Cosigner Signature (If Indicated): Date CC: No Primary Care Physician; Heron Velasco MD EMERGENCY DEPARTMENT Observed: 08/14/2018 Status: F Source: [place] SUMMARY 3:18 PM [facility] REPOSITORY [facility] Medical Records Department [address] [place] [address] Emergency Department Summary 08/14/18 1454 MR#: [id number] Acct: [id number] Name: MYLES POLANCO Rep #: [id number] : 1980 37 From: Tyree Dover MD [...] post surgery This note was generated with Bantr dictation software. It may contain incorrect words, [...] your Primary Care Provider. Call [facility] ([phone]) or report to the closest Emergency Room. Call 911 if necessary. 08/14/18 1518 <Electronically signed by Tyree Dover MD> Date Tyree Dover MD Cosigner Signature (If Indicated): Date CC: No Primary Care Physician 12 LEAD ELECTROCARDIOGRAM Observed: 08/13/2018 Status: F Source: [place] 4:16 PM [facility] REPOSITORY [facility] Cardiovascular Services [address] [place] [address] 12 Lead EKG 08/11/18 0504 MR#: [id number] Acct: [id number] Name: MYLES POLANCO Rep #: [id number] : 1980 37 From: Rainer Kee MD [...] Normal ECG Confirmed by VIDHYA BUTT, RAINER ([id number]), script editor LAWRENCE HAGEN ([id number]) on 08/13/2018 4:16:42 PM Referred By: DAVID Confirmed By:RAINER KEE MD 08/13/18 1616 Date Rainer Kee MD CC: Karen Peterson MD; No Primary Care Physician; Christiano Singh MD Signed PROGRESS Observed: 08/12/2018 Status: COMPLETED Source: [place] 7:07 PM [facility] REPOSITORY O ID: [id number] Author: Heron Velasco Service: (none) Author Type: Physician Type: Progress Notes Filed: 08/12/2018 7:10 PM Note Text: OPERATIVE NOTATION FOR [facility] SURGICAL PROCEDURE. August 11, 2018 Myles Polanco 1980 [id number] male PROCEDURE: EGD WITH BIOPSY - 52841-256 SURGEON: Hawk Velasco M.D. FACS DEDICATED LOCAL TRUCK DRIVER: None DEPT: WQ PROVIDER: [id number] Velasco MD POS: [id number] DIAGNOSIS: (R11.2) Nausea and vomiting, intractability of vomiting not specified, unspecified vomiting type (primary encounter diagnosis) ASA CLASS: 2 - mild FINDINGS: COMPLICATIONS: None PMHx - PAST MEDICAL HISTORY Diagnosis Date - NEGATIVE MEDICAL HISTORY COMORBIDITIES - None Post Op Occurrences - None Wound Classification - Clean Contaminated Operative note dictated in the [facility] dictation system. Heron Velasco MD DISCHARGE SUMMARY Observed: 08/12/2018 Status: F Source: [place] 9:22 AM [facility] REPOSITORY [facility] Medical Records Department [address] [place] [address] Discharge Summary 08/12/18 0919 MR#: [id number] Acct: [id number] Name: MYLES POLANCO Rep #: [id number] : 1980 37 From: Christiano Singh MD PCP: Care Physician, No Primary Status: ADM BARRY Y Location: [place] [address] Discharge Date and Diagnosis - Problem List [...] applicable Code Visit OBSV E AND M: 94851 Observation care discharge 08/12/18921 <Electronically signed by Christiano Singh MD> Date Christiano Singh MD Cosigner Signature (if applicable): Date CC: No Primary Care Physician; Christiano Singh MD Signed DISCHARGE INSTRUCTION Observed: 08/12/2018 Status: F Source: [place] 9:19 AM [facility] REPOSITORY [facility] Medical Records Department [address] [place] [address] Instructions for Home/Discharge Instructions 08/12/18917 MR#: [id number] Acct: [id number] Name: MYLES POLANCO Rep #: [id number] : 1980 37 From: Christiano Singh MD [...] F Source: [place] AND/OR ERECT 12:00 AM [facility] REPOSITORY [facility] Imaging Services [address] [place] [address] Abd Inc Decub and/or Erect MR#: [id number] Acct: [id number] Name: MYLES POLANCO T Rep #: [id number] : 1980 M 37 From: Johnnie Rolle PCP: Care Physician, No Primary Status: ADM BARRY Study: Abd Inc Decub and/or Erect Date of Exam: 08/12/18 Exam# [id number] Ordering Dr: Heron Velasco MD STUDY: X-RAY [...] No Primary Care Physician; Heron Velasco MD Clinical Microbiologist: Signed ABD INC DECUB Observed: 08/11/2018 Status: F Source: [place] AND/OR ERECT 11:37 AM [facility] REPOSITORY [facility] Imaging Services [address] [place] [address] Abd Inc Decub and/or Erect MR#: [id number] Acct: [id number] Name: MYLES POLANCO Rep #: [id number] : 1980 M 37 From: Derrick Weems MD PCP: Care Physician, No Primary Status: ADM BARRY Study: Abd Inc Decub and/or Erect Date of Exam: 08/11/18 Exam# [id number] Ordering Dr: Heron Velasco MD STUDY: X-RAY [...] No Primary Care Physician; Heron Velasco MD Clinical Microbiologist: Signed OPERATIVE REPORT - Observed: 08/11/2018 Status: F Source: [place] ENDOSCOPY 11:12 AM [facility] REPOSITORY [facility] Medical Records Department [address] [place] [address] Operative Report - Endoscopy MR#: [id number] Acct: [id number] Name: MYLES POLANCO Rep #: [id number] : 1980 37 From: Heron Velasco MD [...] present medications. Procedure Code(s): --- Professional --- 32230, Esophagogastroduodenoscopy, flexible, transoral; with biopsy, single or multiple CPT copyright 2017 [employer]. All rights reserved. The codes documented in this report are preliminary and upon knurling machine operator review may be revised to meet current compliance requirements. Heron Velasco MD 08/11/2018 11:12:40 AM This report has been signed electronically. Number of Addenda: 0 Note Initiated On: 08/11/2018 10:26 AM 08/11/18 1112 Date Heron Velasco MD Cosigner Signature: Date (if indicated) CC: No Primary Care Physician; Christiano Singh MD; Heron Velasco MD Date Dictated: 08/11/18 1026 Date Transcribed: Clinical Microbiologist: NEVILLE Signed IMMUNOHISTOCHEMISTRY Observed: 08/11/2018 Status: F Source: [place] 10:45 AM [facility] REPOSITORY Patient: MYLES POLANCO : 1980 (37/M) Acct Num: [id number] Phys: Christiano Singh MD Unit Num: [id number] Loc: MS3 [id number] Specimen: [id number] Received: 08/11/18 - 2975 Spec Type: IMMUNO TISSUES 1 TISSUES: A. Stomach, NOS SPECIMEN INFORMATION: Tissue Source: A - Antrum biopsy, B - Distal esophagus biopsy Clinical Info: Nausea and vomiting coffee ground emesis; LUQ pain Specimen Number: [id number] A AND B CPT code: 88399 x2 METHODOLOGY: Deparaffinized sections of prefer/formalin-fixed tissue [...] developed and their performance characteristics determined by [facility]. They may not have been cleared or approved by the U.S. Food and Drug Administration. The FDA has determined that such clearance or approval is not necessary. INTERPRETATION: A. Antrum, biopsy: Negative for Helicobacter pylori organisms. B. Distal esophagus, biopsy: No evidence of dysplasia. AM:[place] 08/13/18 PHYSICIAN AND INSTITUTION [place] [address] Signed Dillon Wang DO 08/13/18 <signature on file> Performed By: #### PIMM #### [facility] [address] [place] [address]. [place], [address] CONSULTATION Observed: 08/11/2018 Status: F Source: [place] 10:37 AM [facility] REPOSITORY [facility] Medical Records Department [address] [place] [address] Consultation 08/11/18 1033 MR#: [id number] Acct: [id number] Name: MYLES POLANCO Rep #: [id number] : 1980 37 From: Heron Velasco MD PCP: Care Physician, No Primary Status: ADM BARRY Y Location: [place] [address] Reason for Consult Date of Consultation: 08/11/18 [...] to this episode. the patient presented to [facility] with these above findings. Due to persistent [...] 08/11/2018 Status: F Source: [place] 5:02 AM [facility] REPOSITORY TYPE CODE TESTS RESULT OUT [...] Lymph 2.13 Performed By: #### L100.0100 #### [facility] [address] [place], [address] BASIC METABOLIC Collected: 08/11/2018 Status: F Source: [place] PROFILE (BMP) 5:02 AM [facility] REPOSITORY TYPE CODE TESTS RESULT OUT [...] GAP 6 Performed By: #### L500.2500 #### [facility] [place], [address] CNOP Observed: 08/11/2018 Status: COMPLETED Source: [place] 12:00 AM [facility] REPOSITORY Operative Note (Enc) (GENSWS) Progress Notes: Heron Velasco MD 08/12/2018 7:10 PM Signed OPERATIVE NOTATION FOR [facility] SURGICAL PROCEDURE. August 11, 2018 Myles Polanco 1980 [id number] male PROCEDURE: EGD WITH BIOPSY - 61100-354 SURGEON: Hawk Velasco M.D. FACS DEDICATED LOCAL TRUCK DRIVER: None DEPT: JOSSELIN PROVIDER: [id number] Velasco MD POS: [id number] DIAGNOSIS: (R11.2) Nausea and vomiting, intractability of vomiting not specified, unspecified vomiting type (primary encounter diagnosis) ASA CLASS: 2 - mild FINDINGS: COMPLICATIONS: None PMHx - PAST MEDICAL HISTORY Diagnosis Date - NEGATIVE MEDICAL HISTORY COMORBIDITIES - None Post Op Occurrences - None Wound Classification - Clean Contaminated Operative note dictated in the [facility] dictation system. Heron Velasco MD Encounter Status:Closed by HERON VELASCO MD on 08/12/18 GASTRIC BIOPSY Observed: 08/11/2018 Status: F Source: [place] 12:00 AM [facility] REPOSITORY Patient: MYLES POLANCO : 1980 (37/M) Acct Num: [id number] Phys: Francisco BUTT,Christiano Unit Num: [id number] Loc: MS3 [id number] Specimen: [id number] Received: 08/11/18 - 1334 Spec [...] one cassette. / SUNG:[place] 08/11/18 TC:4 CPT: 67652 x3 HEADER OPERATION: EGD ([facility]) PRE-OP DIAGNOSIS: Nausea and vomiting coffee ground [...] on file> Performed By: #### PGASB #### [facility] [address] [place], [address] HISTORY AND PHYSICAL Observed: 08/10/2018 Status: F Source: [place] EXAM 11:57 PM [facility] REPOSITORY [facility] Medical Records Department [address] [place] [address] History and Physical 08/10/18 2348 MR#: [id number] Acct: [id number] Name: MYLES POLANCO Rep #: [id number] : 1980 37 From: Rainer Thomas MD [...] prophylaxis Code Visit OBSV E AND M: 65405 Initial observation care L2 08/10/18 8038 <Electronically signed by Rainer Thomas MD> Date Rainer Thomas MD Cosigner Signature: Date (if applicable) CC: No Primary Care Physician; Rainer Thomas MD Signed EMERGENCY DEPARTMENT Observed: 08/10/2018 Status: F Source: [place] SUMMARY 11:50 PM [facility] REPOSITORY [facility] Medical Records Department [address] [place] [address] Emergency Department Summary 08/10/18 2151 MR#: [id number] Acct: [id number] Name: MYLES POLANCO Rep #: [id number] : 1980 37 From: Alexsandra Christopher MD [...] GI bleed This note was generated with Bantr dictation software. It may contain incorrect words, [...] your Primary Care Provider. Call [facility] ([phone]) or report to the closest Emergency Room. Call 911 if necessary. 08/10/18 8380 <Electronically signed by Alexsandra Christopher MD> Date Alexsandra Christopher MD Cosigner Signature (If Indicated): Date CC: No Primary Care Physician ABDOMEN SINGLE VIEW Observed: 08/10/2018 Status: F Source: [place] (PORTABLE) 9:50 PM [facility] REPOSITORY [facility] Imaging Services [facility] [place] [address] Abdomen Single View (Portable) MR#: [id number] Acct: [id number] Name: MYLES POLANCO Rep #: [id number] : 1980 M 37 From: Sam Reveles MD PCP: Care Physician, No Primary Status: REG ER Study: Abdomen Single View (Portable) Date of Exam: 08/10/18 Exam# [id number] Ordering Dr: Alexsandra Christopher MD STUDY: X-RAY [...] No Primary Care Physician; Alexsandra Christopher MD Clinical Microbiologist: Signed BASIC METABOLIC Collected: 08/10/2018 Status: F Source: [place] PROFILE (BMP) 9:00 PM [facility] REPOSITORY TYPE CODE TESTS RESULT OUT [...] Performed By: #### L500.2500, L500.3400, L501.2450 #### [facility] [address] [place], [address] LIVER PROFILE Collected: 08/10/2018 Status: F Source: [place] 9:00 [facility] REPOSIT[place] TYPE CODE TESTS RESULT OUT OF [...] Performed By: #### L500.2500, L500.3400, L501.2450 #### [facility] [address] [place], [place], [address] LIPASE Collected: 08/10/2018 Status: F Source: [place] 9:00 PM [facility] REPOSITORY TYPE CODE TESTS RESULT OUT OF RANGE REFERENCE UNITS LAB L501.2450 73-393 U/L Normal LIPASE 102 Performed By: #### L500.2500, L500.3400, L501.2450 #### [facility] [address] [facility] [address] [place], [place], [address] CBC W/DIFF, AUTOMATED Collected: 08/10/2018 Status: F Source: [place] 9:00 PM [facility] REPOSITORY TYPE CODE TESTS RESULT OUT [...] Lymph 1.91 Performed By: #### L100.0100 #### [facility] [address] [facility] [place], [address] EMERGENCY DEPARTMENT Observed: 07/15/2018 Status: F Source: [place] SUMMARY 11:37 PM [facility] REPOSITORY [facility] Medical Records Department [address] [place] [address] Emergency Department Summary 07/14/18 1131 MR#: [id number] Acct: [id number] Name: MYLES POLANCO Rep #: [id number] : 1980 37 From: Lela Wild MD [...] dental decay This note was generated with Bantr dictation software. It may contain incorrect words, [...] problems, contact your Primary Care Provider. Call [facility] ([phone]) or report to the closest Emergency Room. Call 911 if necessary. 07/15/18 2337 <Electronically signed by Lela Wild MD> Date Lela Wild MD Cosigner Signature (If Indicated): Date CC: No Primary Care Physician DISCHARGE INSTRUCTION Observed: 07/14/2018 Status: F Source: [place] 11:35 AM [facility] REPOSITORY [facility] Medical Records Department [address] [place] [address] Discharge Instruction 07/14/18 1134 MR#: [id number] Acct: [id number] Name: MYLES POLANCO Rep #: [id number] : 1980 37 From: Lela Wild MD [...] your Primary Care Provider. Call [facility] ([phone]) or report to the closest Emergency Room. Call 911 if necessary. 07/14/18 1135 <Electronically signed by Lela Wild MD> Date Lela Wild MD Cosigner Signature (If Indicated): Date CC: No Primary Care Physician DISCHARGE INSTRUCTION Observed: 07/11/2018 Status: F Source: [place] 12:21 AM [facility] REPOSITORY [facility] Medical Records Department [address] [place] [address] Discharge Instruction 07/11/18 0019 MR#: [id number] Acct: [id number] Name: MYLES POLANCO Rep #: [id number] : 1980 37 From: Mark Lux MD [...] your Primary Care Provider. Call [facility] ([phone]) or report to the closest Emergency Room. Call 911 if necessary. 07/11/18 0021 <Electronically signed by Mark Lux MD> Date Mark Jose J MD Cosigner Signature (If Indicated): Date CC: No Primary Care Physician EMERGENCY DEPARTMENT Observed: 07/11/2018 Status: F Source: [place] SUMMARY 12:19 AM [facility] REPOSITORY [facility] Medical Records Department [address] [place] [address] Emergency Department Summary 07/11/18 0017 MR#: [id number] Acct: [id number] Name: MYLES POLANCO Rep #: [id number] : 1980 37 From: Mark Lux MD [...] Impression: Odontalgia This note was generated with Bantr dictation software. It may contain incorrect words, [...] your Primary Care Provider. Call [facility] ([phone]) or report to the closest Emergency Room. Call 911 if necessary. 07/11/18 0019 <Electronically signed by Mark Lux MD> Date Mark Lux MD Cosigner Signature (If Indicated): Date CC: No Primary Care Physician PROGRESS Observed: 05/11/2018 Status: COMPLETED Source: [place] 1:37 PM [facility] [facility] REPOSITORY HNO ID: [id number] Author: Gerson Miller Service: (none) Author Type: [...] MD CNOV Observed: 05/11/2018 Status: COMPLETED Source: [place] 1:30 PM [facility] REPOSITORY Office Visit (WSTR) MYLES POLANCO ([id number]) 1980 M Date Time Provider Department 05/11/18 1:30 PM [facility] During your visit today, we recorded the [...] As Of Date: 05/11/2018 (None) Letter Text [place] [facility] [address] [place], [place] [address] 05/11/2018 Myles Modi Sherri CCF# [id number] 07/29 [place] [address] TO WHOM IT MAY CONCERN: This is to confirm that Myles Modi Sherri had an appointment and was seen at the [facility] in the Department of Urgent Care by Gerson Miller MD on 05/11/2018 for illness and should be excused from work today. Sincerely, Gerson Miller MD Encounter Status:Closed by GERSON MILLER MD on 05/11/18 EMERGENCY DEPARTMENT Observed: 11/12/2017 Status: F Source: [place] SUMMARY 11:48 PM [facility] REPOSITORY [facility] Medical Records Department [address] [place] [address] Emergency Department Summary 11/12/17 2303 MR#: [id number] Acct: [id number] Name: MYLES POLANCO Rep #: [id number] : 1980 36 From: Tyree Dover MD [...] left thumb This note was generated with Bantr dictation software. It may contain incorrect words, [...] your Primary Care Provider. Call [facility] ([phone]) or report to the closest Emergency Room. Call 911 if necessary. 11/12/17 5100 <Electronically signed by Tyree Dover MD> Date Tyree Lizama Signature (If Indicated): Date CC: No Primary Care Physician ALLERGIES ALLERGIES DATE TYPE / CODE NAME / CODE REACTION SEVERITY SOURCE 08/17/2018 Drug Penicillins/F0 Rash Unknown [facility] Allergy/4160 [id number]([place] 0841402(SNOMED M) Repository CT) 08/17/2018 Drug bee venom Rash Unknown [facility] Allergy/4160 protein ([place] [address](OMED bee)/[id number] Repository CT) 5(RXNORM) 08/17/2018 Drug clindamycin/F0 Rash Unknown [facility] Allergy/4160 60105143([place] [address](SNOMED M) Repository CT) ENCOUNTERS ENCOUNTERS ADMIT/DISCHARGE ACCOUNT ADMITTING ENCOUNTER LOCATION SOURCE NUMBER CLASS 08/17/2018/08/17/19 [id number] Emergency [address] ing:ED Repository 08/14/2018/08/14/19 [id number] Emergency [address] ing:ED Repository 08/10/2018/08/12/19 [id number] [facility] Amb[facility] [address] ing:FR9Yvhd: Repository FQ701Rtz: 1 08/10/2018 [id number] R[facility] Thomas Ambulatory BMSBuilding:[facility]rie [facility] Repository 08/10/2018 [id number] Rainer Thomas Ambulatory BMSBuilding:[place] Repository 08/10/2018 [id number] Ambulatory BMSBuilding:[place] Repository 07/14/2018/07/14/20 [id number] Emergency [address] ing:ED Repository 07/10/2018/07/11/20 [id number] Emergency [address] ing:ED Repository 05/11/2018/05/12/20 [id number] Ambulatory [address] Repository 11/12/2017/11/13/19 [id number] Emergency [address] ing:ED Repository PAYERS PAYERS ENCOUNTER GUARANTOR PAYER SUBSCRIBER SOURCE 08/17/2018 MYLES Modi Primary MYLES Mohan [id number] 1/2 E Insurance[place] [facility] [id number], Number: Repository [place] [id number]: [id number] Date:1967-52-22RZ B[address] (HP) [address] [address]LQ: 08/17/2018 Secondary NOT GIVENUNK [place] Insurance:SELF PAY [facility] Number: Effective Repository Date:2018-08-17 08/14/2018 MYLES T Primary MYLES Moahn [id number] Insurance:[place] [facility] [id number], Number: Repository [place] [address]Srp: [id number] Date:1303-41-05MC [address] () [address] [address]OC: 08/14/2018 Secondary NOT GIVENUNK [place] Insurance:SELF PAY [facility] Number: Effective Repository Date:2018-08-14 08/10/2018 MYLES T Primary MYLES Mohan [id number] 1/2 E Insurance:[place] [facility] [id number], Number: Repository [place] [address]Jlq: [id number] Date:6311-39-03YH [address] () [address] [address]HH: 08/10/2018 Secondary NOT GIVENUNK [place] Insurance:SELF PAY [facility] Number: Effective Repository Date:2018-08-10 08/10/2018 MYLES T Primary MYLES Mohan [id number] 1/2 E Insurance:MEDICAL [place]OB: Community [facility] [id number], Number: Repository [place] [address]Ofq: [id number] Date:4055-80-12ZN BOX (HP) [address] [address]DA: 08/10/2018 Secondary NOT GIVENUNK [place] Insurance:SELF PAY [facility] Number: Effective Repository Date:2018-08-10 08/10/2018 MYLES Modi Primary MYLES Modi [place] [id number] 07/29 E Insurance:MEDICAL BE[place]YDOB: Community MAIN [facility] [id number], Number: Repository [place] [address]Tvi: [id number] Date:0065-92-49ZX [address] () [address] [address]SY: 08/10/2018 Secondary NOT GIVENUNK [place] Insurance:SELF PAY [facility] Number: Effective Repository Date:2018-08-10 08/10/2018 MYLES Primary MYLES Modi [place] [id number] 07/29 E Insurance:MEDICAL BE[place]YDOB: Community MAIN [facility] [id number], Number: Repository [place] [id number]: [id number] Date:0636-34-21YY B[address] () [address] [address]CB: 08/10/2018 Secondary NOT GIVENUNK Marques Insurance:SELF PAY [facility] Number: Effective Repository Date:2018-08-10 07/14/2018 MYLES Modi Primary MYLES Modi [place] [id number] Insurance:MEDICAL BEACHYDOB: [facility] [id number], Number: Repository [place] [id number]: [id number] Date:[id number] BOX (HP) [address] [address]SU: 07/14/2018 Secondary NOT GIVENUNK Marques Insurance:SELF PAY [facility] Number: Effective Repository Date:2018-07-14 07/10/2018 MYLES T Primary MYLES Modi [place] [id number] Insurance:MEDICAL BEACHYDOB: Community [facility] [facility] [id number] Number: Repository [id number]: [phone] [id number] [phone] () Date:[id number] [address]HF: 07/10/2018 Secondary NOT GIVENUNK Marques Insurance:SELF PAY [facility] Number: Effective Repository Date:2018-07-10 11/12/2017 MYLES Modi Primary Insurance:[facility] MYLES Modi [place] [id number] 07/29 E [facility] BEACHYDOB: [facility] MAIN Number: [id number] [id number] Repository [address]Thu: 330) Date:3760-45-13[phone] () [address] [place] [address]BS: 11/12/2017 Secondary NOT GIVENUNK [place] Insurance:SELF PAY [facility] Number: Effective Repository Date:2017-11-12
== END 2018-08-17 16:18 | disposition home or self-care (01) ==
PROVIDERS: Emergency Provider Emergency Medicine
DX: K29.00 Acute gastritis without bleeding (principal); R11.2 Nausea with vomiting, unspecified; K21.9 Gastro-esophageal reflux disease without esophagitis; Z72.0 Tobacco use
CPT/HCPCS: 99285; A4216; J2405; J3490

== ENCOUNTER 2018-12-06 08:15 | Emergency (ER) | payer SELFPAY ==
[2018-12-06 08:15] VITALS: BP 122/71; PULSE 57; RESP 18; TEMP 36.4; O2SAT 99; BMI 19.0
[2018-12-06 08:18] VITALS: TEMP 36.4
--- NOTE | 2018-12-06 08:28 | ED.VISSUMM ---
- ER Visit Summary Date of Service: 12/06/18 Chief Complaint: Right lower dental pain History of Present Illness: The patient is a 37 M who presents for pain the right lower molar since yesterday. Patient has dental decay and has a tooth he needs pulled. This is a second time he has had severe pain related to the tooth. Pain radiates into his right ear and right side of his neck. He has not taken any medication for the pain. No measured fever but patient states he felt like he was feverish. No other complaints at this time. Patient is allergic to penicillin and clindamycin. He does smoke. Patient does not have a dentist. Physical Examination: Vital signs: afebrile, hemodynamically stable, no hypoxia on room air General: well nourished, well developed, in no distress Skin: warm, dry, no rash, no pallor HEENT: normocephalic and atraumatic; PERRL, EOMI, TMs are clear and pearly, no erythema dullness or bulging, moist mucous membranes, no posterior oropharyngeal erythema, exudate or swelling, no sublingual edema, no submandibular fullness or tenderness, significant dental decay of the right mandibular molars, no fluctuance, erythema or swelling of the gingiva, no palpable cervical lymphadenopathy but tenderness along the anterior cervical chain, neck is supple, full active range of motion Cardiovascular: regular rate and rhythm without murmurs, no peripheral edema, 2+ pulses all distal extremities Respiratory: No increased work of breathing MSK: Moves all extremities, no deformities, normal strength Neuro: Awake and alert, oriented ?4. No facial droop, sensation and motor function intact and symmetric Test Results: Medications Given Discontinued Medications Naproxen (Naprosyn) 500 mg PO X1 ONE Stop: 12/06/18 08:40 Last Admin: 12/06/18 08:44 Dose: 500 mg Emergency Department Course and Treatment: Patient was given naproxen for pain. There is no noted abscess that would be amenable to drainage. Patient has no facial swelling. Because of the significant dental decay and the pain radiating into the ear and into the neck, patient was started on antibiotics for concern for periapical abscess. Patient was given prescription for naproxen and doxycycline, as he is allergic to both penicillin and clindamycin. Patient was discharged home with a list of dental clinics and advised to call tomorrow to make an appointment for as soon as possible. Treatment Plan: [] Disposition: [] Impression: odontalgia, concern for dental infection This note was generated with [employer] dictation software. It may contain incorrect words, spelling, and punctuation that were not noted in review of the chart prior to signing ED Disposition - Plan for ED Patient: Instructions: ED Tooth Pain Prescriptions: Naproxen [Naprosyn] 500 mg PO BID PRN #20 tab Doxycycline 100 mg PO BID #20 cap Referrals: Care Physician,No Primary [Primary Care Provider] - Additional Instructions: Please follow-up as soon as possible with 1 of the dentists on the list of clinics that was provided to you. Use naproxen as needed for pain. Take the antibiotic twice daily as prescribed for the full course, even if you feel better before the antibiotic is complete. If you have any worsening of your condition or any new concerning symptoms, please return immediately to the emergency department for another evaluation.
[2018-12-06] MEDS: Naproxen 500 MG Tablet PO (08:44)
[2018-12-06 09:03] VITALS: BP 125/73; PULSE 83; RESP 16; O2SAT 98
== END 2018-12-06 09:05 | disposition home or self-care (01) ==
PROVIDERS: Emergency Provider Emergency Medicine
DX: K08.89 Other specified disorders of teeth and supporting structures (principal); K02.9 Dental caries, unspecified; Z88.0 Allergy status to penicillin; Z72.0 Tobacco use; J02.9 Acute pharyngitis, unspecified; R11.0 Nausea; H92.01 Otalgia, right ear
CPT/HCPCS: 99283

== ENCOUNTER 2018-12-18 13:54 | Emergency (ER) | payer SELFPAY ==
[2018-12-18 13:54] VITALS: BP 129/82; PULSE 73; RESP 16; TEMP 36.7; O2SAT 99; BMI 18.1
--- NOTE | 2018-12-18 14:20 | ED.VISSUMM ---
- ER Visit Summary Date of Service: 12/18/18 Chief Complaint: Abdominal pain, nausea History of Present Illness: The patient is a 38 M with history of hiatal hernia and prior peptic ulcer presents to the emergency department with abdominal pain and nausea. The patient was admitted in July of this year. He underwent endoscopy done at Dr. Byrd. He was found to have a small hiatal hernia and some irritation consistent with a small ulcer. Patient was treated and was doing better. He is currently not on any medications. He states he just has not gotten them filled. States over the past 3 days, he had a burning pain in his midepigastric area in his left upper quadrant. He is also been nauseated. He had no vomiting. He denies any blood in his bowel movements. He states this is just how the pain started. Physical Examination: Vital signs reviewed General: Well-nourished, well-developed Head: Normocephalic, atraumatic Eyes: Pupils equal and reactive, extraocular muscles intact Neck, supple, no lymphadenopathy Heart: Regular rate and rhythm Respiratory: No distress, clear bilaterally Abdomen: Soft, nontender, nondistended, no peritoneal signs Back: Nontender Extremities: Nontender, no edema, no cords Skin: Normal color no rash Neuro: Alert and oriented, no focal or lateralizing deficits Test Results: [] Emergency Department Course and Treatment: The patient has pain in his midepigastric area into his left upper quadrant. He also has symptoms of dyspepsia. IV was established. He was given fluids and antiemetics. He is also given a GI cocktail and had almost total resolution of his symptoms. Labs were obtained and were unremarkable. At this time, I do not suspect a dangerous process. I am going to continue the patient on Pepcid and Carafate. He will be discharged home. Treatment Plan: [] Disposition: Discharge Impression: 1. Epigastric abdominal pain This note was generated with [employer] dictation software. It may contain incorrect words, spelling, and punctuation that were not noted in review of the chart prior to signing ED Disposition - Plan for ED Patient: Instructions: ED PUD Vs Gastritis Prescriptions: Famotidine [Pepcid] 20 mg PO BID #28 tab Sucralfate [Carafate] 1 gm PO 4X/DAY #60 tab Referrals: Care Physician,No Primary [Primary Care Provider] -
[2018-12-18] MEDS: 0.9% Normal Saline 1,000 ML 1000 ML IV (14:25)
[2018-12-18] MEDS: Ondansetron 4 MG/2 ML Vial IV (14:25)
[2018-12-18] MEDS: Ketorolac 30 MG/ML Syringe IV (14:26)
[2018-12-18] MEDS: Mag Hydrox/Al Hydrox/Simeth 30 ML UDC PO (14:26)
[2018-12-18 14:34] LABS: Absolute Neutrophil Count 3.6 X10^3/uL (2.0-7.7); Basophil# 0.02 X10^3/uL; Basophil% 0.3 % (0-1); Eosinophil# 0.05 X10^3/uL; Eosinophils% 0.9 % (0-5); Hematocrit 40.8 % (40-54); Hemoglobin 14.3 g/dl (13.0-16.5); Lymphocyte % 27.5 % (19-41); Mean Corpuscular Hgb 29.5 pg (27.0-32.0); Mean Corpuscular Volume 84.1 fL (80-94); Mean Platelet Vol. 9.1 fl (6.2-12.0); Monocyte% 8.6 % (0-10); Neutrophil # 3.64 X10^3/uL (2.7-7.7); Neutrophil % 62.5 % (47-70); POSITIVE COUNT NO; POSITIVE DIFFERENTIAL NO; POSITIVE MORPHOLOGY NO; Platelet Count 266 K/mm3 (150-450); RBC Distribution Width CV 12.4 % (11.6-14.6); RBC Distribution Width SD 37.5 fl (35.1-43.9); Red Blood Count 4.85 M/mm3 (4.6-6.2); White Blood Count 5.8 K/mm3 (4.4-11.0)
[2018-12-18 14:41] LABS: ALB/GLOB Ratio 1.1 RATIO (0.9-2.4); AST(SGOT) 14 U/L (15-37); Alanine Aminotransfer ALT/SGPT 22 U/L (16-61); Albumin, Serum 3.9 g/dL (3.2-5.0); Alkaline Phosphatase 69 U/L (45-117); Anion Gap 4 (5-15); BUN 14 mg/dL (7-18); BUN/Creat Ratio 12.5 RATIO (10-20); Calcium,Total 8.3 mg/dL (8.5-10.1); Chloride 103 mmol/L (98-107); Creatinine, Serum 1.12 mg/dL (0.70-1.30); EST Glomerular Filtration Rate 78 mL/min (>60); Est Glom Filt Rate - Afr Amer 94 mL/min (>60); Globulin 3.5 g/dL (2.2-4.2); Glucose 99 mg/dL (74-106); Lipase 66 U/L (73-393); Potassium 3.9 mmol/L (3.5-5.1); Protein, Total 7.4 g/dL (6.4-8.2); Sodium Level 137 mmol/L (136-145)
[2018-12-18 15:09] VITALS: BP 129/87; PULSE 78; RESP 16; O2SAT 98
== END 2018-12-18 15:10 | disposition home or self-care (01) ==
LOC: ED 14:41
PROVIDERS: Emergency Provider Emergency Medicine
DX: K29.70 Gastritis, unspecified, without bleeding (principal); K44.9 Diaphragmatic hernia without obstruction or gangrene; K21.9 Gastro-esophageal reflux disease without esophagitis; Z72.0 Tobacco use
CPT/HCPCS: 80053; 83690; 85025; 96361; 96374; 96375; 99283; J7030; A4216; J2405

== ENCOUNTER 2020-02-04 13:55 | Emergency (ER) | payer SELFPAY ==
[2020-02-04 13:57] VITALS: BP 118/73; PULSE 85; RESP 16; TEMP 36.8; O2SAT 99; BMI 19.6
--- NOTE | 2020-02-04 15:20 | ED.VIS.URI ---
History of Present Illness Chief Complaint: Ear Problem Informant: Patient Onset: Weeks - 1 Context: Gradual Onset Timing: Continuous Quality: sore Location: left ear Current Severity: Moderate Maximum Severity: Moderate Worsened by: - - touching ear, putting OTC drops in Relieved by: - - nothing Associated Symptoms: Negative for: Nasal Congestion, Headache, Sinus Pressure, Nausea, Vomiting, Shortness of Breath, Nonproductive cough Narrative: Patient states he is having trouble hearing, pain in his left ear, and he has a sensation that there is something in there although he put nothing in there except for ztrt-xeu-vgwbecb drops today which made his ear burn and feel worse. No cold symptoms or allergy symptoms recently. He is healthy and does not have a doctor. No symptoms in his right ear. He wears a headset at work, it is over the right ear, not in it, and nothing goes into were on his left ear. He has no neck or throat pain. Past Medical History - Allergies and Home Meds Allergies/Adverse Reactions: Allergies bee venom protein (honey bee) Allergy (Verified 02/04/20 13:57) Rash clindamycin Allergy (Verified 02/04/20 13:57) Rash Penicillins Allergy (Verified 02/04/20 13:57) Rash GETS A FEVER WELL Primary Care Physician: Care Physician,No Primary [Primary Care Provider] - Past Medical History: None Surgical History: no surgical history Smoking Status: Current every day smoker - Family History Maternal Family History: Reports: No pertinent history Review of Systems General: Denies: Chills, Fever, Sweats Eyes: Denies: Visual changes - bilaterally, Diplopia ENT: Reports: Left ear pain, - - Decreased hearing left ear. No tinnitus.. Denies: Rhinorrhea, Sore throat Musculoskeletal: Denies: Neck pain, Back pain Skin: Denies: Rash, Wounds Neurological: Reports: - - No vertigo/dizziness. Denies: Headache, Weakness, Numbness Physical Exam Vital Signs/Narrative: Vital Signs Temp Pulse Resp BP Pulse Ox 02/04/20 13:57 98.3 F 85 16 118/73 99 Inital Vital Signs reviewed: Yes General: Well nourished, Well developed, - - Well-appearing no acute distress. Anxious. Head: Normocephalic, Atraumatic Eyes: Perrl, EOMI Ears: TM's clear, Pain with Movement of Left Tragus - Mild-moderate, including manipulation of the pinna. Mild swelling and erythema of the left EAC. Right normal., - - Left TM initially obscured by soft cerumen impaction. No other foreign body seen. Nose: Normal Inspection, No Rhinorrhea. Negative for: Purulent Drainage Mouth/Throat: Normal Inspection, No Posterior Erythema Neck: Supple, Nontender, No Lymphadenopathy, No Meningismus Skin: Normal color, No rash, No Trauma Neurological: Alert, Oriented x3, Cranial nerves II-XII grossly intact, Normal Strength, Normal Sensation, Normal Gait Diagnostic/Tx/Re-eval - Medical Decision Making I gently physically removed cerumen from the left EAC with a ear scoop, it was very soft, so after removing a small amount, I had nursing irrigate the rest out which was successful. On reexamination his TM is not perforated or infected. He does have some mild discomfort with speculum exam, before and after cerumen removal. I think he has a coincidental cerumen impaction along with some otitis externa. He states that occasionally his ears popping indicating possibility of eustachian tube dysfunction, but he does not have an otitis media at this time. I gave him recommendations for that. He was given a prescription for Cortisporin otic suspension and instructions for use and he was referred to the next doctor on the unassigned list, and registration approached him about getting Medicaid. ED Disposition - Plan for ED Patient: Disposition: Home or Assisted Living Diagnosis: Impacted cerumen of left ear, Otitis externa of left ear Instructions: ED Otitis Externa, ED Cerumen Impaction Treated Prescriptions: Neomycin/Polymyxin B/Hydrocort [Hnpdhuld-Ahbrihwse-Ve Ear Susp] 4 drp LEFT EAR TID PRN 7 Days #1 drops.susp PRN Reason: ear infection Transmission Status: Pending to [facility]/pharmacy #[id number] Referrals: Fast,Jeanne, DO [NON-STAFF] - 1 Week if not improving Additional Instructions: If you continue to have popping in your ear, you may either get vjbu-mbk-dqliooe fluticasone and use it as instructed for 1 to 2 weeks, or you may use oral decongestants, or oxymetazoline which is like Afrin nasal spray. Use as directed on the bottle/box.
[2020-02-04 15:25] VITALS: RESP 16
== END 2020-02-04 15:29 | disposition home or self-care (01) ==
PROVIDERS: Emergency Provider Emergency Medicine
DX: H60.92 Unspecified otitis externa, left ear (principal); H61.22 Impacted cerumen, left ear; F17.200 Nicotine dependence, unspecified, uncomplicated; Z88.0 Allergy status to penicillin
CPT/HCPCS: 99282

== ENCOUNTER 2020-04-15 10:53 | Emergency (ER) | payer SELFPAY ==
[2020-04-15 10:54] VITALS: BP 134/84; PULSE 99; RESP 17; TEMP 36.3; O2SAT 100; BMI 17.9
--- NOTE | 2020-04-15 11:23 | ED.DCSUM_ITS ---
History of Present Illness Chief Complaint: Abd Pain Informant: Patient Narrative: 39-year-old male presenting with nausea, vomiting, diarrhea, fevers, chills, cough. No loss of smell. He states his symptoms started . He has been able to hold down some fluids. He is making urine. His biggest complaint is profuse diarrhea. He denies any change in diet. He states he works at [employer] but otherwise stays home and has quarantined. - Past Medical History (1) Priscila-Horn tear Status: Acute Past Medical History - Allergies and Home Meds Allergies/Adverse Reactions: Allergies bee venom protein (honey bee) Allergy (Verified 04/15/20 10:54) Rash clindamycin Allergy (Verified 04/15/20 10:54) Rash Penicillins Allergy (Verified 04/15/20 10:54) Rash GETS A FEVER WELL Primary Care Physician: Care Physician,No Primary [Primary Care Provider] - Prior records reviewed: Yes Past Medical History: - - Reviewed and problem list Surgical History: no surgical history Lives: Alone Smoking Status: Current every day smoker Alcohol: None Drugs: None - Family History Maternal Family History: Reports: No pertinent history Review of Systems General: Reports: Chills, Fever Eyes: Denies: Visual changes - bilaterally, Diplopia ENT: Reports: Sore throat. Denies: Rhinorrhea Cardiovascular: Denies: Chest pain, Palpitations Respiratory: Reports: Cough. Denies: Dyspnea, Dyspnea on exertion Gastrointestinal: Reports: Abdominal pain, Nausea, Vomiting, Diarrhea Musculoskeletal: Reports: Myalgias Skin: Denies: Rash, Abscess Physical Exam Vital Signs/Narrative: Vital Signs Temp Pulse Resp BP Pulse Ox 04/15/20 10:54 97.4 F L 99 17 134/84 H 100 Inital Vital Signs reviewed: Yes General: Well nourished, No Acute Distress Head: Normocephalic Eyes: Perrl, EOMI ENT: Moist mucous membranes, No rhinorrhea Cardiovascular: Regular rate, Regular rhythm Respiratory: No distress, CTA bilaterally Abdomen: Soft, Nontender Extremities: Nontender, No edema Skin: Normal color, No rash Neurological: Alert, Oriented x3, Cranial nerves II-XII grossly intact Psychological: Normal affect, Normal Mood Diagnostic/Tx/Re-eval - Medical Decision Making 39-year-old male presents with viral syndrome. He is concerned he has COVID?19. His vital signs are stable he is afebrile. He is nontoxic-appearing. He is able to hold down food and fluids however he complains of a lot of diarrhea. I counseled him that I will give him nausea medication for home and he should try to keep hydrating and let the diarrhea run its course. He does not appear to be overtly dehydrated here. Patient was given quarantine precautions as well as strict return precautions. Patient is stable for discharge. Impression: Vomiting Diarrhea Viral syndrome ED Disposition - Plan for ED Patient: Disposition: Home or Assisted Living Instructions: ED Viral Syndrome Prescriptions: Famotidine [Pepcid] 20 mg PO BID #14 tab Prescription Printed Ondansetron [Zofran Odt] 4 mg PO Q8H PRN PRN #20 tab PRN Reason: Nausea Prescription Printed Referrals: Care Physician,No Primary [Primary Care Provider] -
[2020-04-15 12:04] VITALS: BP 124/68; PULSE 64; RESP 15; TEMP 36.4; O2SAT 99
[2020-04-15] MEDS: Ondansetron ODT 4 MG Tablet 8 MG PO (12:09)
== END 2020-04-15 12:10 | disposition home or self-care (01) ==
LOC: ED 11:28
PROVIDERS: Emergency Provider Student in an Organized Health Care Education/Training Program
DX: B34.9 Viral infection, unspecified (principal); R19.7 Diarrhea, unspecified; R11.2 Nausea with vomiting, unspecified; R05 Cough; R10.9 Unspecified abdominal pain; F17.200 Nicotine dependence, unspecified, uncomplicated; Z87.19 Personal history of other diseases of the digestive system; Z88.0 Allergy status to penicillin
CPT/HCPCS: 87635; 99283; C9803; U0003

== ENCOUNTER 2020-08-29 13:16 | Emergency (ER) | payer SELFPAY ==
[2020-08-29 13:17] VITALS: BP 122/78; PULSE 85; RESP 16; TEMP 37.1; O2SAT 100; BMI 18.0
--- NOTE | 2020-08-29 13:29 | ED.VIS.GEN ---
History of Present Illness Chief Complaint: Abd Pain Informant: Patient Narrative: 39-year-old male states that early Friday morning he woke with vomiting and diarrhea. Since then he really has not had much to eat other than some chicken noodle soup. Yesterday he ate some pizza in the evening and diarrhea came back. He states that he is throwing up a large amount of acid. He states his left upper abdomen hurts and believes he has another stomach ulcer. He states he has had these in the past. He reports that he is no longer taking any antacid medicines but restarted Pepcid when this occurred. No black or bloody stools. No hematemesis. - Past Medical History (1) Priscila-Horn tear Status: Resolved Past Medical History - Allergies and Home Meds Allergies/Adverse Reactions: Allergies bee venom protein (honey bee) Allergy (Verified 08/29/20 13:16) Rash clindamycin Allergy (Verified 08/29/20 13:16) Rash Penicillins Allergy (Verified 08/29/20 13:16) Rash GETS A FEVER WELL Primary Care Physician: Care Physician,No Primary [Primary Care Provider] - Surgical History: no surgical history, - - EGD Smoking Status: Current every day smoker Drugs: None - Family History Maternal Family History: Reports: No pertinent history Review of Systems General: Denies: Chills, Fever, Sweats Eyes: Denies: Visual changes - bilaterally, Diplopia ENT: Denies: Rhinorrhea, Sore throat Cardiovascular: Denies: Chest pain, Palpitations Respiratory: Denies: Dyspnea, Cough, Dyspnea on exertion Gastrointestinal: Reports: Abdominal pain, Nausea, Vomiting, Diarrhea. Denies: Melena, Hematochezia Genitourinary: Denies: Dysuria, Hematuria, Frequency Musculoskeletal: Denies: Back pain, Extremity Pain Skin: Denies: Rash, Wounds Neurological: Denies: Headache, Weakness, Numbness Physical Exam Vital Signs/Narrative: Vital Signs Temp Pulse Resp BP Pulse Ox 08/29/20 13:17 98.7 F 85 16 122/78 H 100 Inital Vital Signs reviewed: Yes General: Well nourished, Well developed, No Acute Distress Head: Normocephalic, Atraumatic Eyes: Perrl, EOMI ENT: Moist mucous membranes, No rhinorrhea Neck: Supple, Nontender Cardiovascular: Regular rate, Regular rhythm, No murmurs Respiratory: No distress, CTA bilaterally, Chest nontender Abdomen: Soft, Nondistended, Normal bowel sounds, Tender - Mild tenderness palpation in the left upper quadrant without guarding or rebound. The abdomen appears nonsurgical. Back: Nontender, Normal Inspection Extremities: Nontender, No edema Skin: Normal color, No rash Neurological: Alert, Oriented x3, Cranial nerves II-XII grossly intact, Normal Strength, Normal Sensation Psychological: Normal affect, Normal Mood Diagnostic/Tx/Re-eval - Medical Decision Making Patient has normal vital signs. Clinically appears well-hydrated. He most likely has a gastroenteritis which is led to gastritis. I will place him on Protonix and Carafate. I will write for Zofran. He was advised that if he can eat something to perhaps try something easier than pizza like toast or a banana. At this point I do not think blood work is going to add much to his care. I do not feel that the exam and history require a CT or advanced imaging. Return if worsening or concerns ED Disposition - Plan for ED Patient: Disposition: Home or Assisted Living Diagnosis: Gastroenteritis, Gastritis Instructions: ED Gastritis (Adult), ED Gastroenteritis, Viral (Adult) Prescriptions: Sucralfate [Carafate] 1 gm PO 4X/DAY 14 Days #56 tab Prescription Printed Pantoprazole Sodium [Protonix] 20 mg PO BID 30 Days #60 tab Prescription Printed Ondansetron [Zofran Odt] 4 mg PO Q6H PRN PRN #16 tab PRN Reason: Nausea Prescription Printed Referrals: Ashvin Fitzpatrick MD [STAFF PHYSICIAN] - (as needed for primary care)
[2020-08-29 13:49] VITALS: BP 107/73; PULSE 63; RESP 16; O2SAT 100
== END 2020-08-29 13:51 | disposition home or self-care (01) ==
PROVIDERS: Emergency Provider Emergency Medicine
DX: K29.70 Gastritis, unspecified, without bleeding (principal); K52.9 Noninfective gastroenteritis and colitis, unspecified; F17.200 Nicotine dependence, unspecified, uncomplicated; Z87.19 Personal history of other diseases of the digestive system; Z88.0 Allergy status to penicillin
CPT/HCPCS: 99282

== ENCOUNTER 2021-03-03 13:54 | Emergency (ER) | payer OTHER, SELFPAY ==
[2021-03-03 13:55] VITALS: BP 133/91; PULSE 85; RESP 16; TEMP 37.6; O2SAT 99; BMI 19.6
--- NOTE | 2021-03-03 14:24 | EX.ED.DYSGE1 ---
HPI History of Present Illness Chief Complaint: Wound Informant: patient Onset/Context/Timing Onset: Days Context: Gradual Onset Timing: Continuous Location: Left great toe Worsened by: Touch and movement Associated Symptoms Associated Symptoms: Itching to the area and swelling PFSH PFSH Home Medications NK 03/03/21 [History Last Taken Unknown] cephalexin 500 mg PO Q6 #40 capsule 03/03/21 [Rx Last Taken Unknown] sulfamethoxazole-trimethoprim [Bactrim DS] 1 tab PO Q12H #20 tab 03/03/21 [Rx Last Taken Unknown] Allergy/AdvReac Type Severity Reaction Status Date / Time bee venom protein (honey bee) Allergy Rash Verified 03/03/21 13:55 clindamycin Allergy Rash Verified 03/03/21 13:55 Penicillins Allergy Rash Verified 03/03/21 13:55 Social History Smoking Status: Current every day smoker tobacco type: cigarettes ROS ROS ED Constitutional Constitutional ED: Denies chills or fever(s) Eyes Eyes: Reports systems reviewed and no addt'l complaints, except as documented ENT ENT ED: Reports systems reviewed and no addt'l complaints, except as documented Cardiovascular Cardiovascular: Reports systems reviewed and no addt'l complaints, except as documented Respiratory/Chest Respiratory/Chest: Reports systems reviewed and no addt'l complaints, except as documented Gastrointestinal Gastrointestinal: Reports systems reviewed and no addt'l complaints, except as documented Genitourinary Genitourinary ED: Reports systems reviewed and no addt'l complaints, except as documented Musculoskeletal Musculoskeletal: Reports systems reviewed and no addt'l complaints, except as documented Integumentary Reports abscess and rash Neurologic Neurologic: Reports systems reviewed and no addt'l complaints, except as documented Psychiatric Psychiatric: Reports systems reviewed and no addt'l complaints, except as documented Endocrine Endocrinology: Reports systems reviewed and no addt'l complaints, except as documented Hematologic/Lymphatic Hematologic/Lymphatic: Reports systems reviewed and no addt'l complaints, except as documented Allergic/Immunologic Allergic/Immunologic ED: Reports systems reviewed and no addt'l complaints, except as documented EXAM Physical Exam Const Vital Signs: 03/03/21 13:55 Temperature 99.6 F H Temperature Source Temporal Pulse Rate 85 Respiratory Rate 16 Blood Pressure 133/91 H Blood Pressure Mean 105 Pulse Ox 99 Oxygen Delivery Method Room Air Positive well nourished and well developed General Appearance ED: active, cooperative and well developed HEENT Reports normocephalic and head/scalp atraumatic Eyes EOMs intact bilaterally Neck full ROM Resp normal respiratory effort Extremity Negative for normal to inspection Neuro no focal motor deficits and no sensory deficits noted Psych mental status grossly normal Skin No no wounds Skin Narrative: Erythema and fluctuance along the base of the left great toenail. No ingrown toenail. MDM MDM MDM Narrative Medical decision making narrative: Patient has a paronychia. Patient gave verbal consent to incision and drainage. Digital block was performed of the great toe. 4 cc of lidocaine 1% used, and anesthesia was achieved. Wound was incised and pus was expressed. Left open. Nothing to suggest deep infection, felon, osteomyelitis. He was started on antibiotics and pain medication. Outpatient follow-up. Return if worse right away. Discharge Plan Triage Chief Complaint: Wound ED Provider: Jose Antonio Ma Dx/Rx/DC Orders Clinical Impression: Paronychia Instructions: ED Paronychia of the Finger or Toe Prescriptions: New sulfamethoxazole-trimethoprim [Bactrim DS] 800-160 mg tablet 1 tab PO Q12H Qty: 20 RF: 0 cephalexin 500 mg capsule 500 mg PO Q6 Qty: 40 RF: 0 No Action NK RF: 0 Primary Care Provider: Care Physician,No Primary Referrals: Sravani Loo [NON-STAFF] - Care Physician,No Primary [Primary Care Provider] - Disposition Disposition: Home, Self Care
[2021-03-03] MEDS: Cephalexin 250 MG Capsule 500 MG PO (15:09)
[2021-03-03] MEDS: Smz/Tmp Ds Tablet 1 TABLET PO (15:09)
[2021-03-03] MEDS: Lidocaine 1% (20 ml mdv) 20 ML Vial INFILT (15:09)
[2021-03-03] MEDS: HYDROcodone Bitartrate/Apap 5/325 Tablet PO (15:10)
== END 2021-03-03 16:17 | disposition home or self-care (01) ==
PROVIDERS: Emergency Provider Emergency Medicine
DX: L03.032 Cellulitis of left toe (principal); F17.210 Nicotine dependence, cigarettes, uncomplicated
CPT/HCPCS: 10060; 99284

== ENCOUNTER 2021-08-20 11:35 | Emergency (ER) | payer OTHER, SELFPAY ==
[2021-08-20 11:36] VITALS: BP 113/80; PULSE 95; RESP 18; TEMP 37.7; O2SAT 100; BMI 19.0
[2021-08-20 12:38] VITALS: O2SAT 93
--- NOTE | 2021-08-20 13:03 | EX.ED.DYSGE1 ---
HPI History of Present Illness Chief Complaint: Cough Informant: patient Narrative Narrative: Patient has mild sore throat, nasal congestion, headache, myalgias, nonproductive cough, nausea without diarrhea or vomiting, decreased appetite, fevers and chills. He has had these for about 8 or 9 days. He has not had any Covid vaccine and he has known documented exposure to somebody with Covid. He is not actually short of breath but he is coughing. Nothing makes his symptoms better or worse. PFSH PFSH Medical History Smoker Home Medications naproxen 500 mg PO BID #14 tab 08/20/21 [Rx Last Taken Unknown] ondansetron 4 mg PO Q8H PRN #10 tab 08/20/21 [Rx Last Taken Unknown] Allergy/AdvReac Type Severity Reaction Status Date / Time bee venom protein (honey bee) Allergy Rash Verified 08/20/21 11:35 clindamycin Allergy Rash Verified 08/20/21 11:35 Penicillins Allergy Rash Verified 08/20/21 11:35 Social History Smoking Status: Current every day smoker tobacco type: cigarettes ROS ROS ED Constitutional Constitutional ED: Reports fever(s), subjective and sweats Eyes Eyes: Denies blurry vision ENT ENT ED: Reports rhinorrhea; Denies sore throat Cardiovascular Cardiovascular: Denies chest pain or palpitations Respiratory/Chest Respiratory/Chest: Reports cough; Denies dyspnea or sputum Gastrointestinal Gastrointestinal: Reports nausea; Denies abdominal pain, diarrhea or vomiting Genitourinary Genitourinary ED: Denies dysuria or hematuria Musculoskeletal Musculoskeletal: Reports arthralgias and myalgias Integumentary Denies rash Neurologic Neurologic: Reports headache(s); Denies paresthesias or weakness Psychiatric Psychiatric: Denies anxiety or depression Endocrine Endocrinology: Denies polydipsia or polyuria Allergic/Immunologic Allergic/Immunologic ED: Denies mouth swelling or urticaria EXAM Physical Exam Const Vital Signs: 08/20/21 11:36 08/20/21 11:40 08/20/21 12:38 Temperature 99.9 F H Temperature Source Temporal Pulse Rate 95 Respiratory Rate 18 Respiratory Effort Normal Non-Labored Respiratory Depth Normal Respiratory Pattern Normal Blood Pressure 113/80 Blood Pressure Mean 91 Pulse Ox 100 93 Oxygen Delivery Method Room Air Room Air Positive well nourished and well developed General Appearance ED: well developed; Negative for cyanotic or diaphoretic HEENT tenderness; Negative for trauma Eyes PERRL and EOMs intact bilaterally General Eye ED: Negative for pale conjunctiva or scleral icterus Neck no JVD Chest Wall palpation of chest normal Resp normal respiratory effort and clear to auscultation bilaterally Resp Narrative: His lungs sound totally clear. Effort and Inspection: Negative for pain with movement Auscultation: Negative for rales, rhonchi or wheezes Cardio regular rate, regular rhythm and no murmurs GI normal to inspection, nondistended, normoactive bowel sounds, non-tender and non-distended Palpation: soft Back/Spine no CVA tenderness Extremity normal to inspection General Extremety ED: Negative for edema or tenderness General Extremity: Negative for edema Neuro oriented x3 Sensorium / Orientation: alert Psych mental status grossly normal Skin no rashes or lesions noted MDM MDM MDM Narrative Medical decision making narrative: This pain has essentially all symptoms of Covid. He has known exposure to Covid. He has not had Covid vaccine. He is not hypoxic. His lungs are clear. He has nausea but no vomiting or diarrhea and is able to eat and drink. I explained that we will get him something for the nausea and muscle aches. I will send off a Covid PCR. Since he is beyond 7 days the antigen test is less likely to be positive. I do not think he requires blood work or x-ray at this time. Discharge Plan Triage Chief Complaint: Cough Other Complaint: Fever ED Provider: Derrek Squires Dx/Rx/DC Orders Clinical Impression: Close exposure to 2019-nCoV, Acute viral syndrome Instructions: Coronavirus Disease 2019 (COVID-19): Caring for Yourself or Others Prescriptions: New ondansetron 4 mg tablet,disintegrating 4 mg PO Q8H PRN (Reason: nausea and vomiting) Qty: 10 RF: 0 naproxen 500 MG tablet 500 mg PO BID Qty: 14 RF: 0 Primary Care Provider: Care Physician,No Primary Referrals: Lisa Mcqueen MD [STAFF PHYSICIAN] - 1 Week if not improving Care Physician,No Primary [Primary Care Provider] - Disposition Disposition: Home, Self Care
[2021-08-20] MEDS: Ondansetron ODT 4 MG Tablet PO (13:17)
== END 2021-08-20 13:19 | disposition home or self-care (01) ==
PROVIDERS: Emergency Provider Emergency Medicine; Visit Provider Emergency Medicine
DX: U07.1 COVID-19 (principal); F17.210 Nicotine dependence, cigarettes, uncomplicated
CPT/HCPCS: 87635; 99283; U0003; U0005

== ENCOUNTER 2022-07-07 11:52 | Emergency (ER) | payer OTHER, SELFPAY ==
[2022-07-07 11:52] VITALS: BP 132/100; PULSE 70; RESP 16; TEMP 36.4; O2SAT 100; BMI 19.0
--- NOTE | 2022-07-07 12:01 | EX.ED.VIS.UR ---
HPI HPI - URI History of Present Illness Chief Complaint: Ear Problem Detail of Chief Complaint: Atraumatic right ear discomfort Informant: patient Onset/Context/Timing Onset: Days Context: Gradual Onset Current Severity: Mild Maximum Severity: Mild Associated Symptoms Associated Symptoms: Negative for Nasal Congestion, Headache, Sinus Pressure, Myalgias, Nausea, Vomiting, Diarrhea, Shortness of Breath, Chest Pain, Nonproductive cough, Hemoptysis or Productive Cough Narrative Narrative: 41-year-old gentleman complaining of right ear discomfort since Friday. No trauma. He has been using eardrops without any relief. No fever or chills. No cough or sore throat. Left ear is unremarkable. Prior similar symptoms: Yes Recent Illness/Hospitalization: No ROS ROS ED ROS Narrative Right earache. Review of Systems ROS Unobtainable: Denies due to encephalopathy Constitutional Constitutional ED: Denies chills or fever(s) Eyes Eyes: Denies blurry vision ENT ENT ED: Reports ear pain; Denies rhinorrhea or sore throat Cardiovascular Cardiovascular: Denies chest pain or palpitations Respiratory/Chest Respiratory/Chest: Denies cough or dyspnea Gastrointestinal Gastrointestinal: Denies abdominal pain Genitourinary Genitourinary ED: Denies dysuria or hematuria Musculoskeletal Musculoskeletal: Denies arthralgias Integumentary Denies abscess or Abrasions Neurologic Neurologic: Denies headache(s) Psychiatric Psychiatric: Denies anxiety or depression Endocrine Endocrinology: Denies cold intolerance Hematologic/Lymphatic Hematologic/Lymphatic: Denies easy bleeding Allergic/Immunologic Allergic/Immunologic ED: Denies mouth swelling or tongue swelling PFSH PFSH Medical History Abrasion of right hand Contusion of right hand Smoker Allergy/AdvReac Type Severity Reaction Status Date / Time bee venom protein (honey bee) Allergy Rash Verified 05/30/22 08:40 clindamycin Allergy Rash Verified 05/30/22 08:40 Penicillins Allergy Rash Verified 05/30/22 08:40 Social History Smoking Status: Current every day smoker tobacco type: cigarettes EXAM Physical Exam Narrative Exam Narrative: 41-year-old male no acute distress. Vital signs stable afebrile. H EENT exam posterior pharynx normal. No erythema or exudate. Left TM and canal normal. Right canal impacted with wax. I cannot see the eardrum. This will be irrigated and really examined. Lungs clear. Heart regular rhythm. Abdomen soft nontender. Const Vital Signs: 07/07/22 11:52 Temperature 97.6 F L Temperature Source Temporal Pulse Rate 70 Respiratory Rate 16 Blood Pressure 132/100 H Blood Pressure Mean 110 Pulse Ox 100 Oxygen Delivery Method Room Air Positive well nourished and well developed General Appearance ED: well developed; Negative for pallor HEENT Reports moist mucous membranes and dry mucous membranes HEENT Narrative: Right ear canal obscured by wax. normocephalic and atraumatic Face and Sinus: Negative for sinus tenderness, maxillary instability or facial tenderness Mouth ED: Yes dry mucous membranes Mouth: dry mucous membranes Throat: posterior oropharynx normal Eyes PERRL and EOMs intact bilaterally General Eye ED: Negative for pale conjunctiva or scleral icterus Neck no lymphadenopathy, supple, no meningeal signs and no JVD General: Negative for anterior neck swelling or lymphadenopathy Resp normal respiratory effort and clear to auscultation bilaterally Effort and Inspection: Negative for retractions Auscultation: Negative for rales, rhonchi or wheezes Cardio S1 normal heart sound, S2 normal heart sound and no murmurs Rate: regular rate Rhythm: regular rhythm GI non-tender, non-distended and no masses Inspection: Negative for abdominal distention Auscultation: normoactive bowel sounds Palpation: soft; Negative for tender Back/Spine no CVA tenderness and normal ROM General Back: Negative for CVA tenderness Cervical Spine: Negative for cervical spine tenderness Thoracic Spine / Upper Back: Negative for thoracic spinal tenderness Lumbar Spine / Lower Back: Negative for lumbar spinal tenderness Sacrum: Negative for tenderness Extremity normal to inspection and full ROM General Extremety ED: Negative for cyanosis or tenderness General Extremity: Negative for cyanosis Neuro oriented x3, CN's II-XII intact bilaterally and no sensory deficits noted Sensorium / Orientation: alert, oriented to person, oriented to place and oriented to time; Negative for orientation impaired, lethargic, stuporous or other Motor Exam: strength 5/5 throughout Psych mental status grossly normal Appearance: Negative for other Attitude: No agitated Mood & Affect: Negative for depressed, anxious or tearful Skin General Skin Exam: Negative for jaundice or pallor Lesions: no lesions Rashes: no rashes Trauma: Negative for abrasion or laceration MDM MDM MDM Narrative Medical decision making narrative: On [id number] male mL cerumen impaction right ear canal. Debrox will place in the right ear and nurses will irrigate all reexamined. Discharge Plan Triage Chief Complaint: Ear Problem ED Provider: Armando Newman Dx/Rx/DC Orders Clinical Impression: Excess ear wax Instructions: ED Cerumen Impaction Treated Primary Care Provider: Irene Physician,Antonieta Primary Referrals: Abdiel Steele MD [Med Staff - Active Staff] - As Needed (As needed if you get wax impaction again. They can clean out their office.) Care Physician,No Primary [Primary Care Provider] - Activity Restrictions/Additional Instructions: Use either Cerumenex or Debrox drops to your right ear to keep the wax down. Follow-up with ENT if this occurs again and they can clean them out.
[2022-07-07] MEDS: Carbamide Peroxide 15 ML Bottle 5 DRP OTIC (12:18)
== END 2022-07-07 12:23 | disposition home or self-care (01) ==
PROVIDERS: Emergency Provider Emergency Medicine; Visit Provider Emergency Medicine
DX: H61.21 Impacted cerumen, right ear (principal); F17.210 Nicotine dependence, cigarettes, uncomplicated
CPT/HCPCS: 99283

== ENCOUNTER 2025-06-15 14:40 | Emergency (ER) | payer OTHER, SELFPAY ==
[2025-06-15 14:42] VITALS: BP 130/104; PULSE 83; RESP 18; TEMP 36.1; O2SAT 100; BMI 17.2
--- NOTE | 2025-06-15 15:12 | EX.ED.GENINJ ---
HPI History of Present Illness Chief Complaint: Head Injury Narrative Narrative: Patient is a 44-year-old male presenting to the emergency department for head injury. Patient reports that he was at work and he metal platform fell on his head. He states that he blacked out. He denies any neck or back pain. Endorses some nausea and a headache. Denies any use of oral anticoagulation. States that his last tetanus shot was a few months ago. Patient denies any other injuries. Tetanus Immunization: <5 years PFSH PFSH Medical History Abrasion of right hand Contusion of right hand Smoker Home Medications ?Medication ?Instructions ?Recorded ?Last Taken ?Type ondansetron HCl 8 mg tablet 8 mg PO Q8H PRN nausea and 09/04/23 Unknown Rx vomiting #14 tabs Allergy/AdvReac Type Severity Reaction Status Date / Time bee venom protein (honey bee) Allergy Rash Verified 06/15/25 14:42 clindamycin Allergy Rash Verified 06/15/25 14:42 Penicillins Allergy Rash Verified 06/15/25 14:42 Social History Smoking Status: Current every day smoker tobacco type: cigarettes ROS ROS ED ROS Narrative See HPI EXAM Physical Exam Narrative Exam Narrative: Vital signs: Reviewed General: Alert and orientedx3. No acute distress. Well appearing. HEENT: Head is normocephalic with a 3 cm linear laceration to the right sided crown of the scalp. No foreign body noted on wound exploration. Sinuses nontender, pupils equal round and reactive. Nares are patent. No septal hematoma. Oropharynx and throat exams normal. No oropharyngeal trauma. Neck: Supple without lymphadenopathy nontender. No midline cervical spinal tenderness to palpation. No step-offs or deformities. Cardiovascular: Regular rate and rhythm, no murmurs. No rubs or gallops. Normal S1 and S2 Respiratory: Clear to auscultation bilaterally. No wheezes, rales, rhonchi Abdominal: Soft and nontender. Normal bowel sounds. No guarding or rebound. Nonsurgical abdomen Extremities: No midline thoracic or lumbar spinal tenderness palpation. No step-offs or deformities. Hips are stable and nontender to palpation. Extremities are atraumatic and nontender to palpation with normal active range of motion. No bruising. Normal range of motion. Normal sensation. Skin: No rash or redness. Neurological: Cranial nerves II through XII are grossly intact. Normal strength and sensation. Normal cerebellar function The rest of the physical exam is unremarkable Const Vital Signs: 06/15/25 14:42 Temperature 97.0 F L Temperature Source Temporal Pulse Rate 83 Respiratory Rate 18 Blood Pressure 130/104 H Blood Pressure Mean 112 Pulse Ox 100 Oxygen Delivery Method Room Air MDM MDM MDM Narrative Medical decision making narrative: Patient is a 44-year-old male presenting to the emergency department for a head injury that occurred at work. Patient was seen and examined. Vitals are stable. Patient resting bed comfortably no acute distress. Given the patient's LOC, will obtain a CT brain. No other traumatic injuries noted. Tetanus is up-to-date from 5 months ago. Wound was copiously irrigated. No foreign bodies noted on exploration of the wound after irrigation. 2% lidocaine with epi was used for anesthetic. 9 rajni were placed in the linear laceration and patient tolerated well. Gauze dressing was placed over top. CT brain was reviewed myself and is normal. Radiology read in agreement. Patient given Tylenol for his headache. Patient was updated on the negative CT findings. He was given wound care instructions including removal of the rajni in 7 to 10 days and keeping the wound clean, dry and intact. He was given Workmen's Comp. follow-up. Patient discharged from the Emergency Department. I do not feel that the patient's evaluation reveals any acute reason for admission at this time. I instructed them to either follow-up with their primary care physician or promptly return to the Emergency Department for reevaluation should symptoms worsen or new symptoms develop. I explained what symptoms would indicate the need to return to the emergency department. Shared decision making was used. The patient voiced understanding of the treatment plan and is agreeable with it. Clinical impression Laceration of scalp Head trauma History & Record Review Discussion w/independent historian: Patient Radiography Diagnostic Testing: Clinical Impression(s) from Imaging Studies Brain CT 06/15/25 15:21 IMPRESSION: NORMAL NONCONTRAST HEAD CT. Reading Location: [id number] Discharge Plan Triage Chief Complaint: Head Injury ED Provider: Mariza Cueto Dx/Rx/DC Orders Clinical Impression: Head trauma, Laceration of scalp Instructions: Concussion Dc, ED Head Injury (Adult), ED Laceration Scalp Stitches or [place] Prescriptions: No Action ondansetron HCl 8 mg tablet 8 mg PO Q8H PRN (Reason: nausea and vomiting) Qty: 14 0RF Primary Care Provider: Care Physician,No Primary Referrals: [facility] [Outside] - As soon as possible Care Physician,No Primary [Primary Care Provider, Medical] Activity Restrictions/Additional Instructions: You need the rajni removed in 7 days. Keep the wound clean and dry. You can follow-up with your primary care doctor or go to any emergency department or urgent care. You can take Tylenol Motrin for pain control. Follow-up with the [facility] as soon as possible. Your evaluation in the Emergency Department did not reveal any acute reason for admission. However, I want to emphasize that you may be early in the course of a disease process or illness even if it is not present. For this reason you should follow-up within 24 hours for reevaluation with either your primary care physician or if necessary back here in the Emergency Department. You should return to the Emergency Department immediately if your symptoms worsen or new symptoms develop. Print Language: Turkmen Disposition Disposition: Home, Self Care
--- NOTE | 2025-06-15 15:21 | CT_ITS ---
PROCEDURE: BRAIN/HEAD WITHOUT CONTRAST 06/15/2025 REASON FOR EXAM: HIT HEAD AT WORK, LOC TECHNIQUE: Procedure Code: CTBR Modality: CT Procedure: BRAIN/HEAD WITHOUT CONTRAST Coronal and Sagittal reconstruction series were provided. One or more dose reduction techniques were used (e.g., Automated exposure control, adjustment of the mA and/or kV according to patient size, use of iterative reconstruction technique. RADIATION DOSE SUMMARY: CTDlvol: 44.99 mGy DLP: 880.47 mGycm COMPARISON: None FINDINGS: Brain: Normal CSF Spaces: Normal Sinuses/Mastoids: Clear at visualized levels Bones: Unremarkable CT/Brain/Head without Contrast IMPRESSION: NORMAL NONCONTRAST HEAD CT. Reading Location: [id number]
[2025-06-15] MEDS: Lidocaine 2% /Epi 1:100 (50ml) 50 ML Vial INFILT (15:33)
[2025-06-15 16:02] VITALS: BP 122/89; PULSE 62; RESP 16; TEMP 36.7; O2SAT 100
--- OUTSIDE RECORDS SUMMARY | 2025-06-15 17:10 | XMS RPT_ITS | CCD ---
Author Organization [facility] ACCOUNTING FILE CLERK [facility] Care Team Providers Care Fashion Coordinator Name Role Phone Care Physician, No Primary Primary Care Provider Unavailable Dr. Bennett Hernandez Attending Provider [phone] Care Physician, No Primary Referring Provider Un available KELLI Quinones Attending Provider Care Physician, No Primary Referring Unava ildiana Care Physician, No Primary Primary Care Unava Mj Hutton Attending Unavailable Allergies Allergy Classification Reported Allergen(s) Allergy Type Date of Onset Reaction(s) Facility (1 source) Clindamycin Drug Allergy 05-30-2022 [facility] Work Phone: (1 source) Penicillins Allergy to substance 05-30-2022 [facility] Work Phone: (1 source) bee venom protein (honey bee) Allergy to substance 05-30-2022 [facility] Work Phone: (1 source) Clindamycin Drug Allergy 09-04-2023 [facility] Repository (1 source) Penicillins Drug allergy (disorder) 09-04-2023 [facility] Repository (1 source) bee venom protein (honey bee) Drug allergy (disorder) 09-04-2023 [facility] Medications Completed/Discontinued Medications Medication Drug Class(es) Dates Sig (Normalized) Sig (Original) hydrocortisone 10 mg/ml / neomycin 3.5 mg/ml / polymyxin b 55103 unt/ml otic suspension (1 source) Aminoglycoside Antibacterial, Polymyxin-class Antibacterial, Corticosteroid Start: 02-04-2020 End: 02-11-2020 Neomycin-Polymyxi n-Hc Discontinued 4 DRP LEFT EAR THREE TIMES A DAY 1 February 04, 2020 2:21pm February 10, 2020 11:03pm naproxen 500 mg oral tablet (1 source) Nonsteroidal Anti-inflammatory Drug Start: 08-20-2021 End: 05-30-2022 take 500 mg by mouth twice daily Naproxen Discontinued 500 MG PO TWICE A DAY August 20, 2021 12:00am May 30, 2022 7:40am ondansetron 4 mg disintegrating oral tablet (1 source) Serotonin-3 Receptor Antagonist Start: 08-20-2021 End: 05-30-2022 take 4 mg by mouth every eight hours Ondansetron Discontinued 4 MG PO Q8H August 20, 2021 12:00am May 30, 2022 7:40am pantoprazole 20 mg delayed release oral tablet (1 source) Proton Pump Inhibitor Start: 08-29-2020 End: 09-28-2020 take 20 mg by mouth twice daily Pantoprazole Discontinued 20 MG PO TWICE A DAY 60 August 29, 2020 12:00am September 28, 2020 12:02am sucralfate 1000 mg oral tablet (1 source) Aluminum Complex Start: 08-29-2020 End: 09-12-2020 take 1 g by mouth four times daily Sucralfate Discontinued 1 GM PO 4 TIMES DAILY 56 August 29, 2020 12:00am September 12, 2020 12:03am Problems Problem Classification Problem Date Documented Da te Episodic/Chronic Abdominal pain (1 source) Abdominal pain; Translations: [Unspecified abdominal pain] Episodic Esophageal disorders (1 source) Priscila-Horn tear; Translations: [Gastro-esophageal laceration-hemorrhage syndrome] Episodic Gastritis and duodenitis (1 source) Gastritis; Translations: [Gastritis, unspecified, without bleeding] Episodic Gastrointestinal hemorrhage (1 source) Hematemesis; Translations: [Hematemesis] Episodic Immunizations and screening for infectious disease (1 source) Contact with or exposure to other viral diseases; Translations: [Close exposure to 2019-nCoV] Episodic Noninfectious gastroenteritis (1 source) Gastroenteritis; Translations: [Noninfective gastroenteritis and colitis, unspecified] Episodic Other ear and sense organ disorders (1 source) Otitis externa; Translations: [Unspecified otitis externa, left ear] Chronic Other ear and sense organ disorders (2 sources) Impacted cerumen; Translations: [Impacted cerumen, unspecified ear] Episodic Skin and subcutaneous tissue infections (1 source) Paronychia; Translations: [Paronychia] Episodic Superficial injury; contusion (4 sources) Contusion of hand; Translations: [Contusion of right hand, initial encounter] Episodic Viral infection (1 source) Acute viral disease; Translations: [Viral infection, unspecified] Episodic Results Test Name Value Interpretation Reference Range Shree sawyer Urgent Care Visit Reporton 0 09-04-2023 Urgent Care Visit Report [facility] [address], [address] [place] [address] OFFICE VISIT Date of Service: 09/04/23 MR#: [id number] Acct: [id number] Name: MYLES POLANCO Rep #: [id number] : 1980 Provider: KELLI Clarke Age/Sex: 42/M Location: [facility] Status: Signed Intake Vital Signs 07/07/22 11:52 09/04/23 12:47 Height 6 ft 6 ft Weight: 140 lb BMI 19.0 BP 122/86 H Blood Pressure Location Lt brachial Position Sitting Respiration 16 Pulse 70 Pulse Source Monitor Temp 99.1 F Temp Source Temporal Pulse Oximetry (%) 98 Oxygen Delivery Method room air Intake Visit Reasons: STOMACH FLU Chief Complaint: abdominal pain, vomiting, diarrhea fatigue Electron Beam Photo Mask Maker Required: No Accompanied by: Mother Is patient in pain?: Yes Allergies bee venom protein (honey bee) Allergy (Verified 09/04/23 12:48) Rash clindamycin Allergy (Verified 09/04/23 12:48) Rash Penicillins Allergy (Verified 09/04/23 12:48) Rash Medications ondansetron HCl 8 mg tablet 8 mg PO Q8H PRN nausea and vomiting #14 tabs 09/04/23 [Rx Confirmed 09/04/23] PFSH Medical History Abrasion of right hand Contusion of right hand Smoker Social History Smoking Status: Current every day smoker tobacco type: cigarettes HPI HPI Chief Complaint: abdominal pain, vomiting, diarrhea fatigue Details: MYLES POLANCO, is a 42 M who presents to the office today for complaint of abdominal discomfort, vomiting and diarrhea along with fatigue for the past 2 days. Patient denies hematochezia, hematemesis or hemoptysis. No loss of taste or smell. No fever however he has had chills and sweats. No other associated symptoms or alleviating/aggravatin g factors. ROS Const Constitutional: No other (As above) Exam Const General: cooperative and healthy appearing [facility] Head: normocephalic and atraumatic Ears: hearing grossly normal bilaterally Face and sinus: face symmetric Eyes General: appearance normal, both eyes and all related structures Pupils: PERRL Resp Effort Inspection: normal respiratory effort Auscultation: Bilateral: Clear to Auscultation Cardio Rate: regular rate Rhythm: regular rhythm Heart Sounds: S1 normal and S2 normal GI Inspection: normal to inspection Auscultation: hyperactive bowel sounds Percussion: normal to percussion Palpation: soft, no hepatosplenomegaly, no guarding and nontender General: bimanual renal exam normal bilaterally and No CVA tenderness Skin General: no rashes or lesions noted Neuro General: patient alert and CN's II-XI intact bilaterally Psych Appearance: grossly normal Mental Status: mental status grossly normal Results POC SIGRID Covid FluAB PCR POC Sigrid Covid PCR Not Detected Last Edit by Kenyetta Hudson MA on 09/04/23 13:11 POC SIGRID FLU NOT DETECTED FLU A B Last Edit by Kenyetta Hudson MA on 09/04/23 13:11 Coding Level of Care Code Off vis,est,level 3 Diagnoses Gastroenteritis K52.9 Contact with or suspected exposure to other viral communicable disease Z20.828 Assessment and Plan Assessment and Plan (1) Gastroenteritis: Status: Acute (2) Contact with or suspected exposure to other viral communicable disease: Status: Acute Orders: Orders POC Sigrid Covid FLUAB PCR Today Medications: New ondansetron HCl 8 mg PO Q8H PRN 14 tabs 0RF nausea and vomiting Plan Patient tested negative for COVID and influenza in the office today. Ondansetron as prescribed today. Encouraged to get plenty of rest, drink lots of clear liquids, and use Tylenol or Ibuprofen (unless contraindicated) for fever and comfort. Patient also educated on other symptomatic management techniques. To be seen in 7-10 days if no improvement; sooner if worsening of symptoms. Patient advised of potential red flags and when appropriate to report to the ED. Patient verbalized understanding and agreement with all the above. 09/04/23 1735 Date Mj Lizama Signature: Date (if applicable) CC: Normal [facility] PROGRESSon 08-12-2018 Protein mass conc HNO ID: [id number] Author: Heron Velasco Service: (none) Author Type: Physician Type: Progress Notes Filed: 08/12/2018 7:10 PM Note Text: OPERATIVE NOTATION FOR [facility] SURGICAL PROCEDURE. August 11, 2018 Myles Polanco 1980 [id number] male PROCEDURE: EGD WITH BIOPSY - 22785-532 SURGEON: Hawk Velasco M.D. FACS PIZZA DRIVER: None DEPT: WQ PROVIDER: [id number] Velasco MD POS: [id number] DIAGNOSIS: (R11.2) Nausea and vomiting, intractability of vomiting not specified, unspecified vomiting type (primary encounter diagnosis) ASA CLASS: 2 - mild FINDINGS: COMPLICATIONS: None PMHx - PAST MEDICAL HISTORY Diagnosis Date - NEGATIVE MEDICAL HISTORY COMORBIDITIES - None Post Op Occurrences - None Wound Classification - Clean Contaminated Operative note dictated in the [facility] dictation system. Heron Velasco MD [facility] CNOVon 05-11-2018 CNOV Office Visit (UCWSTR ) MYLES POLANCO ([id number]) 1980 M Date Time Provider Department 05/11/18 1:30 PM [facility] During your visit today, we recorded the [...] of appetite, x 4 days Primary Visit Diagnosis:Gastroenteri tis [K52.9] Problem List As Of Date: 05/11/2018 (None) Letter Text [place] [facility] [place], [place] [address] 05/11/2018 Myles Polanco [facility]# [id number] 128 07/[address] [facility] [id number] TO WHOM IT MAY CONCERN: This is to confirm that Myles Polanco had an appointment and was seen at the [facility] in the Department of Urgent Care by Gerson Miller MD on 05/11/2018 for illness and should be excused from work today. Sincerely, Gerson Miller MD Encounter Status:Closed by GERSON MILLER MD on 05/11/18 Normal [facility] PROGRESSon 05-11-2018 Protein mass conc HNO ID: [id number] Author: Gerson Miller Service: (none) Author Type: [...] in vomit or stool. Gerson Miller MD [facility] Vital Signs Date Time Vital Sign Value Performing Clinician Jaymejasper mckeon 07-07-2022 11:52-0500 Body height 182.88 cm No Primary Care Physician [facility] Work Phone: 07-07-2022 11:52-0500 Body mass index (BMI) [Ratio] 19 kg/m2 No Primary Care Physician [facility] Work Phone: 07-07-2022 11:52-0500 Body temperature 97.6 [degF] No Primary Care Physician [facility] Work Phone: 07-07-2022 11:52-0500 Body weight 63.5 kg No Primary Care Physician [facility] Work Phone: 07-07-2022 11:52-0500 Diastolic blood pressure 100 mm[Hg] No Primary Care Physician [facility] Work Phone: 07-07-2022 11:52-0500 Heart rate 70 /min No Primary Care Physician [facility] Work Phone: 07-07-2022 11:52-0500 Respiratory rate 16 /min No Primary Care Physician [facility] Work Phone: 07-07-2022 11:52-0500 SaO2% (BldA) [Mass fraction] 100 % No Primary Care Physician [facility] Work Phone: 07-07-2022 11:52-0500 Systolic blood pressure 132 mm[Hg] No Primary Care Physician [facility] Work Phone: Encounters Encounter Date Encounter Type Care Provider Facility Start: 09-04-2023 End: 09-04-2023 ambulatory No Primary Care Physician Facility[place] Start: 07-07-2022 End: 07-07-2022 Emergency department patient visit No Primary Care Physician [facility] Start: 05-30-2022 End: 05-30-2022 Patient encounter procedure No Primary Care Physician [facility] Start: 05-11-2018 End: 05-12-2018 Patient encounter procedure [facility] Procedures Date Procedure Procedure Detail Performing Clinician Start: 05-30-2022 Plain x-ray of hand No Primary Care Physician Plan of Treatment Date Care Activity Detail Author Patient Education ED Cerumen Impaction Tr eated [facility] Work Phone: Patient referral [facility] Work Phone: Immunizations Immunization Date Immunization Notes Care Provider Fa cility 05-30-2022 tetanus toxoid, redu gabby diphtheria toxoid, and acellular pertussis vaccine, adsorbed No Primary Care Physician [facility] Work Phone: Payers Date Payer Category Payer Self-pay [id number] 2023 Unknown [id number] Unknown [facility] [id number] Unknown [id number] Social History Date Type Detail Facility Start: 07-07-2022 Tobacco smoking stat [facility] Unknown if ever smoked [facility] Work Phone: Start: 04-15-2020 None [facility] Work Phone: Start: 04-15-2020 Alone [facility] Work Phone: Start: 08-29-2020 Cigarettes [facility] Work Phone: Start: 1980 Sex Assigned At Male [facility] Work Phone: Evaluation note Note Date & Type Note Facility Evaluation note Diagnosis Onset Date Abrasion of right hand acute Contusion of right hand acut e [facility] Work Phone: Hospital Discharge instructions Note Date & Type Note Facility Hospital Discharge instructions Additional Instructions Use either Cerumenex or Debrox drops to your right ear to keep the wax down. Follow-up with ENT if this occurs again and they can clean them out. [facility] Work Phone: Summary Purpose Family History No Family History Records Found Relationship Condition Age at Onset Recorded Date/T lucho Unknown Family History?No pe rtinent history Unknown August 11, 2018 10:37am Family History?No pe rtinent history Unknown August 11, 2018 10:37am Advance Directives No Advanced Directives Records Found Advance Directive Response Recorded Date/ Time Living Will No July 07 11:55am Power of Senior Landscape Architect No July 07, 2022 11:55am Procedure Findings Note Operative Note (Enc) (GENSWS ) Progress Notes: Heron Velasco MD 08/12/2018 7:10 PM Signed OPERATIVE NOTATION FOR [facility] SURGICAL PROCEDURE. August 11, 2018 Myles Polanco 1980 [id number] male PROCEDURE: EGD WITH BIOPSY - [id number] SURGEON: Hawk Velasco M.D. FACS PIZZA DRIVER: None DEPT: W PROVIDER: [id number] Velasco MD POS: [id number] DIAGNOSIS: (R11.2) Nausea and vomiting, intractability of vomiting not specified, unspecified vomiting type (primary encounter diagnosis) ASA CLASS: 2 - mild FINDINGS: COMPLICATIONS: None PMHx - PAST MEDICAL HISTORY Diagnosis Date - NEGATIVE MEDICAL HISTORY COMORBIDITIES - None Post Op Occurrences - None Wound Classification - Clean Contaminated Operative note dictated in the [facility] dictation system. Heron Velasco MD Encounter Status:Closed by HERON VELASCO MD on 08/12/18 Chief Complaint and Reason for Visit Chief Complaint xray R HAND CRUSH INJURY/HARTZLERS DAIRY ear Reason for Visit Abrasion of right gonsalez nd Contusion of right hand Additional Source Comments (unrecognized sect ion and content) No Status Records FoundNo Status Records Found INFORMATION SOURCE (unrecogn ized section and content) DATE CREATED AUTHOR 08/19/2018 [facility] DATE CREATED AUTHOR AUTHOR'S SONY ANANDAFRANCESCA 09/05/2023 [facility] Goals (unrecognized section and content) Goals may be documented in a n alternate section FOR RECORDS PERTAINING TO PATIENTS WHO ARE OR HAVE BEEN ENROLLED IN A CHEMICAL DEPENDENCY/SUBSTANCEABUSE PROGRAM, SOME INFORMATION MAY BE OMITTED. This clinical summary was aggregated from multiple sources. Caution should be exercised in using it in the provision of clinical care. This summary normalizes information from multiple sources, and as a consequence, information in this document may materially change the coding, format and clinical context of patient data. In addition, data may be omitted in some cases. CLINICAL DECISIONS SHOULD BE BASED ON THE PRIMARY CLINICAL RECORDS. [employer] provides no warranty or guarantee of the accuracy or completeness of information in this document.
== END 2025-06-15 16:08 | disposition home or self-care (01) ==
PROVIDERS: Emergency Provider Student in an Organized Health Care Education/Training Program; Visit Provider Student in an Organized Health Care Education/Training Program
DX: S01.01XA Laceration without foreign body of scalp, initial encounter (principal); R51.9 Headache, unspecified; W19.XXXA Unspecified fall, initial encounter; F17.210 Nicotine dependence, cigarettes, uncomplicated
CPT/HCPCS: 12002; 70450; 99282